=== PATIENT | male | born 1930 | race Caucasian/White ===

== ENCOUNTER 2020-06-02 17:06 | Inpatient (IN) | payer OTHER, MEDICARE ==
--- OUTSIDE RECORDS SUMMARY | 2020-06-02 17:10 | XMS REPORT | Continuity of Care Document ---
:1930 Author Organization [facility] t Address [address] [place] [address] Care Team Providers Name Role Phone Iban RUCKER Attending Clinician Renu RUCKER Attending Clinician 1, Lab Attending Clinician Unavailable Doctor Unassigned, Name Attending Clinician Unavailable Renu RUCKER Admitting Clinician Payers Payer Name Policy Type Policy Number Effective Date Expiration Date S ource Problems This patient has no known problems. Allergies, Adverse Reactions, Alerts Allergy Allergy Status Severity Reaction(s) Onset Inactive Treating Comm ents Source Name Type Date Date Clinician [place] DA Active [place] [facility] ins 06-19 00:00: [address] Medications This patient has no known medications. Procedures This patient has no known procedures. Encounters Start End Encounter Admission Attending Care Care Encounter Source Date/Time Date/Time Type Type Clinicians Facility Department ID 2019-06-19 2019-06-20 Emergency Dami Ferrera [facility] [id number] 15:24:08 15:42:00 Chase Sears [id number] [place] [id number] [place] [id number] 2018-09-04 2018-09-04 Publications Production Supervisor 1, Adc Lab [facility] [id number] 08:53:48 09:08:48 Visit Vinicio [id number] [place] 4.2.7.2.686 [place] [id number] 2018-09-04 2018-09-04 Orders Doctor KORI [id number] 00:00:00 00:00:00 Only Unassigned, LENY 350.1.13.10 [facility] [id number] [id number] Results Test Description Test Time Test Comments Results Result Comments Source ACT-ISTAT 2019-06-24 10:27:00 Test Item Value Reference Range Interpretation Comme nts ACT-ISTAT (test code = ACTI) 197 SEC 74-137 H BASIC METABOLIC [id number] 06:24:00 Test Item Value Reference Range Interpretation Comments SODIUM (test code = 136 MMOL/L 137-145 L NA) POTASSIUM (test code = 4.3 MMOL/L 3.5-5.1 N K) CHLORIDE (test code = 107 MMOL/L 98-107 N CL) CARBON DIOXIDE (test 25 MMOL/L 22-30 N code = CO2) ANION GAP (test code = 8 MMOL/L 14-24 L GAP) GLUCOSE (test code = 102 MG/DL 74-106 N GLU) BLOOD UREA NITROGEN 26 MG/DL 9-20 H (test code = BUN) GLOMERULAR FILTRATION 41 Report ing units: RATE (test code = GFR) ml/mi n/1.73 m2 (Modified MDRD Formula)Referen ce Range: > or = 6 0 ml/min/1.73 m2 CREATININE (test code 1.60 MG/DL 0.66-1.25 H = CREAT) CALCIUM (test code = 8.5 MG/DL 8.4-10.2 N CA) BASIC METABOLIC [id number] 06:23:00 Test Item Value Reference Range Interpretation Comments SODIUM (test code = 136 MMOL/L 137-145 L NA) POTASSIUM (test code = 4.3 MMOL/L 3.5-5.1 N K) CHLORIDE (test code = 107 MMOL/L 98-107 N CL) CARBON DIOXIDE (test MMOL/L 22-30 code = CO2) GLUCOSE (test code = MG/DL 74-106 GLU) BLOOD UREA NITROGEN MG/DL 9-20 (test code = BUN) GLOMERULAR FILTRATION 41 Report ing units: RATE (test code = GFR) ml/mi n/1.73 m2 (Modified MDRD Formula)Referen ce Range: > or = 6 0 ml/min/1.73 m2 CREATININE (test code 1.60 MG/DL 0.66-1.25 H = CREAT) CALCIUM (test code = MG/DL 8.7-9.7 CA) BASIC METABOLIC [id number] 06:23:00 Test Item Value Reference Range Interpretation Comments SODIUM (test code = 136 MMOL/L 137-145 L NA) POTASSIUM (test code = 4.3 MMOL/L 3.5-5.1 N K) CHLORIDE (test code = 107 MMOL/L 98-107 N CL) CARBON DIOXIDE (test 25 MMOL/L 22-30 N code = CO2) ANION GAP (test code = 8 MMOL/L 14-24 L GAP) GLUCOSE (test code = MG/DL 74-106 GLU) BLOOD UREA NITROGEN 26 MG/DL 9-20 H (test code = BUN) GLOMERULAR FILTRATION 41 Report ing units: RATE (test code = GFR) ml/mi n/1.73 m2 (Modified MDRD Formula)Referen ce Range: > or = 6 0 ml/min/1.73 m2 CREATININE (test code 1.60 MG/DL 0.66-1.25 H = CREAT) CALCIUM (test code = MG/DL 8.7-9.7 CA) BASIC METABOLIC [id number] 06:21:00 Test Item Value Reference Range Interpretation Comments SODIUM (test code = NA) 136 MMOL/L 137-145 L POTASSIUM (test code = K) 4.3 MMOL/L 3.5-5.1 N CHLORIDE (test code = CL) 107 MMOL/L 98-107 N CARBON DIOXIDE (test code = CO2) MMOL/L 22-30 GLUCOSE (test code = GLU) MG/DL 74-106 BLOOD UREA NITROGEN (test code = MG/DL 9-20 BUN) GLOMERULAR FILTRATION RATE (test code = GFR) CREATININE (test code = CREAT) MG/DL 0.66-1.25 CALCIUM (test code = CA) MG/DL 8.7-9.7 BASIC METABOLIC [id number] 06:20:00 Test Item Value Reference Range Interpretation Comments SODIUM (test code = NA) MMOL/L 137-145 POTASSIUM (test code = K) MMOL/L 3.5-5.1 CHLORIDE (test code = CL) 107 MMOL/L 98-107 N CARBON DIOXIDE (test code = CO2) MMOL/L 22-30 GLUCOSE (test code = GLU) MG/DL 74-106 BLOOD UREA NITROGEN (test code = MG/DL 9-20 BUN) GLOMERULAR FILTRATION RATE (test code = GFR) CREATININE (test code = CREAT) MG/DL 0.66-1.25 CALCIUM (test code = CA) MG/DL 8.7-9.7 CBC W/AUTO [id number] 05:46:00 Test Item Value Reference Range Interpretation Comments WHITE BLOOD CELL (test code = 6.4 K/MM3 3.8-9.8 N WBC) RED BLOOD CELL (test code = 3.37 M/MM3 3.95-5.67 L RBC) HEMOGLOBIN (test code = HGB) 11.0 G/DL 12.4-16.7 L HEMATOCRIT (test code = HCT) 33.6 % 35.9-49.5 L MEAN CELL VOLUME (test code = 100 fL 81.7-96.1 H MCV) MEAN CELL HGB (test code = MCH) 32.6 pg 27.6-33.2 N MEAN CELL HGB CONCETRATION 32.7 % 32.9-35.5 L (test code = MCHC) RED CELL DISTRIBUTION WIDTH 13.3 % 12.1-15.2 N (test code = RDW) PLATELET COUNT (test code = 124 K/MM3 129-368 L PLT) MEAN PLATELET VOLUME (test code 10.0 fl 7.4-10.4 N = MPV) NEUTROPHIL % (test code = NT%) 65.6 % 43-75 N IMMATURE GRANULOCYTE % (test 0.3 % 0.0-2.0 N code = IG%) LYMPHOCYTE % (test code = LY%) 19.7 % 14-44 N MONOCYTE % (test code = MO%) 10.4 % 4-13 N EOSINOPHIL % (test code = EO%) 3.1 % 0-6 N BASOPHIL % (test code = BA%) 0.9 % 0-2 N NUCLEATED RBC % (test code = 0.0 % 0-1.0 N NRBC%) NEUTROPHIL # (test code = NT#) 4.22 K/mm3 2.0-7.6 N IMMATURE GRANULOCYTE # (test 0.02 x10 3/uL 0-0.03 N code = IG#) LYMPHOCYTE # (test code = LY#) 1.27 K/mm3 1.0-3.8 N MONOCYTE # (test code = MO#) 0.67 K/mm3 0.1-0.8 N EOSINOPHIL # (test code = EO#) 0.20 K/mm3 0.0-0.2 N BASOPHIL # (test code = BA#) 0.06 K/mm3 0.0-0.2 N NUCLEATED RBC # (test code = 0.00 K/mm3 0.0-0.1 N NRBC#) GLUCOSE BEDSIDE [id number] 08:22:00 Test Item Value Reference Range Interpretation Comments GLUCOSE BEDSIDE TESTING (test code = 88 MG/DL 60-99 N GLUBED) GLUCOSE BEDSIDE [id number] 19:50:00 Test Item Value Reference Range Interpretation Comments GLUCOSE BEDSIDE TESTING (test code 136 MG/DL 60-99 H = GLUBED) GLUCOSE BEDSIDE [id number] 16:50:00 Test Item Value Reference Range Interpretation Comments GLUCOSE BEDSIDE TESTING (test code 127 MG/DL 60-99 H = GLUBED) GLUCOSE BEDSIDE [id number] 12:13:00 Test Item Value Reference Range Interpretation Comments GLUCOSE BEDSIDE TESTING (test code 120 MG/DL 60-99 H = GLUBED) GLUCOSE BEDSIDE [id number] 11:34:00 Test Item Value Reference Range Interpretation Comments GLUCOSE BEDSIDE TESTING (test code 128 MG/DL 60-99 H = GLUBED) - XR CHEST [id number] 07:56:00 Patient Name: MABLE LUNDBERG Unit No: [id number] EXAMS: CPT CODE: [id number] XR CHEST 1V 16925 Clinical Information: N STEMI. Chest pain. Dictation Location:J9 COMPARISON: No prior. FINDINGS: Portable frontal view of the chest taken at 4 hours semierect shows monitoring electrodes overlying the chest wall. Mild cardiomegaly. Mild central vascular interstitial prominence versus suboptimal depth of inspiration. No consolidation or effusion. Mild degenerative change in the spine and shoulders. IMPRESSION: Changes in the chest could be from cardiac decompensation or fluid overload, emphasized by low lung volumes. at 0756 Reported and signed by: Omar Treviño M.D. CC: Technologist: Avery Izquierdo, RT(R) Transcrpt Date/Tm/Trnsp: 06/21/2019 (0756) [email or web address] Orig Print D/T: S: 06/21/2019 (0759) [facility] NAME: MABLE LUNDBERG [id number] [address] PHYS: Miah [place] [address] : 1930 AGE: 89 SEX: M LOC: Sudheer Ervin PHONE #: [phone] EXAM DATE: 06/21/2019 STATUS: ADM IN FAX #: [phone] RADIOLOGY NO: PAGE 1 Signed ReportGLUCOSE BEDSIDE [id number] 07:49:00 Test Item Value Reference Range Interpretation Comments GLUCOSE BEDSIDE TESTING (test code 103 MG/DL 60-99 H = GLUBED) COMPREHENSIVE METABOLIC [id number] 07:03:00 Test Item Value Reference Range Interpretation Comments SODIUM (test code = NA) 136 MMOL/L 137-145 L POTASSIUM (test code = 3.8 MMOL/L 3.5-5.1 N K) CHLORIDE (test code = 106 MMOL/L 98-107 N CL) CARBON DIOXIDE (test 24 MMOL/L 22-30 N code = CO2) ANION GAP (test code = 10 MMOL/L 14-24 L GAP) GLUCOSE (test code = 112 MG/DL 74-106 H GLU) BLOOD UREA NITROGEN 27 MG/DL 9-20 H (test code = BUN) GLOMERULAR FILTRATION 41 Report ing units: RATE (test code = GFR) ml/mi n/1.73 m2 (Modified MDRD Formula)Referen ce Range: > or = 6 0 ml/min/1.73 m2 CREATININE (test code = 1.60 MG/DL 0.66-1.25 H CREAT) TOTAL PROTEIN (test 5.8 G/DL 6.2-7.6 L code = PROT) ALBUMIN (test code = 3.1 G/DL 3.5-5.0 L ALB) CALCIUM (test code = 8.8 MG/DL 8.4-10.2 N CA) BILIRUBIN TOTAL (test 0.3 MG/DL 0.2-1.3 N code = BILT) SGOT/AST (test code = 20 UNITS/L 17-59 N AST) SGPT/ALT (test code = 13 UNITS/L <50 ALT) ALKALINE PHOSPHATASE 64 UNITS/L 38-126 N (test code = ALKP) LIPID PROFILE (CORONARY RISK)2019-06-21 07:03:00 Test Item Value Reference Range Interpretation Comments TRIGLYCERIDES (test 139 MG/DL TRIGLYCE RIDES code = TRIG) REFERENCE RANGE:Normal: < 150 mg/dLBorderline High: 150-199 mg/dLHi gh: 200-499 mg/dLVe ry High: >=500 mg/ dL CHOLESTEROL (test code 102 MG/DL <200 = CHOL) HDL CHOLESTEROL (test 27 MG/DL 40-59 L code = HDL) LIPOPROTEIN LDL (test 55 MG/DL 0-99 N code = LDL) OPTIMAL........ .<100 mg/dLNEAR OPTIMAL/ABOVE OPTIMAL........ .100-12 9 mg/dL BORDERLINE HIGH.........13 0-159 mg/dL HIGH.........16 0-189 mg/dL VERY HIGH...... ...>/= 190 mg/dL [id number] 07:03:00 Test Item Value Reference Range Interpretation Comments MAGNESIUM (test code = MAG) 1.5 MG/DL 1.6-2.3 L LIPOPROTEIN LDL [id number] 07:03:00 Test Item Value Reference Range Interpretation Comments LIPOPROTEIN LDL DIRECT 59 mg/dL 100-129 L ===== (test code = LDLDIR) ======= ==Refe rence Interval: mg/dL mmol/L--------- ------ ------ ------ --Optimal <100 <2.6Near/abov e optimal 100-129 2.6-3.3Borderli ne High 130-159 3.4-4.1High 16 0-189 4.1-4.9Ve ry High >=190 >=4.9========= This LDL result is a direct measurement.=== ====== [id number] 07:03:00 Test Item Value Reference Range Interpretation Comments TROPONIN-I (test 0.195 NG/ML 0.012-0.033 HH CALLED TO Rena RODRIGUEZ R& code = TROPI) READBACK ON AT 0539 BY Dyllan Cotter COMPREHENSIVE METABOLIC [id number] 05:52:00 Test Item Value Reference Range Interpretation Comments SODIUM (test code = NA) 136 MMOL/L 137-145 L POTASSIUM (test code = 3.8 MMOL/L 3.5-5.1 N K) CHLORIDE (test code = 106 MMOL/L 98-107 N CL) CARBON DIOXIDE (test 24 MMOL/L 22-30 N code = CO2) ANION GAP (test code = 10 MMOL/L 14-24 L GAP) GLUCOSE (test code = 112 MG/DL 74-106 H GLU) BLOOD UREA NITROGEN 27 MG/DL 9-20 H (test code = BUN) GLOMERULAR FILTRATION 41 Report ing units: RATE (test code = GFR) ml/mi n/1.73 m2 (Modified MDRD Formula)Referen ce Range: > or = 6 0 ml/min/1.73 m2 CREATININE (test code = 1.60 MG/DL 0.66-1.25 H CREAT) TOTAL PROTEIN (test 5.8 G/DL 6.2-7.6 L code = PROT) ALBUMIN (test code = 3.1 G/DL 3.5-5.0 L ALB) CALCIUM (test code = 8.8 MG/DL 8.4-10.2 N CA) BILIRUBIN TOTAL (test 0.3 MG/DL 0.2-1.3 N code = BILT) SGOT/AST (test code = 20 UNITS/L 17-59 N AST) SGPT/ALT (test code = 13 UNITS/L <50 ALT) ALKALINE PHOSPHATASE 64 UNITS/L 38-126 N (test code = ALKP) LIPID PROFILE (CORONARY RISK)2019-06-21 05:52:00 Test Item Value Reference Range Interpretation Comments TRIGLYCERIDES (test 139 MG/DL TRIGLYCE RIDES code = TRIG) REFERENCE RANGE:Normal: < 150 mg/dLBorderline High: 150-199 mg/dLHi gh: 200-499 mg/dLVe ry High: >=500 mg/ dL CHOLESTEROL (test code 102 MG/DL <200 = CHOL) HDL CHOLESTEROL (test 27 MG/DL 40-59 L code = HDL) LIPOPROTEIN LDL (test 55 MG/DL 0-99 N code = LDL) OPTIMAL........ .<100 mg/dLNEAR OPTIMAL/ABOVE OPTIMAL........ .100-12 9 mg/dL BORDERLINE HIGH.........13 0-159 mg/dL HIGH.........16 0-189 mg/dL VERY HIGH...... ...>/= 190 mg/dL [id number] 05:52:00 Test Item Value Reference Range Interpretation Comments MAGNESIUM (test code = MAG) 1.5 MG/DL 1.6-2.3 L LIPOPROTEIN LDL [id number] 05:52:00 Test Item Value Reference Range Interpretation Comments LIPOPROTEIN LDL DIRECT (test code = mg/dL 100-129 LDLDIR) [id number] 05:52:00 Test Item Value Reference Range Interpretation Comments TROPONIN-I (test 0.195 NG/ML 0.012-0.033 CALLED TO Rena RODRIGUEZ R& code = TROPI) READBACK ON AT 0539 BY Dyllan Cotter COMPREHENSIVE METABOLIC [id number] 05:39:00 Test Item Value Reference Range Interpretation Comments SODIUM (test code = NA) 136 MMOL/L 137-145 L POTASSIUM (test code = 3.8 MMOL/L 3.5-5.1 N K) CHLORIDE (test code = 106 MMOL/L 98-107 N CL) CARBON DIOXIDE (test 24 MMOL/L 22-30 N code = CO2) ANION GAP (test code = 10 MMOL/L 14-24 L GAP) GLUCOSE (test code = 112 MG/DL 74-106 H GLU) BLOOD UREA NITROGEN 27 MG/DL 9-20 H (test code = BUN) GLOMERULAR FILTRATION 41 Report ing units: RATE (test code = GFR) ml/mi n/1.73 m2 (Modified MDRD Formula)Referen ce Range: > or = 6 0 ml/min/1.73 m2 CREATININE (test code = 1.60 MG/DL 0.66-1.25 H CREAT) TOTAL PROTEIN (test 5.8 G/DL 6.2-7.6 L code = PROT) ALBUMIN (test code = 3.1 G/DL 3.5-5.0 L ALB) CALCIUM (test code = 8.8 MG/DL 8.4-10.2 N CA) BILIRUBIN TOTAL (test 0.3 MG/DL 0.2-1.3 N code = BILT) SGOT/AST (test code = 20 UNITS/L 17-59 N AST) SGPT/ALT (test code = 13 UNITS/L <50 ALT) ALKALINE PHOSPHATASE 64 UNITS/L 38-126 N (test code = ALKP) LIPID PROFILE (CORONARY RISK)2019-06-21 05:39:00 Test Item Value Reference Range Interpretation Comments TRIGLYCERIDES (test 139 MG/DL TRIGLYCE RIDES code = TRIG) REFERENCE RANGE:Normal: < 150 mg/dLBorderline High: 150-199 mg/dLHi gh: 200-499 mg/dLVe ry High: >=500 mg/ dL CHOLESTEROL (test code 102 MG/DL <200 = CHOL) HDL CHOLESTEROL (test MG/DL 40-59 code = HDL) LIPOPROTEIN LDL (test 55 MG/DL 0-99 N code = LDL) OPTIMAL........ .<100 mg/dLNEAR OPTIMAL/ABOVE OPTIMAL........ .100-12 9 mg/dL BORDERLINE HIGH.........13 0-159 mg/dL HIGH.........16 0-189 mg/dL VERY HIGH...... ...>/= 190 mg/dL [id number] 05:39:00 Test Item Value Reference Range Interpretation Comments MAGNESIUM (test code = MAG) 1.5 MG/DL 1.6-2.3 L LIPOPROTEIN LDL [id number] 05:39:00 Test Item Value Reference Range Interpretation Comments LIPOPROTEIN LDL DIRECT (test code = mg/dL 100-129 LDLDIR) [id number] 05:39:00 Test Item Value Reference Range Interpretation Comments TROPONIN-I (test 0.195 NG/ML 0.012-0.033 CALLED TO Rena RODRIGUEZ R& code = TROPI) READBACK ON AT 0539 BY Dyllan Cotter COMPREHENSIVE METABOLIC [id number] 05:24:00 Test Item Value Reference Range Interpretation Comments SODIUM (test code = NA) 136 MMOL/L 137-145 L POTASSIUM (test code = 3.8 MMOL/L 3.5-5.1 N K) CHLORIDE (test code = 106 MMOL/L 98-107 N CL) CARBON DIOXIDE (test 24 MMOL/L 22-30 N code = CO2) ANION GAP (test code = 10 MMOL/L 14-24 L GAP) GLUCOSE (test code = 112 MG/DL 74-106 H GLU) BLOOD UREA NITROGEN 27 MG/DL 9-20 H (test code = BUN) GLOMERULAR FILTRATION 41 Report ing units: RATE (test code = GFR) ml/mi n/1.73 m2 (Modified MDRD Formula)Referen ce Range: > or = 6 0 ml/min/1.73 m2 CREATININE (test code = 1.60 MG/DL 0.66-1.25 H CREAT) TOTAL PROTEIN (test 5.8 G/DL 6.2-7.6 L code = PROT) ALBUMIN (test code = 3.1 G/DL 3.5-5.0 L ALB) CALCIUM (test code = 8.8 MG/DL 8.4-10.2 N CA) BILIRUBIN TOTAL (test 0.3 MG/DL 0.2-1.3 N code = BILT) SGOT/AST (test code = 20 UNITS/L 17-59 N AST) SGPT/ALT (test code = 13 UNITS/L <50 ALT) ALKALINE PHOSPHATASE 64 UNITS/L 38-126 N (test code = ALKP) LIPID PROFILE (CORONARY RISK)2019-06-21 05:24:00 Test Item Value Reference Range Interpretation Comments TRIGLYCERIDES (test 139 MG/DL TRIGLYCE RIDES code = TRIG) REFERENCE RANGE:Normal: < 150 mg/dLBorderline High: 150-199 mg/dLHi gh: 200-499 mg/dLVe ry High: >=500 mg/ dL CHOLESTEROL (test code 102 MG/DL <200 = CHOL) HDL CHOLESTEROL (test MG/DL 40-59 code = HDL) LIPOPROTEIN LDL (test MG/DL 0-99 code = LDL) [id number] 05:24:00 Test Item Value Reference Range Interpretation Comments MAGNESIUM (test code = MAG) 1.5 MG/DL 1.6-2.3 L [id number] 05:24:00 Test Item Value Reference Range Interpretation Comments TROPONIN-I (test code = TROPI) NG/ML 0.0-0.045 PROTHROMBIN [id number] 05:17:00 Test Item Value Reference Range Interpretation Comments PROTHROMBIN TIME 12.3 SECONDS 9.4-12.5 N PATIENT (test code = PTP) INTERNATIONAL NORMAL 1.1 The INR is to be RATIO (test code = used only for INR) monitoring oral anticoagulantth erap y. INDICATION I NR VALUE ---- ---- ---- -------1. Prophylaxis, de ep venous thrombos is, including hig h risk surgery. 2.0 - 3.0 2. Prophylaxis, de ep venous thrombos is, hip surgery, treatment for d eep venous thrombosis or pulmonary prevention of systemic emboli sm in patients wit h valvular heart disease, atrial fibrillation, tissue heart va lve, or acute myocar dial infarction. 2.0 - 3 .0 3. Mechanical prosthesis hear t valves, recurrent syste georges embolism. 3.0 - 4.5 PATIENT REFUSE THE BLOOD DRAW. NOTIFIED PATIENT CARE STAFF:CUATE ON 06/20/19 AT 1948 BY KARYNSSUNABLE TO DRAW BLOOD, REASON: PT IS NOT HERE NOTIFIED PATIENT CARE STAFF: CECIL QUINTERO WILL CALL MELLISSA 06/20/19AT 1630 BY Geovanna Feng W/AUTO [id number] 05:03:00 Test Item Value Reference Range Interpretation Comments WHITE BLOOD CELL (test code = 4.6 K/MM3 3.8-9.8 N WBC) RED BLOOD CELL (test code = 3.18 M/MM3 3.95-5.67 L RBC) HEMOGLOBIN (test code = HGB) 10.7 G/DL 12.4-16.7 L HEMATOCRIT (test code = HCT) 31.3 % 35.9-49.5 L MEAN CELL VOLUME (test code = 98 fL 81.7-96.1 H MCV) MEAN CELL HGB (test code = MCH) 33.6 pg 27.6-33.2 H MEAN CELL HGB CONCETRATION 34.2 % 32.9-35.5 N (test code = MCHC) RED CELL DISTRIBUTION WIDTH 13.2 % 12.1-15.2 N (test code = RDW) PLATELET COUNT (test code = 140 K/MM3 129-368 N PLT) MEAN PLATELET VOLUME (test code 10.5 fl 7.4-10.4 H = MPV) NEUTROPHIL % (test code = NT%) 58.4 % 43-75 N IMMATURE GRANULOCYTE % (test 0.2 % 0.0-2.0 N code = IG%) LYMPHOCYTE % (test code = LY%) 26.0 % 14-44 N MONOCYTE % (test code = MO%) 10.6 % 4-13 N EOSINOPHIL % (test code = EO%) 3.7 % 0-6 N BASOPHIL % (test code = BA%) 1.1 % 0-2 N NUCLEATED RBC % (test code = 0.0 % 0-1.0 N NRBC%) NEUTROPHIL # (test code = NT#) 2.70 K/mm3 2.0-7.6 N IMMATURE GRANULOCYTE # (test 0.01 x10 3/uL 0-0.03 N code = IG#) LYMPHOCYTE # (test code = LY#) 1.20 K/mm3 1.0-3.8 N MONOCYTE # (test code = MO#) 0.49 K/mm3 0.1-0.8 N EOSINOPHIL # (test code = EO#) 0.17 K/mm3 0.0-0.2 N BASOPHIL # (test code = BA#) 0.05 K/mm3 0.0-0.2 N NUCLEATED RBC # (test code = 0.00 K/mm3 0.0-0.1 N NRBC#) PATIENT REFUSE THE BLOOD DRAW. NOTIFIED PATIENT CARE STAFF:CUATE ON 06/20/19 AT 1948 BY Z.LAB.SSUNABLE TO DRAW BLOOD, REASON: PT IS NOT HERENOTIFIED PATIENT CARE STAFF: CECIL QUINTERO WILL CALL LABON 06/20/19 AT 1631 BY Donavan Feng
--- NOTE | 2020-06-02 17:42 | RAD REPORT ---
EXAM DESCRIPTION: CT - Ct Stroke Brain Wo Cont - 06/02/2020 5:30 pm CLINICAL HISTORY: Dizziness COMPARISON: none TECHNIQUE: Computed axial tomography of the head was obtained. All CT scans are performed using dose optimization technique as appropriate and may include automated exposure control or mA/KV adjustment according to patient size. FINDINGS: An intracranial bleed is not seen . The ventricles are normal in caliber. No extra-axial fluid collection is noted. Mild low-density within periventricular, deep and subcortical white matter likely ischemic changes se condary to small vessel disease Fluid within the sinuses/ mastoids is not seen. IMPRESSION: No acute intracranial abnormality is seen. If patient's symptoms persist MRI of the bra in would be recommended. Zach of the emergency room was notified at 5:37 p.m. June 02, 2020
--- NOTE | 2020-06-02 17:47 | RAD REPORT ---
EXAM DESCRIPTION: CT - C Spine Wo Con - 06/02/2020 5:34 pm CLINICAL HISTORY: Neck injury status post fall. Neck pain COMPARISON: None. TECHNIQUE: Computed axial tomography of the cervical spine were obtained with sagittal and coronal r econstruction images generated and reviewed. All CT scans are performed using dose optimization technique as appropriate and may include automated exposure control or mA/KV adjustment according to patient size. FINDINGS: No acute cervical fracture seen. Bony/calcific density near the tip of the dens appears chronic. No dislocation. Spondylosis involves the cervical spine. IMPRESSION: No acute cervical fracture seen . If the patient continues have symptoms to suggest spinal cord/spinal canal pathology then MRI would b e recommended.
--- NOTE | 2020-06-02 17:57 | RAD REPORT ---
EXAM DESCRIPTION: CT - Chest Abd Pelvis Wo Con - 06/02/2020 5:34 pm CLINICAL HISTORY: Fall with chest and abdominal pain COMPARISON: none TECHNIQUE: Computed axial tomography of the chest, abdomen and pelvis was obtained. Oral contrast wa s not given. IV contrast was not requested. All CT scans are performed using dose optimization technique as appropriate and may include automated exposure control or mA/KV adjustment according to patient size. Computed axial tomography of the chest obtained. Oral contrast was not given. IV contrast was not req uested. FINDINGS: The evaluation of mediastinum, haley, vessels, bowel and solid organs is limited secondary to the lack of IV contrast administration A lung contusion is not present. A pleural effusion is not present. A pericardial effusion is not seen. Coronary arterial calcificatio ns. A moderate hiatal hernia A mediastinal hematoma is not seen. The liver, spleen, pancreas, adrenals, kidneys and bladder do not demonstrate a traumatic injury. Left lower quadrant colostomy. Peristomal hernia. Infrarenal abdominal aortic aneurysm with an AP dre meter of 3.9 centimeters IMPRESSION: No traumatic injury involving the chest, abdomen or pelvis is seen 3.9 centimeter abdominal aortic aneurysm
[2020-06-02 18:15] LABS: Absolute Lymphocytes (CBC) 1.3 K/uL (0.7-4.9); Hematocrit 38.6 % (39.6-49.0); MPV 8.6 fL (7.6-11.3); RBC Red Blood Cell Count 3.97 M/uL (4.33-5.43)
--- NOTE | 2020-06-02 18:24 | RAD REPORT ---
EXAM DESCRIPTION: Silvina Single View06/02/2020 5:59 pm CLINICAL HISTORY: Colon cancer COMPARISON: none FINDINGS: The lungs appear clear of acute infiltrate. The heart is mildly enlarged IMPRESSION: No acute abnormalities displayed
[2020-06-02 18:31] LABS: ALT/SGPT 20 U/L (12-78); AST/SGOT 23 U/L (15-37); Albumin 3.7 g/dL (3.4-5.0); Alkaline Phosphatase 96 U/L (45-117); BUN Blood Urea Nitrogen 26 mg/dL (7-18); Bicarbonate 23 mmol/L (21-32); Bilirubin Direct 0.2 mg/dL (0-0.2); Bilirubin Total 0.7 mg/dL (0.2-1.0); Glucose Level 123 mg/dL (74-106); Magnesium 1.8 mg/dL (1.8-2.4); Potassium 4.2 mmol/L (3.5-5.1); Protein, Total 7.3 g/dL (6.4-8.2); Sodium Level 142 mmol/L (136-145); Troponin (Emerg Dept Use Only) < 0.02 ng/mL (0.0-0.045)
[2020-06-02 18:37] LABS: Protime INR 1.03
--- NOTE | 2020-06-02 18:52 | ER ---
Nurse's Notes [facility] Name: Cooper Mitchell Age: 89 yrs Sex: Male : 1930 Arrival Date: 06/02/2020 Time: 17:09 Bed 5 Private MD: Diagnosis: Cerebral infarction Presentation: 06/02 17:17 Chief complaint: Patient states: slurred speech and left sided numbness that started em yesterday at 12-1 PM, pt fell and hit head, son reports speech is still slurred denies, denies any pain. Coronavirus screen: Client denies travel out of the [place] in the last 14 days. Ebola Screen: Patient negative for fever greater than or equal to 101.5 degrees Fahrenheit, and additional compatible Ebola Virus Disease symptoms Patient denies exposure to infectious person. Patient denies travel to an Ebola-affected area in the 21 days before illness onset. No symptoms or risks identified at this time. Initial Sepsis Screen: Does the patient meet any 2 criteria? No. Patient's initial sepsis screen is negative. Does the patient have a suspected source of infection? No. Patient's initial sepsis screen is negative. Risk Assessment: Do you want to hurt yourself or someone else? Patient reports no desire to harm self or others. Onset of symptoms was June 01, 2020. 17:17 Method Of Arrival: Wheelchair em 17:17 Acuity: LENNOX 2 em Historical: - Allergies: 17:22 No Known Allergies; em - PMHx: 17:22 CVA; Hypertension; prostate CA; bladder CA; colon CA; em - PSHx: 17:22 Heart stents; em - Immunization history:: Adult Immunizations up to date. - Social history:: Smoking status: Patient denies any tobacco usage or history of. Screenin:30 VAN Screening: Arm Drift: Patient shows no arm weakness. Patient is VAN negative. jd3 17:56 Abuse screen: Denies threats or abuse. Nutritional screening: No deficits noted. jd3 Tuberculosis screening: No symptoms or risk factors identified. Fall Risk Ambulatory Aid- None/Bed Rest/Nurse Assist (0 pts). Gait- Normal/Bed Rest/Wheelchair (0 pts) Mental Status- Oriented to own ability (0 pts). Total Xiao Fall Scale indicates No Risk (0-24 pts). 17:57 The patient has not been NPO before screening. The patient is currently on the jd3 following diet: regular The patient is alert, able to follow commands. The patient exhibits slurred or garbled speech. Provider notified of indication for Speech Therapy consult. The patient is not exhibiting difficulty speaking. The patient does not exhibit difficulty understanding words. The patient is able to swallow own secretions with no drooling or need for suction. Patient tolerated one teaspoon of water. No drooling, immediate coughing, gurgling, or clearing of the throat was noted. The patient tolerated 90mL of water. No drooling, immediate coughing, gurgling, or clearing of the throat was noted. The patient passed the bedside swallow screening. Oral medications may be given as ordered. Contact Physician for further diet orders. Provider notified of bedside swallow screening results: Levi TREJO. Assessment: 17:20 General: Appears in no apparent distress. uncomfortable, Behavior is calm, cooperative, jd3 appropriate for age. Pain: Complains of pain in mid back area Quality of pain is described as aching, tender. Neuro: Level of Consciousness is awake, alert, obeys commands, Oriented to person, place, time, situation, Neck Cutter are equal bilaterally Gait is unsteady, Speech is slurred, Facial droop on right, Intact. Cardiovascular: Denies chest pain, Capillary refill < 3 seconds Patient's skin is warm and dry. Rhythm is regular. Respiratory: Airway is patent Respiratory effort is even, unlabored, Respiratory pattern is regular, symmetrical, Denies cough, shortness of breath. GI: No signs and/or symptoms were reported involving the gastrointestinal system. Patient currently denies abdominal pain, diarrhea, nausea, vomiting. : No signs and/or symptoms were reported regarding the genitourinary system. EENT: No signs and/or symptoms were reported regarding the EENT system. Derm: Skin is intact, Skin is dry, Skin is normal, Skin temperature is warm. Musculoskeletal: Circulation, motion, and sensation intact. Range of motion: intact in all extremities. 18:20 Reassessment: No changes from previously documented assessment. Patient and/or family jd3 updated on plan of care and expected duration. Pain level reassessed. Patient is alert, oriented x 3, equal unlabored respirations, skin warm/dry/pink. 20:17 General: Appears in no apparent distress. Behavior is calm, cooperative, appropriate ea for age. Pain: Denies pain. Neuro: Level of Consciousness is awake, alert, obeys commands, Oriented to person, place, time, situation. Cardiovascular: Patient's skin is warm and dry. Respiratory: Airway is patent Respiratory effort is even, unlabored, Respiratory pattern is regular, symmetrical. Derm: Skin is pink, warm \T\ dry. Vital Signs: 17:17 BP 126 / 75; Pulse 74; Resp 18; Temp 97.8; Pulse Ox 99% on R/A; Weight 99.79 kg; Height em 6 ft. 3 in. (190.50 cm); Pain 0/10; 17:47 BP 171 / 82; Pulse 68; Resp 20; Pulse Ox 99% on R/A; mh5 18:49 BP 132 / 62; Pulse 63; Resp 19 S; Pulse Ox 100% on R/A; jd3 20:22 BP 143 / 72; Pulse 62; Resp 18; Pulse Ox 98% on R/A; ea 17:17 Body Mass Index 27.50 (99.79 kg, 190.50 cm) em NIH Stroke Scale Scores: 17:30 NIHSS Score: 4 jd3 18:39 NIHSS Score: 3 [facility] ED Course: 17:09 Patient arrived in ED. ds1 17:18 Candido Velasquez, RN is Primary Nurse. jd3 17:21 Triage completed. em 17:22 Levi Curtis PA is PHCP. jr8 17:22 Rob Sierra MD is Attending Physician. jr8 17:22 Arm band placed on. em 17:30 CT Stroke Brain w/o Contrast In Process Unspecified. EDMS 17:34 C Spine Wo Con In Process Unspecified. EDMS 17:34 Chest Abd Pelvis Wo Con In Process Unspecified. EDMS 17:37 Patient has correct armband on for positive identification. Placed in gown. Bed in low 5 position. Call light in reach. Side rails up X 1. Adult w/ patient. Warm blanket given. compliance monitor on. Pulse ox on. NIBP on. 17:38 EKG done, by ED staff, reviewed by Levi TREJO. 5 17:47 Stroke CXR 1 View Sent. 5 17:54 Inserted saline lock: 20 gauge in right forearm, using aseptic technique. Blood jd3 collected. 17:59 Stroke CXR 1 View In Process Unspecified. EDMS 18:51 Homer Arvizu DO is Hospitalizing Provider. jr8 19:29 No provider procedures requiring assistance completed. Patient admitted, IV remains in ea place. Administered Medications: 18:59 Drug: Aspirin Chewable Tablet 162 mg Route: PO; jd3 20:21 Follow up: Response: No adverse reaction ea Outcome: 18:51 Decision to Hospitalize by Provider. jr8 19:29 Instructed on the need for admit, Demonstrated understanding of instructions. ea 21:19 Admitted to Tele accompanied by nurse, via stretcher, room 431, Other SBAR, EKG Report rv called to KEERTHI JACOB 21:19 Condition: good 21:19 Patient left the ED. rv NIH Stroke Scale - NIH Stroke Score Date: 06/02/2020 Time: 17:30 Total Score = 4 1a. Level of Consciousness (LOC) - 0(Alert) 1b. Level of Consciousness (LOC) (Year \T\ Age) - 0(Both) 1c. LOC Commands (Open \T\ Closes Eyes/[employer] Footballer) - 0(Both) 2. Best Gaze (Lateral Gaze Paresis) - 0(Normal) 3. Visual Field Loss - 0(No visual loss) 4. Facial Palsy - 1(Minor Paralysis) 5a. Left Arm: Motor (10-second hold) - 0(No drift) 5b. Right Arm: Motor (10-second hold) - 0(No drift) 6a. Left Leg: Motor (5-second hold - always test supine) - 0(No drift) 6b. Right Leg: Motor (5-second hold - always test supine) - 0(No drift) 7. Limb Ataxia (finger/nose \T\ heel/owens - test with eyes open) - 2(Present in two limbs) 8. Sensory Loss (pinprick arms/legs/face) - 0(Normal) 9. Best Language: Aphasia (description/naming/reading) - 0(No aphasia) 10. Dysarthria (speech clarity - read or repeat words) - 1(Mild to Moderate) 11. Extinction and Inattention (visual/tactile/auditory/spatial/personal) - 0(No abnormality) Initials: jd3 NIH Stroke Scale - NIH Stroke Score Date: 06/02/2020 Time: 18:39 Total Score = 3 1a. Level of Consciousness (LOC) - 0(Alert) 1b. Level of Consciousness (LOC) (Year \T\ Age) - 0(Both) 1c. LOC Commands (Open \T\ Closes Eyes/[employer] Footballer) - 0(Both) 2. Best Gaze (Lateral Gaze Paresis) - 0(Normal) 3. Visual Field Loss - 0(No visual loss) 4. Facial Palsy - 0(Normal) 5a. Left Arm: Motor (10-second hold) - 0(No drift) 5b. Right Arm: Motor (10-second hold) - 0(No drift) 6a. Left Leg: Motor (5-second hold - always test supine) - 0(No drift) 6b. Right Leg: Motor (5-second hold - always test supine) - 0(No drift) 7. Limb Ataxia (finger/nose \T\ heel/owens - test with eyes open) - 2(Present in two limbs) 8. Sensory Loss (pinprick arms/legs/face) - 0(Normal) 9. Best Language: Aphasia (description/naming/reading) - 0(No aphasia) 10. Dysarthria (speech clarity - read or repeat words) - 1(Mild to Moderate) 11. Extinction and Inattention (visual/tactile/auditory/spatial/personal) - 0(No abnormality) Initials: lyn Signatures: Dispatcher [employer] Compa Pfeiffer, RN RN Linda Yin ds1 Levi Curtis PA PA jr8 Jeimy Lazaro Susan Curran RN RN ea Davies, Jonathon, RN RN jd3 Vicente, Ronaldo, RN RN rv Corrections: (The following items were deleted from the chart) 18:44 17:56 VAN Screening: Arm Drift: Patient shows no arm weakness. Patient is VAN jd3 negative. mao
--- NOTE | 2020-06-02 18:52 | EDPHYS ---
Physician Documentation [facility] [place], [place] Name: Cooper Mitchell Age: 89 yrs Sex: Male : 1930 Arrival Date: 06/02/2020 Time: 17:09 Bed 5 Private MD: ED Physician Rob Sierra HPI: 06/02 18:28 This 89 yrs old Male presents to ER via Wheelchair with complaints of Falling.jr8 18:28 The patient's problem is reported as difficulty walking, falling to right. Onset: The jr8 symptoms/episode began/occurred acutely, yesterday. Duration: This was a single incident. Context: symptoms became apparent on June 01, 2020, occurred at home, occurred while the patient was at rest. The symptoms are alleviated by rest, The symptoms are aggravated by walking. Severity of symptoms: At their worst the symptoms were moderate in the emergency department the symptoms are unchanged. Patient's baseline: Neuro: alert and fully oriented, Motor: no deficits, Ambulation: walks without assistance, Speech: normal. The patient has not experienced similar symptoms in the past. The patient has not recently seen a physician. 18:39 Patient stated that he noticed himself feeling off balance yesterday. Falling to right jr8 side and actually fell and hit the ground 4 times yesterday. Called family this morning to help him after it did not go away. Historical: - Allergies: 17:22 No Known Allergies; em - PMHx: 17:22 CVA; Hypertension; prostate CA; bladder CA; colon CA; em - PSHx: 17:22 Heart stents; em - Immunization history:: Adult Immunizations up to date. - Social history:: Smoking status: Patient denies any tobacco usage or history of. ROS: 18:39 Eyes: Negative for injury, pain, redness, and discharge, ENT: Negative for injury, jr8 pain, and discharge, Neck: Negative for injury, pain, and swelling, Cardiovascular: Negative for chest pain, palpitations, and edema, Respiratory: Negative for shortness of breath, cough, wheezing, and pleuritic chest pain, Abdomen/GI: Negative for abdominal pain, nausea, vomiting, diarrhea, and constipation, Back: Negative for injury and pain, MS/Extremity: Negative for injury and deformity, Skin: Negative for injury, rash, and discoloration. 18:39 Neuro: Positive for gait disturbance, speech changes. Exam: 18:39 Radiologist reports: No acute findings jr8 18:39 Eyes: Pupils equal round and reactive to light, extra-ocular motions intact. Lids and lashes normal. Conjunctiva and sclera are non-icteric and not injected. Cornea within normal limits. Periorbital areas with no swelling, redness, or edema. ENT: Nares patent. No nasal discharge, no septal abnormalities noted. Tympanic membranes are normal and external auditory canals are clear. Oropharynx with no redness, swelling, or masses, exudates, or evidence of obstruction, uvula midline. Mucous membranes moist. Neck: Trachea midline, no thyromegaly or masses palpated, and no cervical lymphadenopathy. Supple, full range of motion without nuchal rigidity, or vertebral point tenderness. No Meningismus. Cardiovascular: Regular rate and rhythm with a normal S1 and S2. No gallops, murmurs, or rubs. Normal PMI, no JVD. No pulse deficits. Respiratory: Lungs have equal breath sounds bilaterally, clear to auscultation and percussion. No rales, rhonchi or wheezes noted. No increased work of breathing, no retractions or nasal flaring. Abdomen/GI: Soft, non-tender, with normal bowel sounds. No distension or tympany. No guarding or rebound. No evidence of tenderness throughout. Back: No spinal tenderness. No costovertebral tenderness. Full range of motion. Skin: Warm, dry with normal turgor. Normal color with no rashes, no lesions, and no evidence of cellulitis. MS/ Extremity: Pulses equal, no cyanosis. Neurovascular intact. Full, normal range of motion. 18:39 Neuro: Orientation: to person, place, time \\T\\ situation. Mentation: is normal, Memory: is normal, Cranial nerves: CN I not tested, CN II- XII are normal as tested, visual galicia are intact. extraocular movements are intact, Facial palsy and sensory deficits are absent. Speech is slurred, Tongue strength is normal, Cerebellar function: dysmetria is noted on the right, the patient is unable to track right heel to left owens, Motor: moves all fours, Sensation: no obvious gross deficits, Gait: not tested. seizure activity, is not displayed by the patient, Abnormal movements: there are no abnormal movements. Vital Signs: 17:17 BP 126 / 75; Pulse 74; Resp 18; Temp 97.8; Pulse Ox 99% on R/A; Weight 99.79 kg; Height em 6 ft. 3 in. (190.50 cm); Pain 0/10; 17:47 BP 171 / 82; Pulse 68; Resp 20; Pulse Ox 99% on R/A; mh5 18:49 BP 132 / 62; Pulse 63; Resp 19 S; Pulse Ox 100% on R/A; jd3 20:22 BP 143 / 72; Pulse 62; Resp 18; Pulse Ox 98% on R/A; ea 17:17 Body Mass Index 27.50 (99.79 kg, 190.50 cm) em NIH Stroke Scale Scores: 17:30 NIHSS Score: 4 jd3 18:39 NIHSS Score: 3 jr8 MDM: 17:22 Patient medically screened. [facility] 18:39 Data reviewed: vital signs, nurses notes, lab test result(s), EKG, radiologic studies, [facility] CT scan, plain films. Data interpreted: Pulse oximetry: on room air is 99 %. Interpretation: normal. Counseling: I had a detailed discussion with the patient and/or guardian regarding: the historical points, exam findings, and any diagnostic results supporting the discharge/admit diagnosis, lab results, radiology results, the need for further work-up and treatment in the hospital. 06/02 17:22 Order name: Hepatic Function [facility] 06/02 17:22 Order name: Troponin (emerg Dept Use Only) [facility] 06/02 17:22 Order name: Magnesium; Complete Time: 18:49 [facility] 06/02 17:22 Order name: Basic Metabolic Panel; Complete Time: 18:49 [facility] 06/02 17:22 Order name: CBC with Diff; Complete Time: 18:49 [facility] 06/02 17:22 Order name: Protime (+inr); Complete Time: 18:49 [facility] 06/02 17:22 Order name: Ptt, Activated; Complete Time: 18:49 [facility] 06/02 17:22 Order name: CT Stroke Brain w/o Contrast; Complete Time: 17:48 [facility] 06/02 17:22 Order name: Stroke CXR 1 View; Complete Time: 18:27 [facility] 06/02 17:23 Order name: Liver (Hepatic) Function; Complete Time: 18:49 EDMS 06/02 17:23 Order name: Troponin (Emerg Dept Use Only); Complete Time: 18:49 EDMS 06/02 19:29 Order name: COVID-19 : Document "Date of Symptom Onset" if Symptomatic. mw2 06/02 20:51 Order name: SARS-COV-2 RT PCR; Complete Time: 20:59 EDMS 06/02 17:22 Order name: EKG; Complete Time: 17:23 8 06/02 17:22 Order name: Accucheck; Complete Time: 17:53 8 06/02 17:22 Order name: Cardiac monitoring; Complete Time: 17:46 8 06/02 17:22 Order name: EKG - Nurse/Tech; Complete Time: 17:46 8 06/02 17:22 Order name: IV Saline Lock; Complete Time: 17:53 8 06/02 17:22 Order name: Labs collected and sent; Complete Time: 17:53 8 06/02 17:22 Order name: NPO; Complete Time: 17:46 8 06/02 17:22 Order name: O2 Per Protocol; Complete Time: 17:53 8 06/02 17:22 Order name: O2 Sat Monitoring; Complete Time: 17:53 8 06/02 17:22 Order name: Stroke Swallow Screen; Complete Time: 17:46 8 06/02 17:30 Order name: C Spine Wo Con; Complete Time: 17:48 EDMS 06/02 17:30 Order name: Chest Abd Pelvis Wo Con; Complete Time: 18:14 EDMS Administered Medications: 18:59 Drug: Aspirin Chewable Tablet 162 mg Route: PO; jd3 20:21 Follow up: Response: No adverse reaction ea Disposition: 06/02/20 18:51 Hospitalization ordered by Homer Arvizu for Inpatient Admission. Preliminary diagnosis is Cerebral infarction. - Bed requested for Telemetry/MedSurg (Inpatient). - Status is Inpatient Admission. rv - Condition is Stable. - Problem is new. - Symptoms are unchanged. NIH Stroke Scale - NIH Stroke Score Date: 06/02/2020 Time: 17:30 Total Score = 4 1a. Level of Consciousness (LOC) - 0(Alert) 1b. Level of Consciousness (LOC) (Year \\T\\ Age) - 0(Both) 1c. LOC Commands (Open \\T\\ Closes Eyes/[employer] Roaster) - 0(Both) 2. Best Gaze (Lateral Gaze Paresis) - 0(Normal) 3. Visual Field Loss - 0(No visual loss) 4. Facial Palsy - 1(Minor Paralysis) 5a. Left Arm: Motor (10-second hold) - 0(No drift) 5b. Right Arm: Motor (10-second hold) - 0(No drift) 6a. Left Leg: Motor (5-second hold - always test supine) - 0(No drift) 6b. Right Leg: Motor (5-second hold - always test supine) - 0(No drift) 7. Limb Ataxia (finger/nose \\T\\ heel/owens - test with eyes open) - 2(Present in two limbs) 8. Sensory Loss (pinprick arms/legs/face) - 0(Normal) 9. Best Language: Aphasia (description/naming/reading) - 0(No aphasia) 10. Dysarthria (speech clarity - read or repeat words) - 1(Mild to Moderate) 11. Extinction and Inattention (visual/tactile/auditory/spatial/personal) - 0(No abnormality) Initials: jd3 NIH Stroke Scale - NIH Stroke Score Date: 06/02/2020 Time: 18:39 Total Score = 3 1a. Level of Consciousness (LOC) - 0(Alert) 1b. Level of Consciousness (LOC) (Year \\T\\ Age) - 0(Both) 1c. LOC Commands (Open \\T\\ Closes Eyes/C[employer] Roaster) - 0(Both) 2. Best Gaze (Lateral Gaze Paresis) - 0(Normal) 3. Visual Field Loss - 0(No visual loss) 4. Facial Palsy - 0(Normal) 5a. Left Arm: Motor (10-second hold) - 0(No drift) 5b. Right Arm: Motor (10-second hold) - 0(No drift) 6a. Left Leg: Motor (5-second hold - always test supine) - 0(No drift) 6b. Right Leg: Motor (5-second hold - always test supine) - 0(No drift) 7. Limb Ataxia (finger/nose \\T\\ heel/owens - test with eyes open) - 2(Present in two limbs) 8. Sensory Loss (pinprick arms/legs/face) - 0(Normal) 9. Best Language: Aphasia (description/naming/reading) - 0(No aphasia) 10. Dysarthria (speech clarity - read or repeat words) - 1(Mild to Moderate) 11. Extinction and Inattention (visual/tactile/auditory/spatial/personal) - 0(No abnormality) Initials: jr8 Addendum: 06/04/2020 06:39 Co-signature as Attending Physician, Rob Sierra MD I agree with the 4 assessment and plan of care. Signatures: Dispatcher [employer] [facility] Tamara Mercer RN RN dw Munoz, Edgar, RN Levi Oquendo PA PA jr8 Narinder Jasso, EQUIPMENT MAINTENANCE ENGINEER-C EQUIPMENT MAINTENANCE ENGINEER-Cla1 Candido Velasquez RN CECIL jRob Coffman MD MD rust Jonn Angeles, RN Susan Santos RN, ea Corrections: (The following items were deleted from the chart) 06/02 20:08 19:29 CORONAVIRUS ordered. [facility] 20:55 18:51 Hospitalization Ordered by Homer Arvizu DO for Inpatient Admission. Preliminary diagnosis is Cerebral infarction. Bed requested for Telemetry/MedSurg (Inpatient). Status is Inpatient Admission. Condition is Stable. Problem is new. Symptoms are unchanged. 8 21:19 20:55 06/02/2020 18:51 Hospitalization Ordered by Homer Arvizu DO for Inpatient Admission. Preliminary diagnosis is Cerebral infarction. Bed requested for Telemetry/MedSurg (Inpatient). Status is Inpatient Admission. Condition is Stable. Problem is new. Symptoms are unchanged.
[2020-06-02] MEDS ORDERED: ASPIRIN 81 MG CHEWABLE TABLET ONE (19:13)
--- NOTE | 2020-06-02 19:46 | P.HP ---
Certification for Inpatient Patient admitted to: Inpatient With expected LOS: >2 Midnights Patient will require the following post-hospital care: None Practitioner: I am a practitioner with admitting privileges, knowledge of patient current condition, hospital course, and medical plan of care. Services: Services provided to patient in accordance with Admission requirements found in Title 42 Section 412.3 of the Code of Federal Regulations Patient History Date of Service: 06/02/20 History of Present Illness: 89-year-old male with history of hypertension, CAD, bladder, prostate, colon cancer presents emergency department for multiple falls, slurred speech. Patient reports that symptoms began on 06/01/2020 at approximately noon, patient reports a full resulting from the feeling of dizziness/instability, patient reports that he has had slurred speech since his fall, reports multiple falls throughout the course of the day yesterday primarily to the right side. Patient was brought in by his son to the emergency department for evaluation, during his stay in the emergency department patient noted to have right-sided facial droop, slurred speech and right-sided dysmetria on exam, CT head without contrast negative for any acute findings, CT chest abdomen pelvis without contrast demonstrates no acute traumatic findings but did note a 3.9 cm abdominal aortic aneurysm. No comparison is available. Lab significant for creatinine 1.65 GFR 40 BUN 26 patient GFR appears to be stable from labs dating back to 2014. ED provider wishes to admit patient for further evaluation of possible CVA. - Past Medical/Surgical History -: CAD -: Hypertension -: Bladder, prostate, colon cancer -: Colostomy -: Prostatectomy Psychosocial/ Personal History: Patient is retired, lives alone - Family History Father -: Cancer Mother -: Cancer Brother -: Heart disease Sister -: Heart disease - Social History Smoking Status: Former smoker Alcohol use: No CD- Drugs: No Caffeine use: Yes Place of Residence: Home Review of Systems 10-point ROS is otherwise unremarkable Neurological: Weakness, Incoordination, Change in Speech, As per HPI Physical Examination - Physical Exam General: Alert, In no apparent distress, Oriented x3 HEENT: Atraumatic, Normocephalic, PERRLA, Mucous membr. moist/pink Neck: Supple Respiratory: Clear to auscultation bilaterally, Normal air movement Cardiovascular: No edema, Normal S1 S2 Capillary refill: <2 Seconds Gastrointestinal: Normal bowel sounds, Soft and benign, No masses, No rebound, No guarding Musculoskeletal: No erythema, No tenderness, No warmth Integumentary: No tenderness/swelling, No erythema, No warmth Neurological: Sensation intact, Other (Patient noted to have some right-sided dysmetria FX in the right upper and lower extremity, noted to have right-sided facial droop.), Abnormal speech (Speech is slurred) - Studies Laboratory Data (last 24 hrs) 06/02/20 17:49: PT 11.9, INR 1.03, APTT 25.1 06/02/20 17:49: WBC 7.00, Hgb 12.8 L, Hct 38.6 L, Plt Count 193 06/02/20 17:49: Sodium 142, Potassium 4.2, BUN 26 H, Creatinine 1.65 H, Glucose 123 H, Magnesium 1.8, Total Bilirubin 0.7, AST 23, ALT 20, Alkaline Phosphatase 96 Assessment and Plan - Plan Assessment Slurred speech, dysmetria, dizziness, multiple falls suspect CVA CAD Suspected underlying CKD 3 Hypertension History of bladder, prostate, colon cancer status post colostomy placement Plan Slurred speech, dysmetria, dizziness, multiple falls suspect CVA: Continue patient's aspirin, Plavix, statin therapy. Have López acid daily, MRI stroke protocol, carotid ultrasound, echocardiogram ordered. Neurology consulted continue with q.4h neuro checks. DVT prophylaxis Lovenox 40 mg subcutaneous once daily. Physical and speech therapy consult in place, patient did pass bedside swallow screen. Appreciate further input from neurology. CAD: Continue home medications including Plavix, statin, aspirin, monitor on telemetry. Patient chest pain free. Suspected underlying CKD 3: GFR stable from baseline dating back to 2014, continue with gentle hydration overnight, recheck with morning labs. Hypertension: Continue home medications as appropriate History of bladder, prostate, colon cancer status post colostomy placement: Stable at this time. Discharge Plan: Home Plan to discharge in: 48 Hours - Advance Directives Does patient have a Living Will: No Does patient have a Durable POA for Healthcare: No - Code Status/Comfort Care Code Status Assessed: Yes (Full code) Critical Care: No Time Spent Managing Pts Care (In Minutes): 55
[2020-06-02] MEDS ORDERED: ONDANSETRON 4 MG/2 ML VIAL IV PRN (21:45)
[2020-06-02] MEDS ORDERED: ACETAMINOPHEN 500 MG TAB PO PRN (21:45)
[2020-06-02 21:48] VITALS: BMI 28.5
[2020-06-02] MEDS: ATORVASTATIN 40 MG TAB PO SCH (22:05)
[2020-06-02] MEDS: NA CHLORIDE 0.9% 1,000 ML IV SCH (22:05)
[2020-06-03 04:12] LABS: Basophils % 1.1 % (0-1.3); Hematocrit 32.7 % (39.6-49.0); MPV 8.6 fL (7.6-11.3); RBC Red Blood Cell Count 3.34 M/uL (4.33-5.43)
[2020-06-03 04:13] LABS: Urine Appearance CLEAR (Clear); Urine Bilirubin NEGATIVE (Negative); Urine Blood NEGATIVE (Negative); Urine Color YELLOW (Yellow); Urine Glucose NEGATIVE (Negative); Urine Protein NEGATIVE (Negative); Urine Specific Gravity 1.015 (1.005-1.030); Urine Urobilinogen 0.2 mg/dL (0.2-1.0); Urine pH 5.5 (5.0-7.0)
[2020-06-03 04:13] LABS: Absolute Lymphocytes (CBC) 1.2 K/uL (0.7-4.9)
[2020-06-03 04:16] LABS: Urine Microscopic Reflex NO UMIC
[2020-06-03 04:41] LABS: Albumin 3.1 g/dL (3.4-5.0); Bilirubin Total 0.9 mg/dL (0.2-1.0); Magnesium 1.8 mg/dL (1.8-2.4); Potassium 3.9 mmol/L (3.5-5.1); Protein, Total 5.9 g/dL (6.4-8.2)
[2020-06-03 04:49] LABS: Thyroid Stimulating Hormone 19.8 uIU/mL (0.360-3.740)
[2020-06-03] MEDS ORDERED: MORPHINE 2 MG/ML SYR IV ONE (07:10)
[2020-06-03] MEDS ORDERED: MORPHINE 2 MG/ML SYR ONE (07:30)
--- NOTE | 2020-06-03 07:36 | EKG ---
Test Date: 2020-06-02 Test Time: 17:42:29 Rfp Writer: DARREN MEASUREMENT RESULTS: Intervals: Rate: 69 MS: 166 QRSD: 152 QT: 458 QTc: 490 [place]: P: 68 MS: 166 QRS: -76 T: 52 INTERPRETIVE STATEMENTS: Sinus rhythm with occasional premature ventricular complexes Right bundle branch block Left anterior fascicular block Bifascicular block Anterior infarct, age undetermined Abnormal ECG Compared to ECG 10/14/2002 08:41:00 Ventricular premature complex(es) now present Right bundle-branch block now present Left anterior fascicular block now present Bifascicular block now present Myocardial infarct finding now present Sinus bradycardia no longer present T-wave abnormality no longer present Electronically Signed On 06-03-20 07:35:05 CDT by Italo Valladares
--- NOTE | 2020-06-03 08:17 | RAD REPORT ---
EXAM DESCRIPTION: MRI - Brain Wo Cont - 06/03/2020 8:04 am CLINICAL HISTORY: Slurred speech COMPARISON: June [address] TECHNIQUE: Axial, sagittal, and coronal magnetic images of the brain were obtained. Contrast was not requested FINDINGS: Mild signal within periventricular, deep subcortical white matter likely ischemic changes secondary to small vessel disease Diffusion-weighted/ADC mapping demonstrates abnormal signal within the christ slightly to the left of m idline anteriorly measuring 4 millimeters. An additional area of abnormal signal is present within th e left lateral christ measuring 6 millimeters. These are compatible with acute infarcts. . The ventricles are normal caliber. An extra-axial fluid collection is not present Fluid within the sinuses/mastoids is not noted IMPRESSION: Acute pontine infarct
--- NOTE | 2020-06-03 08:19 | RAD REPORT ---
EXAM DESCRIPTION: MRI - MRA Head Wo Cont - 06/03/2020 8:04 am CLINICAL HISTORY: CVA COMPARISON: None. TECHNIQUE: Magnetic resonance angiogram was performed. 3D MIPS reconstruction performed FINDINGS: The anterior cerebral, middle cerebral, distal internal carotid and basilar arteries do no t demonstrate a significant stenosis. The right posterior cerebral artery appears normal. There is little signal within the left posterior cerebral artery. An aneurysm is not displayed. IMPRESSION: Diminished signal within the left posterior cerebral artery may be acute
--- NOTE | 2020-06-03 08:35 | RAD REPORT ---
EXAM DESCRIPTION: USCarotid Artery Bilateral06/03/2020 8:24 am CLINICAL HISTORY: CVA COMPARISON: None FINDINGS: The velocity of the right internal carotid artery equals 77 cm/sec. The right ICA/CCA rati o 1.4 The velocity of the left internal carotid artery equals 74 cm/sec. The left ICA/CCA ratio 1.1 Mild plaque is present within the carotid arteries. The vertebral arteries demonstrate antegrade flow IMPRESSION: Mild plaque within the carotid arteries without evidence of a hemodynamically significan t stenosis NASCET criteria used. Mild 0-49% stenosis Moderate 50-69% stenosis Severe 70-99% stenosis
[2020-06-03] MEDS: ENOXAPARIN 40 MG/0.4 ML SQ SCH (09:00)
[2020-06-03] MEDS ORDERED: POTASSIUM 25 MEQ EFFERV TAB PO ONE (09:00)
[2020-06-03] MEDS: ASPIRIN EC 81 MG TAB PO SCH (09:58)
[2020-06-03] MEDS: FOLIC ACID 1 MG TABLET PO SCH (09:58)
[2020-06-03] MEDS: FERROUS SULFATE 325 MG TAB PO SCH (09:58)
[2020-06-03] MEDS ORDERED: MAGNESIUM SULFATE 1 gm IVPB 1 GM/100 ML BAG IV ONE (10:00)
[2020-06-03] MEDS: CLOPIDOGREL 75 MG TABLET PO SCH (10:00)
[2020-06-03] MEDS: NEBIVOLOL HCL 5 MG TAB PO SCH (10:01)
[2020-06-03] MEDS: NA CHLORIDE 0.9% 1,000 ML IV SCH ×2 (11:05→12:23)
--- NOTE | 2020-06-03 12:46 | P.PN ---
Subjective Date of Service: 06/03/20 Primary Care Provider: Dr. Tijerina Chief Complaint: Slurred speech , ataxia Subjective: Other (Patient doing better. Still with slurred speech but able to pronounce better) Physical Examination - Vital Signs Temperature: 97.3 F Blood Pressure: 169/94 Pulse: 66 Respirations: 18 Pulse Ox (%): 99 - Studies Laboratory Data (last 24 hrs) 06/02/20 17:49: PT 11.9, INR 1.03, APTT 25.1 06/02/20 17:49: WBC 7.00, Hgb 12.8 L, Hct 38.6 L, Plt Count 193 06/02/20 17:49: Sodium 142, Potassium 4.2, BUN 26 H, Creatinine 1.65 H, Glucose 123 H, Magnesium 1.8, Total Bilirubin 0.7, AST 23, ALT 20, Alkaline Phosphatase 96 Assessment & Plan Discharge Plan: Other (Inpatient rehab) Plan to discharge in: 24 Hours Physician Review Additional Text: Physical exam: Patient alert, cooperative. No significant distress. Still with slurred speech. Heart: Regular rate and rhythm Lungs: Clear to auscultation Abdomen: Soft nontender nondistended colostomy in placed Extremities: Good range of motion. 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 MRI reviewed. Continue aspirin, Plavix, Lipitor and DVT prophylaxis. Await further recommendations from neurology. Speech, occupational and physical therapy to evaluate and assess. Patient would benefit with inpatient rehab. We will put in consult. Spoke with patient and family at length. Apparently patient lives at home by himself. Inpatient rehab would help facilitate his rehab prior to going back home or to long-term care. We will allow for permissive hypertension. Medications adjusted. Continue to monitor closely. Await further recommendations from team. Anticipate possible discharge to inpatient rehab as early as tomorrow. Advance care [id number] minutes. CAD: Continue aspirin, Plavix and DVT prophylaxis. Hypertension: Continue home medication. Will allow for permissive hypertension at this time. Chronic kidney disease stage III: We will check renal ultrasound. Will consult nephrology for further recommendation. History of bladder, prostate, colon cancer status post colostomy placement: Continue colostomy care. Abnormal thyroid dysfunction: Recheck thyroid levels again tomorrow. Anemia of chronic disease: We will check iron and B12 studies. Hyperlipidemia: Continue medication Time Spent Managing Pts Care (In Minutes): 55
--- NOTE | 2020-06-03 13:28 | ECHO ---
HEIGHT: 6 ft 3 in WEIGHT: 228 lb 0 oz DATE OF STUDY: 06/03/[address]: Narinder Jasso NP 2-DIMENSIONAL: YES M.MODE: YES DOPPLER: YES COLOR FLOW: YES TDS: NO PORTABLE: NO DEFINITY: NO BUBBLE STUDY: NO DIAGNOSIS: CEREBRAL VASCULAR ACCIDENT CARDIAC HISTORY: CATHERIZATION: NO SURGERY: NO PROSTHETIC VALVE: NO PACEMAKER: NO MEASUREMENTS (cm) DIASTOLIC (NORMALS) SYSTOLIC (NORMALS) IVSd 1.0 (0.6-1.2) LA Diam 2.7 (1.9-4.0) LVEF 63% LVIDd 4.4 (3.5-5.7) LVIDs 2.9 (2.0-3.5) %FS 34% LVPWd 1.2 (0.6-1.2) Ao Diam 3.2 (2.0-3.7) 2 DIMENSIONAL ASSESSMENT: RIGHT ATRIUM: NORMAL LEFT ATRIUM: NORMAL RIGHT VENTRICLE: NORMAL LEFT VENTRICLE: NORMAL TRICUSPID VALVE: NORMAL MITRAL VALVE: NORMAL PULMONIC VALVE: NORMAL AORTIC VALVE: NORMAL PERICARDIAL EFFUSION: NONE AORTIC ROOT: NORMAL LEFT VENTRICULAR WALL MOTION: NORMAL DOPPLER/COLOR FLOW: NORMAL COMMENTS: NORMAL 2D ECHOCARDIOGRAM WITH DOPPLER. NO VEGETATION. NO THROMBUS. TECHNOLOGIST: Jericho LOMAX
[2020-06-03 16:51] VITALS: O2SAT 98
--- NOTE | 2020-06-03 17:26 | RAD REPORT ---
EXAM DESCRIPTION: US - Renal Ultrasound-Complete - 06/03/2020 5:08 pm CLINICAL HISTORY: Suspect Chronic renal disease Flank pain COMPARISON: No comparisons FINDINGS: Both kidneys are normal in size, shape and echotexture. The right kidney measures 8.5 x 4.4 x 3.1 cm. No hydronephrosis, focal mass or perinephric fluid. The left kidney measures 8.7 x 4.0 x 3.5 cm. No hydronephrosis, focal mass or perinephric fluid. The urinary bladder is incompletely distended without gross abnormality seen. IMPRESSION: Unremarkable renal sonogram.
[2020-06-03] MEDS: ATORVASTATIN 40 MG TAB PO SCH (20:36)
--- NOTE | 2020-06-03 21:37 | P.CNS ---
Date of Consult: 06/03/20 Reason for Consult: PANKAJ/ CKD Requesting Physician: Homer Arvizu Primary Care Provider: Dr. Tijerina Chief Complaint: Slurred speech , ataxia History of Present Illness: 89-year-old male with history of hypertension, CAD, bladder, prostate, colon cancer presents emergency department for multiple falls, slurred speech. Patient reports that symptoms began on 06/01/2020 at approximately noon, patient reports a full resulting from the feeling of dizziness/instability, patient reports that he has had slurred speech since his fall, reports multiple falls throughout the course of the day yesterday primarily to the right side. Patient was brought in by his son to the emergency department for evaluation, during his stay in the emergency department patient noted to have right-sided facial droop, slurred speech and right-sided dysmetria on exam, CT head without contrast negative for any acute findings, CT chest abdomen pelvis without contrast demonstrates no acute traumatic findings but did note a 3.9 cm abdominal aortic aneurysm. No comparison is available. Lab significant for creatinine 1.65 GFR 40 BUN 26 patient GFR appears to be stable from labs dating back to 2014. ED provider wishes to admit patient for further evaluation of possible CVA. Denies NSAIDs. Denies difficulty with urination. 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 Stent X5. 18:28 This 89 yrs old Male presents to ER via Wheelchair with complaints of [email or web address] 18:28 The patient's problem is reported as difficulty walking, falling to right. Onset: The jr8 symptoms/episode began/occurred acutely, yesterday. Duration: This was a single incident. Context: symptoms became apparent on June 01, 2020, occurred at home, occurred while the patient was at rest. The symptoms are alleviated by rest, The symptoms are aggravated by walking. Severity of symptoms: At their worst the symptoms were moderate in the emergency department the symptoms are unchanged. Patient's baseline: Neuro: alert and fully oriented, Motor: no deficits, Ambulation: walks without assistance, Speech: normal. The patient has not experienced similar symptoms in the past. The patient has not recently seen a physician. 18:39 Patient stated that he noticed himself feeling off balance yesterday. Falling to right jr8 side and actually fell and hit the ground 4 times yesterday. Called family this morning to help him after it did not go away. Allergies No Known Allergies Allergy (Unverified 06/02/20 21:43) Home medications list reviewed: Yes Home Medications: Aspirin 81 mg PO DAILY 06/02/20 Atorvastatin Calcium 10 mg PO DAILY 06/02/20 Clopidogrel Bisulfate [Plavix] 75 mg PO DAILY 06/02/20 Ferrous Sulfate [Iron] 325 mg PO DAILY 06/02/20 Losartan Potassium [Cozaar] 100 mg PO DAILY 06/02/20 Nebivolol HCl [Bystolic] 10 mg PO DAILY 06/02/20 - Past Medical/Surgical History Diabetic: Yes -: CAD -: Hypertension -: Bladder, prostate, colon cancer,colostomy ,hx of prostectomy -: Colostomy -: Prostatectomy Psychosocial/ Personal History: Patient is retired, lives alone - Family History Father Medical History: Cancer Mother Medical History: Cancer Brother Medical History: Heart disease Sister Medical History: Heart disease - Social History Alcohol use: No CD- Drugs: No Caffeine use: Yes Place of Residence: Home Review of Systems 10-point ROS is otherwise unremarkable Cardiovascular: Edema Neurological: Weakness, Change in Speech Physical Examination Temp Pulse Resp BP Pulse Ox 98.8 F 118 H 18 126/69 93 06/03/20 20:00 06/03/20 20:00 06/03/20 20:00 06/03/20 20:00 06/03/20 20:00 General: In no apparent distress, Oriented x3, Cooperative HEENT: Atraumatic Neck: Supple Respiratory: Clear to auscultation bilaterally Cardiovascular: Regular rate/rhythm, Edema Gastrointestinal: Soft and benign, Non-distended, No guarding, Other (Colostomy) Musculoskeletal: No clubbing, No contractures Integumentary: No rashes, No cyanosis Neurological: Abnormal speech Blood work reviewed in the chart. Imagings Data: EXAM DESCRIPTION: US - Renal Ultrasound-Complete - 06/03/2020 5:08 pm CLINICAL HISTORY: Suspect Chronic renal disease Flank pain COMPARISON: No comparisons FINDINGS: Both kidneys are normal in size, shape and echotexture. The right kidney measures 8.5 x 4.4 x 3.1 cm. No hydronephrosis, focal mass or perinephric fluid. The left kidney measures 8.7 x 4.0 x 3.5 cm. No hydronephrosis, focal mass or perinephric fluid. The urinary bladder is incompletely distended without gross abnormality seen. IMPRESSION: Unremarkable renal sonogram. EXAM DESCRIPTION: Davidt Single View06/02/2020 5:59 pm CLINICAL HISTORY: Colon cancer COMPARISON: none FINDINGS: The lungs appear clear of acute infiltrate. The heart is mildly enlarged IMPRESSION: No acute abnormalities displayed EXAM DESCRIPTION: CT - Chest Abd Pelvis Wo Con - 06/02/2020 5:34 pm CLINICAL HISTORY: Fall with chest and abdominal pain COMPARISON: none TECHNIQUE: Computed axial tomography of the chest, abdomen and pelvis was obtained. Oral contrast was not given. IV contrast was not requested. All CT scans are performed using dose optimization technique as appropriate and may include automated exposure control or mA/KV adjustment according to patient size. Computed axial tomography of the chest obtained. Oral contrast was not given. IV contrast was not requested. FINDINGS: The evaluation of mediastinum, haley, vessels, bowel and solid organs is limited secondary to the lack of IV contrast administration A lung contusion is not present. A pleural effusion is not present. A pericardial effusion is not seen. Coronary arterial calcifications. A moderate hiatal hernia A mediastinal hematoma is not seen. The liver, spleen, pancreas, adrenals, kidneys and bladder do not demonstrate a traumatic injury. Left lower quadrant colostomy. Peristomal hernia. Infrarenal abdominal aortic aneurysm with an AP diameter of 3.9 centimeters IMPRESSION: No traumatic injury involving the chest, abdomen or pelvis is seen 3.9 centimeter abdominal aortic aneurysm NORMAL 2D ECHOCARDIOGRAM WITH DOPPLER. NO VEGETATION. NO THROMBUS. Conclusions/Impression: A/P: Continue the current POC and Medications other than the changes listed. AM Labs PRN. Recommend daily weight. Please see the orders for complete details. PANKAJ likely due to hypovolemia CKD III -No NSAIDs -Encourage nutrition and hydration Hypokalemia -Replete potassium Hypocalcemia -Start Vitamin D HTN with CKD -Continue Losartan and Bystolic LE Edema -Low sodium diet DM II with CKD -Check A1C Anemia in chronic illness -Continue oral iron Thank you kindly for the consultation.
[2020-06-04 03:56] LABS: Basophils % 0.9 % (0-1.3); Hematocrit 35.1 % (39.6-49.0); Lymphocytes % 16.2 % (15.3-44.8); MPV 8.6 fL (7.6-11.3); RBC Red Blood Cell Count 3.61 M/uL (4.33-5.43)
[2020-06-04 05:06] LABS: Ferritin 416.2 ng/mL (26-388); Magnesium 1.9 mg/dL (1.8-2.4); Potassium 3.8 mmol/L (3.5-5.1); T3 Free 2.03 pg/mL (2.18-3.98); T4,Total 7.2 ug/dL (4.5-12.1); Uric Acid 8.4 mg/dL (3.5-7.2)
[2020-06-04 05:29] LABS: Thyroid Stimulating Hormone 18.1 uIU/mL (0.360-3.740)
[2020-06-04] MEDS ORDERED: POTASSIUM 25 MEQ EFFERV TAB PO ONE ×2 (08:00)
[2020-06-04] MEDS: FERROUS SULFATE 325 MG TAB PO SCH (08:26)
[2020-06-04] MEDS: CLOPIDOGREL 75 MG TABLET PO SCH (08:26)
[2020-06-04] MEDS: FOLIC ACID 1 MG TABLET PO SCH (08:26)
[2020-06-04] MEDS: ASPIRIN EC 81 MG TAB PO SCH (08:26)
[2020-06-04] MEDS: ENOXAPARIN 40 MG/0.4 ML SQ SCH (08:28)
[2020-06-04] MEDS: NEBIVOLOL HCL 5 MG TAB PO SCH (08:31)
[2020-06-04] MEDS ORDERED: THIAMINE HCL 100 MG TABLET PO SCH (09:00)
[2020-06-04] MEDS ORDERED: LOSARTAN POTASSIUM 50 MG TABLET PO SCH (09:00)
--- NOTE | 2020-06-04 09:40 | RAD REPORT ---
EXAM DESCRIPTION: CT - Head Brain Wo Cont - 06/04/2020 9:21 am CLINICAL HISTORY: Acute pontine CVA, Report more R side weakness COMPARISON: Ct Stroke Brain Wo Cont dated 06/02/2020; Brain Wo Cont dated 06/03/2020 TECHNIQUE: All CT scans are performed using dose optimization technique as appropriate and may inclu de automated exposure control or mA/KV adjustment according to patient size. FINDINGS: No intracranial hemorrhage, hydrocephalus or extra-axial fluid collection.Mild generalized brain atrophy is present with mild periventricular and deep white matter chronic microvascular ische georges changes.No areas of brain edema or evidence of midline shift. Vertebral arteries are calcified. The paranasal sinuses and mastoids are clear. The calvarium is intact. IMPRESSION: No acute intracranial abnormality.
--- NOTE | 2020-06-04 13:58 | P.DS ---
Admission Date: 06/02/20 Discharge Date: 06/04/20 Primary Care Provider: Dr. Tijerina Disposition: TRANSFER TO INPATIENT REHAB Discharge Condition: GOOD Reason for Admission: Slurred speech , ataxia Consultations: Neurology-Dr. Morgan Nephrology-Dr. Byrd Procedures: COVID: Negative CT scan: FINDINGS: An intracranial bleed is not seen . The ventricles are normal in caliber. No extra-axial fluid collection is noted. Mild low-density within periventricular, deep and subcortical white matter likely ischemic changes secondary to small vessel disease Fluid within the sinuses/ mastoids is not seen. IMPRESSION: No acute intracranial abnormality is seen CT C spine: FINDINGS: No acute cervical fracture seen. Bony/calcific density near the tip of the dens appears chronic. No dislocation. Spondylosis involves the cervical spine. IMPRESSION: No acute cervical fracture seen . CT chest/abdomen: FINDINGS: The evaluation of mediastinum, haley, vessels, bowel and solid organs is limited secondary to the lack of IV contrast administration A lung contusion is not present. A pleural effusion is not present. A pericardial effusion is not seen. Coronary arterial calcifications. A moderate hiatal hernia A mediastinal hematoma is not seen. The liver, spleen, pancreas, adrenals, kidneys and bladder do not demonstrate a traumatic injury. Left lower quadrant colostomy. Peristomal hernia. Infrarenal abdominal aortic aneurysm with an AP diameter of 3.9 centimeters IMPRESSION: No traumatic injury involving the chest, abdomen or pelvis is seen 3.9 centimeter abdominal aortic aneurysm MRI Brain: FINDINGS: Mild signal within periventricular, deep subcortical white matter likely ischemic changes secondary to small vessel disease Diffusion-weighted/ADC mapping demonstrates abnormal signal within the christ slightly to the left of midline anteriorly measuring 4 millimeters. An additional area of abnormal signal is present within the left lateral christ measuring 6 millimeters. These are compatible with acute infarcts. . The ventricles are normal caliber. An extra-axial fluid collection is not present Fluid within the sinuses/mastoids is not noted IMPRESSION: Acute pontine infarct MRA Brain: FINDINGS: The anterior cerebral, middle cerebral, distal internal carotid and basilar arteries do not demonstrate a significant stenosis. The right posterior cerebral artery appears normal. There is little signal within the left posterior cerebral artery. An aneurysm is not displayed. IMPRESSION: Diminished signal within the left posterior cerebral artery may be acute Carotid doppler: ECHO: MEASUREMENTS (cm) DIASTOLIC (NORMALS) SYSTOLIC (NORMALS) IVSd 1.0 (0.6-1.2) LA Diam 2.7 (1.9-4.0) LVEF 63% LVIDd 4.4 (3.5-5.7) LVIDs 2.9 (2.0-3.5) %FS 34% LVPWd 1.2 (0.6-1.2) Ao Diam 3.2 (2.0-3.7) 2 DIMENSIONAL ASSESSMENT: RIGHT ATRIUM: NORMAL LEFT ATRIUM: NORMAL RIGHT VENTRICLE: NORMAL LEFT VENTRICLE: NORMAL TRICUSPID VALVE: NORMAL MITRAL VALVE: NORMAL PULMONIC VALVE: NORMAL AORTIC VALVE: NORMAL PERICARDIAL EFFUSION: NONE AORTIC ROOT: NORMAL LEFT VENTRICULAR WALL MOTION: NORMAL DOPPLER/COLOR FLOW: NORMAL COMMENTS: NORMAL 2D ECHOCARDIOGRAM WITH DOPPLER. NO VEGETATION. NO THROMBUS. Renal US: FINDINGS: Both kidneys are normal in size, shape and echotexture. The right kidney measures 8.5 x 4.4 x 3.1 cm. No hydronephrosis, focal mass or perinephric fluid. The left kidney measures 8.7 x 4.0 x 3.5 cm. No hydronephrosis, focal mass or perinephric fluid. The urinary bladder is incompletely distended without gross abnormality seen. IMPRESSION: Unremarkable renal sonogram. Follow up CT scan: FINDINGS: No intracranial hemorrhage, hydrocephalus or extra-axial fluid collection.Mild generalized brain atrophy is present with mild periventricular and deep white matter chronic microvascular ischemic changes.No areas of brain edema or evidence of midline shift. Vertebral arteries are calcified. The paranasal sinuses and mastoids are clear. The calvarium is intact. IMPRESSION: No acute intracranial abnormality. 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 Patient reports that symptoms began on 06/01/2020 at approximately noon, patient reports a full resulting from the feeling of dizziness/instability, patient reports that he has had slurred speech since his fall, reports multiple falls throughout the course of the day yesterday primarily to the right side. Patient was brought in by his son to the emergency department for evaluation, during his stay in the emergency department patient noted to have right-sided facial droop, slurred speech and right-sided dysmetria on exam, CT head without contrast negative for any acute findings, CT chest abdomen pelvis without contrast demonstrates no acute traumatic findings but did note a 3.9 cm abdominal aortic aneurysm. No comparison is available. Lab significant for creatinine 1.65 GFR 40 BUN 26 patient GFR appears to be stable from labs dating back to 2014. Patient admitted for further evaluation and treatment. 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 Patient was seen and evaluated in the emergency room. Patient admitted for further evaluation and treatment. Patient was seen by neurology. Physical therapy, occupational therapy and speech therapy evaluated patient. All recommended that the patient would benefit with inpatient rehab. Patient agreed. Patient has been accepted to inpatient rehab. Patient will continue with therapy there. Prior to discharge repeat CT scan was performed due to increasing right-sided weakness. No evidence of hemorrhagic conversion. At discharge patient will continue with aspirin 81 mg daily, Plavix 25 mg daily, increase Lipitor to 40 mg daily, folic acid 1 mg daily, vitamin B12 1000 mg daily, and thiamine 100 mg daily. Patient with history of CAD and hypertension. Permissive hypertension was monitored. At discharge losartan was decreased to 50 mg daily. Patient will continue with losartan 50 mg daily along with Bystolic 10 mg daily. Recommend to maintain blood pressure less than 140/90. Permissive blood pressure over the next 3 days around 1 40-1 60 will be monitored. After 1 week blood pressure medication can be adjusted for better control. This can be done by inpatient rehab. Patient with suspected chronic renal disease stage III. She was seen and evaluated by nephrology. This improved with hydration. This can be monitored closely as an outpatient. Recommend follow-up with nephrology as directed. Patient with history of bladder, prostate and colon cancer. Patient with colostomy in place. Patient will continue with current colostomy care. Patient with hyperlipidemia as mentioned above Lipitor will be increased to 40 mg daily. Patient with anemia of chronic disease. Patient may continue with iron supplementation daily. B12 level was low indicating B12 deficiency. At discharge patient will continue with B12 supplementation daily. Recommend to recheck CBC and B12 in 1 month to monitor his progress. Patient was found to have 3.9 cm abdominal aortic aneurysm. This can be monitored closely as an outpatient. Recommend recheck ultrasound in 6 to 12 months to monitor this closely. Patient had abnormal TSH with normal free T4. Etiology unknown. Patient would benefit with endocrinology evaluation as an outpatient to further address. Recommend to recheck TSH and free T4 in 2 to 4 weeks to recheck. Vital Signs/Physical Exam: Temp Pulse Resp BP Pulse Ox 97.7 F 64 17 139/67 99 06/04/20 12:00 06/04/20 12:00 06/04/20 12:00 06/04/20 12:00 06/04/20 12:00 General: Alert, In no apparent distress, Oriented x3, Cooperative, Other (Slurred speech ) HEENT: Atraumatic, Other (Right facial droop) Neck: Supple Respiratory: Clear to auscultation bilaterally, Normal air movement Cardiovascular: Normal pulses, Regular rate/rhythm Gastrointestinal: Normal bowel sounds, Soft and benign, Non-distended Musculoskeletal: No warmth Neurological: Normal speech, Normal tone, Normal affect, Abnormal strength (Decreased strength to the right lower extremity especially to the lower) Laboratory Data at Discharge: WBC 6.00 K/uL (4.3-10.9) D 06/04/20 03:06 Hgb 11.9 g/dL (13.6-17.9) L 06/04/20 03:06 Hct 35.1 % (39.6-49.0) L 06/04/20 03:06 Plt Count 182 K/uL (152-406) 06/04/20 03:06 PT 11.9 SECONDS (9.5-12.5) 06/02/20 17:49 INR 1.03 06/02/20 17:49 APTT 25.1 SECONDS (24.3-36.9) 06/02/20 17:49 Sodium 141 mmol/L (136-145) 06/04/20 03:06 Potassium 3.8 mmol/L (3.5-5.1) 06/04/20 03:06 BUN 24 mg/dL (7-18) H 06/04/20 03:06 Creatinine 1.32 mg/dL (0.55-1.3) H 06/04/20 03:06 Glucose 129 mg/dL (74-106) H 06/04/20 03:06 Uric Acid 8.4 mg/dL (3.5-7.2) H 06/04/20 03:06 Phosphorus 2.0 mg/dL (2.5-4.9) L 06/04/20 03:06 Magnesium 1.9 mg/dL (1.8-2.4) 06/04/20 03:06 Total Bilirubin 0.9 mg/dL (0.2-1.0) 06/03/20 03:28 AST 20 U/L (15-37) 06/03/20 03:28 ALT 16 U/L (12-78) 06/03/20 03:28 Alkaline Phosphatase 81 U/L (45-117) 06/03/20 03:28 Triglycerides 118 mg/dL (<150) 06/03/20 03:28 Cholesterol 114 mg/dL (<200) 06/03/20 03:28 HDL Cholesterol 31 mg/dL (40-60) L 06/03/20 03:28 Cholesterol/HDL Ratio 3.68 06/03/20 03:28 Home Medications: Aspirin 81 mg PO DAILY 06/02/20 Clopidogrel Bisulfate [Plavix] 75 mg PO DAILY 06/02/20 Ferrous Sulfate [Iron] 325 mg PO DAILY 06/02/20 Nebivolol HCl [Bystolic] 10 mg PO DAILY 06/02/20 Atorvastatin Calcium [Lipitor] 40 mg PO DAILY #30 tablet 06/04/20 Cyanocobalamin (Vitamin B-12) [Vitamin B-12] 1,000 mcg PO DAILY #90 capsule 06/04/20 Losartan Potassium [Cozaar*] 50 mg PO DAILY #30 tablet 06/04/20 Thiamine HCl 100 mg PO DAILY #90 tablet 06/04/20 New Medications: Losartan Potassium [Cozaar*] 50 mg PO DAILY #30 tablet Atorvastatin Calcium [Lipitor] 40 mg PO DAILY #30 tablet Thiamine HCl 100 mg PO DAILY #90 tablet Cyanocobalamin (Vitamin B-12) [Vitamin B-12] 1,000 mcg PO DAILY #90 capsule Physician Discharge Instructions: Patient presented with slurred speech, right-sided dysmetria/weakness, ataxia, and multiple falls secondary to 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 Patient was seen and evaluated in the emergency room. Patient admitted for further evaluation and treatment. Patient was seen by neurology. Physical therapy, occupational therapy and speech therapy evaluated patient. All recommended that the patient would benefit with inpatient rehab. Patient agreed. Patient has been accepted to inpatient rehab. Patient will continue with therapy there. Prior to discharge repeat CT scan was performed due to increasing right-sided weakness. No e vidence of hemorrhagic conversion. At discharge patient will continue with aspirin 81 mg daily, Plavix 25 mg daily, increase Lipitor to 40 mg daily, folic acid 1 mg daily, vitamin B12 1000 mg daily, and thiamine 100 mg daily. Patient with history of CAD and hypertension. Permissive hypertension was monitored. At discharge losartan was decreased to 50 mg daily. Patient will continue with losartan 50 mg daily along with Bystolic 10 mg daily. Recommend to maintain blood pressure less than 140/90. Permissive blood pressure over the next 3 days around 1 40-1 60 will be monitored. After 1 week blood pressure medication can be adjusted for better control. This can be done by inpatient rehab. Patient with suspected chronic renal disease stage III. She was seen and evaluated by nephrology. This improved with hydration. This can be monitored closely as an outpatient. Recommend follow-up with nephrology as directed. Patient with history of bladder, prostate and colon cancer. Patient with colostomy in place. Patient will continue with current colostomy care. Patient with hyperlipidemia as mentioned above Lipitor will be increased to 40 mg daily. Patient with anemia of chronic disease. Patient may continue with iron supplementation daily. B12 level was low indicating B12 deficiency. At discharge patient will continue with B12 supplementation daily. Recommend to recheck CBC and B12 in 1 month to monitor his progress. Patient was found to have 3.9 cm abdominal aortic aneurysm. This can be monitored closely as an outpatient. Recommend recheck ultrasound in 6 to 12 months to monitor this closely. Patient had abnormal TSH with normal free T4. Etiology unknown. Patient would benefit with endocrinology evaluation as an outpatient to further address. Rec ommend to recheck TSH and free T4 in 2 to 4 weeks to recheck. Diet: AHA Activity: Ad elsi Followup: DAVID HERNANDEZ [Primary Care Provider] - Time spent managing pt's care (in minutes): 55
[2020-06-04] MEDS ORDERED: LIDOCAINE 4% PATCH TOP SCH (15:00)
--- NOTE | 2020-06-04 15:50 | RAD REPORT ---
EXAM DESCRIPTION: RAD - Lumbar Spine 3 Views - 06/04/2020 3:01 pm CLINICAL HISTORY: r/o fracture, fall, back pain COMPARISON: No comparisons FINDINGS: A three-view lumbar spine examination was performed. Lumbar bodies are normal in height. No subluxation abnormalities. There is accentuated lumbar lordosi s. No fracture or acute bony process seen. L5-S1 disc space narrowing is present. This can occur as a normal variant or indicate disc disease. Patient has mid and lower lumbar facet joint degenerative c hange. No pars defects identified. Dense aortoiliac calcifications are present. There does appear to be some aneurysmal dilatation of th e aorta. This does not appear to be severe. Measurement accuracy is limited on plain film. IMPRESSION: Lumbar spine degenerative changes are present primarily in the facet joints. No acute fi ndings noted. Aneurysmal dilatation of the aorta. This does not appear to be severe but can be correlated with dedi cated aorta ultrasound or CT imaging as warranted.
[2020-06-04 16:39] VITALS: BP 150/65; TEMP 97
--- NOTE | 2020-06-04 21:02 | P.PN ---
Date of Service: 06/04/20 Vital Signs Temp Pulse Resp BP Pulse Ox 97 F 66 20 150/65 H 98 06/04/20 16:00 06/04/20 16:00 06/04/20 16:00 06/04/20 16:00 06/04/20 16:00 Assessment/ Plan: Nephrology No acute cardiac or pulmonary complaints. No CP or SOB. Reports weakness of his RLE this morning. No acute events overnight. Vitals, medications, blood work and imaging reviewed in the chart. General: In no apparent distress, Oriented x3, Cooperative HEENT: Atraumatic Neck: Supple Respiratory: Clear to auscultation bilaterally Cardiovascular: Regular rate/rhythm, Edema Gastrointestinal: Soft and benign, Non-distended, No guarding, Other (Colostomy) Musculoskeletal: No clubbing, No contractures Integumentary: No rashes, No cyanosis Neurological: Abnormal speech Blood work reviewed in the chart. Imagings Data: EXAM DESCRIPTION: US - Renal Ultrasound-Complete - 06/03/2020 5:08 pm CLINICAL HISTORY: Suspect Chronic renal disease Flank pain COMPARISON: No comparisons FINDINGS: Both kidneys are normal in size, shape and echotexture. The right kidney measures 8.5 x 4.4 x 3.1 cm. No hydronephrosis, focal mass or perinephric fluid. The left kidney measures 8.7 x 4.0 x 3.5 cm. No hydronephrosis, focal mass or perinephric fluid. The urinary bladder is incompletely distended without gross abnormality seen. IMPRESSION: Unremarkable renal sonogram. EXAM DESCRIPTION: [facility] Single View06/02/2020 5:59 pm CLINICAL HISTORY: Colon cancer COMPARISON: none FINDINGS: The lungs appear clear of acute infiltrate. The heart is mildly enlarged IMPRESSION: No acute abnormalities displayed EXAM DESCRIPTION: CT - Chest Abd Pelvis Wo Con - 06/02/2020 5:34 pm CLINICAL HISTORY: Fall with chest and abdominal pain COMPARISON: none TECHNIQUE: Computed axial tomography of the chest, abdomen and pelvis was obtained. Oral contrast was not given. IV contrast was not requested. All CT scans are performed using dose optimization technique as appropriate and may include automated exposure control or mA/KV adjustment according to patient size. Computed axial tomography of the chest obtained. Oral contrast was not given. IV contrast was not requested. FINDINGS: The evaluation of mediastinum, haley, vessels, bowel and solid organs is limited secondary to the lack of IV contrast administration A lung contusion is not present. A pleural effusion is not present. A pericardial effusion is not seen. Coronary arterial calcifications. A moderate hiatal hernia A mediastinal hematoma is not seen. The liver, spleen, pancreas, adrenals, kidneys and bladder do not demonstrate a traumatic injury. Left lower quadrant colostomy. Peristomal hernia. Infrarenal abdominal aortic aneurysm with an AP diameter of 3.9 centimeters IMPRESSION: No traumatic injury involving the chest, abdomen or pelvis is seen 3.9 centimeter abdominal aortic aneurysm NORMAL 2D ECHOCARDIOGRAM WITH DOPPLER. NO VEGETATION. NO THROMBUS. Conclusions/Impression: A/P: Continue the current POC and Medications other than the changes listed. AM Labs PRN. Recommend daily weight. Please see the orders for complete details. PANKAJ likely due to hypovolemia CKD III -No NSAIDs -Encourage nutrition and hydration Hypokalemia -Replete potassium prn Hypocalcemia -Continue Vitamin D HTN with CKD -Continue Losartan and Bystolic LE Edema -Low sodium diet DM II with CKD -No sugar/ low carb diet Anemia in chronic illness -Continue oral iron Case discussed with Dr. Arvizu
--- NOTE | 2020-06-05 19:32 | CON ---
Reason For Consultation: Consultation called because of stroke. History Of Present Illness: Mr. Mitchell is an 89-year-old right-handed patient with hyperten orlin, coronary artery disease, prior stroke, prostate cancer, and colostomy with colectomy, who comes to [facility] by his son with symptoms of dizziness, debility, slurred speech, and right-si ded weakness. At [facility] after actually he had fallen, there was a head CT and cervical spine CT scan along with abdomen and pelvis CT scan showing no acute ischemic or hemorrhagic changes in the brain. There were no cervical fractures identified. His abdomen and pelvis CT scan showed no traumatic involvement in terms of the abdomen and pelvis. There was a 3.9 cm abdominal aortic aneur ysm. The following date, 03 of June, his brain MRI identified 2 acute strokes in the christ, 1 slig htly to the left of the midline measuring 4 mm and an additional stroke in the left lateral christ bradley uring 6 mm, and these were consistent with the patient's right-sided weakness. He has had a carotid artery ultrasound, which identified mild plaque in the carotid arteries without evidence of hemodynam ically significant stenosis. In addition, he had magnetic resonance angiogram of his neck, that stud y was remarkable for left posterior cerebral artery having diminished signal, which is compatible wit h possible acute stroke of that vessel. His symptoms fluctuated over the next couple of days and he had [address] scans, showed no hemorrhagic conversion of his pontine stroke. The additional s tudies included a renal ultrasound, which was unremarkable and his echocardiogram, which showed a nor mal study without vegetation or thrombus, ejection fraction 63%. [facility] and determined to be a good candidate for acute inpatient rehabilitation. He did require moderate assistance for his transfers to chair and to perform many with activities of hannah ly living. In addition, when walking, he had right-sided circumduction with unsteady gait and is the refore discharged from the main hospital to be admitted to the acute inpatient rehabilitation unit fo r physical and occupational therapy along with speech therapy. He was treated for his stroke with aspirin 81 mg daily, Plavix 75 mg daily, Lipitor 40 mg at bedtime, folic acid 1 mg daily, and his hypertensive medications were continued with some permissive hyperten orlin. Past Medical History: As indicated in addition to colostomy, prostatectomy for surgery. Family History: Father and mother with cancer. Brother with heart disease. Sister also with heart disease. Social History: No alcohol use, but smoked tobacco0 cigarettes in the past. Drinks caffeinated beve rages. Review of Systems: Other than mentioned, no recent fevers or chills, nausea or vomiting. No myalgias, arthralgias, rash , weight change, or other issues. Physical Examination: Vital Signs: Blood pressure 169/78, pulse 63, respiratory rate 18, temperature 98.5, oxygen saturati on 98%. General: Mr. Mitchell is sitting in a chair beside the bed. He is in no acute distress. HEENT: He is normocephalic, atraumatic. His sclerae are anicteric. Oropharynx is moist and pink. Neck: Supple. Chest: Clear. Heart: Regular. Extremities: No significant edema or cyanosis. Neurological: He is alert and oriented to situation, place, and person. He does have difficulty wit h labial, lingual, and guttural sounds with poor speech. Right nasolabial fold is decreased. His cr anial nerves otherwise show slight decreased sensation on the right compared to left. Motor examinat ion, he has 4/5 strength in right upper and lower extremity compared to the left side and sensation i s decreased on the right compared to left upper lower extremity. Coordination is slow, but intact in upper and lower extremities. Gait is right leg circumduction. Laboratory Studies: Complete blood count with differential shows slightly low hemoglobin of 11.9, wh ite blood cell count normal at 6.0. INR 1.03. Chemistries show elevated creatinine of 1.32. His ir on, total iron binding capacity, transferrin, and percent transferrin saturation are all low. Ferrit in is elevated to 116. His LDL cholesterol 59, HDL cholesterol 31. B12 level slightly therapeutical ly low at 385. Thyroid-stimulating hormone level is very elevated at 18 with free T3 low at 2.0, T4 is normal at 0.93. Urinalysis is negative. His COVID-19 screening is negative. Assessment: Mr. Mitchell is an 89-year-old patient with multiple left pontine strokes. He has renal in sufficiency, mildly elevated blood sugars, and chronic anemia. He has neurological deficits, increas ed risk for aspiration, and he has some right-sided weakness with incoordination, putting him at high risk of falling. Now, he is beginning to benefit as he is admitted to the inpatient rehabilitation for physical, occupational, and speech therapy along with aggressive management of his comorbid condi tions as outlined. Plan: Physical and occupational therapy in the inpatient rehabilitation unit. Also, continue aspiri n 81 mg daily, Plavix 75 mg daily. He will continue thiamine 100 mg daily, Cozaar 50 mg daily, Bysto lic 10 mg daily. We will give melatonin 3 mg at night for sleep and Lipitor 40 mg at bedtime along w ith vitamin B12 at 1000 mcg sublingual daily. He will have DVT prophylaxis with Lovenox 40 mg subcut aneously daily. BEN/JOHN Voice ID: [id number] Report ID: [id number]
== END 2020-06-04 17:00 | DRG 65 ==
LOC: ER 17:06 → 4TH 21:19
PROVIDERS: ADMIT Family Medicine; ATTEND Family Medicine
DX: I63.9 Cerebral infarction, unspecified (principal); G81.91 Hemiplegia, unspecified affecting right dominant side; R29.704 NIHSS score 4; R26.2 Difficulty in walking, not elsewhere classified; R29.810 Facial weakness; R47.81 Slurred speech; R27.8 Other lack of coordination; I25.10 Atherosclerotic heart disease of native coronary artery without angina pectoris; I12.9 Hypertensive chronic kidney disease with stage 1 through stage 4 chronic kidney disease, or unspecified chronic kidney disease; N18.30 Chronic kidney disease, stage 3 unspecified; E11.22 Type 2 diabetes mellitus with diabetic chronic kidney disease; D63.8 Anemia in other chronic diseases classified elsewhere; E87.6 Hypokalemia; E78.5 Hyperlipidemia, unspecified; E83.51 Hypocalcemia; E07.9 Disorder of thyroid, unspecified; I71.4 Abdominal aortic aneurysm, without rupture; W18.30XA Fall on same level, unspecified, initial encounter; R60.9 Edema, unspecified; Z60.2 Problems related to living alone; Z85.51 Personal history of malignant neoplasm of bladder; Z87.891 Personal history of nicotine dependence; Z79.82 Long term (current) use of aspirin; Z85.038 Personal history of other malignant neoplasm of large intestine; Z90.49 Acquired absence of other specified parts of digestive tract; Z79.899 Other long term (current) drug therapy; Z79.02 Long term (current) use of antithrombotics/antiplatelets; Z85.46 Personal history of malignant neoplasm of prostate; Z95.5 Presence of coronary angioplasty implant and graft; Z86.73 Personal history of transient ischemic attack (TIA), and cerebral infarction without residual deficits; Z20.822 Contact with and (suspected) exposure to COVID-19
CPT/HCPCS: 36415; 70450; 70544; 70551; 71045; 71250; 72100; 72125; 74176; 76770; 80048; 80053; 80061; 80076; 81003; 82607; 82728; 83036; 83540; 83735; 84100; 84436; 84439; 84443; 84466; 84480; 84481; 84484; 84550; 85025; 85610; 85730; 86038; 92610; 93005; 93306; 93880; 97112; 97116; 97161; 99285; J1650; J2270; J3475; J7030; U0003

== ENCOUNTER 2020-06-04 11:31 | Inpatient (IN) | payer OTHER, MEDICARE ==
--- NOTE | 2020-06-04 14:39 | R.PREADM ---
PRE-ADMISSION SCREENING FORM SCREENING DATE AND TIME 06/04/2020 12:00 (CDT) ANTICIPATED REHAB ADMISSION DATE 06/06/2020 REFERRING FACILITY [facility] REFERRAL DATE AND TIME 06/04/2020 12:01 (CDT) REFERRAL ROOM# 431 ACUTE ADMIT DATE 06/04/2020 Previous Rehabilitation(s): No. ACUTE MACHINE WEDGER/DC NEUROPSYCHOLOGIST Carina ATTENDING PHYSICIAN REFERRING PHYSICIAN Rigo Cotton REHAB FACILITY [facility] CLINICAL LIAISON Manjit Schulz PHYSICIAN REVIEWER Dr. Cristofer Morgan M.D. MR# [id number] NAME MABLE LUNDBERG ADDRESS [address] [place] [address] DR SHIRLEY PARRA PHONE [facility] [id number] DATE OF 1930 AGE 89 SSN# [id number] GENDER male MARITAL STATUS RACE unknown race ADMIT FROM 02 - [facility] PRE-HOSPITAL LIVING SETTING 01 - Home (private home/apt. board/care, assisted living, shelter, transitional living) HOME TYPE AND DETAILS Type of home: single family house # of levels in the residence: 1 # of steps to enter the residence: 0 # of steps within the residence: 0 PRE-HOSPITAL LIVING WITH Family/Relatives FAMILY SUPPORT Yes PRIMARY FAMILY CONTACT NAME TRACY LUNDBERG PRIMARY FAMILY CONTACT PHONE PRIMARY FAMILY CONTACT RELATIONSHIP Son PHONE PRIMARY FAMILY CONTACT ON ADM.? no IS PRIMARY FAMILY CONTACT AUTH. REP.? no 1ST EMERGENCY CONTACT TRACY LUNDBERG 1ST CONTACT PHONE 1ST CONTACT RELATIONSHIP Son PHONE 1ST CONTACT ON ADM. no IS 1ST CONTACT AUTH. REP.? no PHONE 2ND CONTACT ON ADM.? no PATIENT EMPLOYMENT STATUS Retired (for age) PATIENT EMPLOYER No Employer PAYOR INFORMATION: 1ST PAYOR NAME MEDICARE 1ST PAYOR PHONE 1ST PAYOR INJURY/ILLNESS DUE TO ACCIDENT? No ANOTHER REPUBLICAN RESPONSIBLE? No PRIMARY REHAB/ACUTE DIAGNOSIS: CVA ONSET DATE 06/02/2020 REHAB IMPAIRMENT CATEGORY ([place]): 01 Stroke (STR) MEETS 60% rule AFFECTED EXTREMITIES: LLE, and LUE PRIMARY DIAGNOSIS-RELATED SURGERIES: N/A SUMMARY OF ACUTE HOSPITALIZATION: Pt. is a 89 yo Right-handed male of unknown race. On 06/02/2020 Pt. presented to [facility] with sudden onset of left-side weakness. On 06/02/2020 he was admitted to [facility] with diagnosis CVA. His impairment category is Stroke 01 - Left Body (Right Brain) (01.1). Pre-morbidly, Pt. was independent/mod-I in Balance and Self-Care; and he had good Communication, Points motion, and Transfers Control. Currently, he has deficits of Locomotion, Balance, Safety Awareness, Transfers Control, Sphincter Con trol, Self-Care, and Endurance. Pt. is now referred to [facility] for acute in-patient rehabilitation in order to maximize patient's functional independence in activities of daily living, strength, ROM, and mobi lity. Patient has realistic goal of being discharged at assistance level 7-Ind to reside at Home with Fami ly/Relatives. PAST MEDICAL HISTORY CAD HYPERTENSION BLADDER,PROSTATE,COLON CANCER Colostomy PROSTATECTOMY MEDICATION ALLERGIES: No Known Drug Allergies (NKDA) ENVIRONMENTAL ALLERGIES: - Substance Allergies None Known - Other Allergies None Known CODE STATUS: Full code WEIGHT/HEIGHT/BMI: WEIGHT 228 lbs HEIGHT 6' 3" BMI 28.5 DIET: - Diet Type Regular - Diet - Solid Texture Regular - Diet - Liquid Texture Regular - Tube Feed N/A REVIEW OF SYSTEMS: - Gen Alert and awake Lying in bed No apparent distress Oriented to: person, time, and place - Vital Signs Temperature: 97.5 F SBP/DBP: 144/85 Pulse: 75 Resp: 18 Vital signs stable, afebrile - CVS RRR VITAL SIGNS Temperature: 97.5 F SBP/DBP: 144/85 Pulse: 75 Resp: 18 Vital signs stable, afebrile MEDICATIONS/TREATMENT: Other- See attached MAR (Medication Administration Record). CURRENT SPHINCTER CONTROL: Pre-hospital bladder status: unspecified # of bladder accidents in the last 7 days prior to screenin Pre-hospital bowel status: unspecified # of bowel accidents in the last 7 days prior to screenin Last Bowel Movement Date: 06/04/2020 CURRENT LOCOMOTION STATUS: distance walked 25 feet with rolling walker DETAILED CURRENT FUNCTIONAL STATUS: - Bladder accident frequency: 7-Ind - No accidents in the past 7 days - Bowel accident frequency: 7-Ind - No accidents in the past 7 days - Walking score based on distance walked: 0(N/A) score based on distance walked: 1(<=50ft) - Wheelchair score based on distance traveled: 0(N/A) QI SCORES: - Self-Care A. Eating 03-Partial/moderate assistance B. Oral hygiene 03-Partial/moderate assistance C. Toileting hygiene 02-Substantial/maximal assistance E. Shower/bathe self 02-Substantial/maximal assistance F. Upper body dressing 02-Substantial/maximal assistance G. Lower body dressing 02-Substantial/maximal assistance H. Putting on/taking off footwear 88-Not attempted due to medical condition or safety concerns - Mobility A. Roll left and right 03-Partial/moderate assistance B. Sit to lying 03-Partial/moderate assistance C. Lying to sitting on side of bed 03-Partial/moderate assistance D. Sit to stand 03-Partial/moderate assistance E. Chair/loj-dw-euort transfer 03-Partial/moderate assistance F. Toilet transfer 02-Substantial/maximal assistance G. Car transfer 88-Not attempted due to medical condition or safety concerns I. Walk 10 feet 03-Partial/moderate assistance J. Walk 50 feet with two turns 88-Not attempted due to medical condition or safety concerns K. Walk 150 feet 88-Not attempted due to medical condition or safety concerns L. Walking 10 feet on uneven surfaces 88-Not attempted due to medical condition or safety concerns M. 1 step (curb) 88-Not attempted due to medical condition or safety concerns N. 4 steps 88-Not attempted due to medical condition or safety concerns O. 12 steps 88-Not attempted due to medical condition or safety concerns P. Picking up object R. Wheel 50 feet with two turns 88-Not attempted due to medical condition or safety concerns S. Wheel 150 feet 88-Not attempted due to medical condition or safety concerns - Bladder and Bowel Bladder continence Bowel continence - Endurance Fair - Balance Fair - Safety Awareness Fair CURRENT FUNC. DEFICITS: Self-Care, Mobility, Endurance, Balance, and Safety Awareness CURRENT / PREVIOUS ASSISTIVE DEVICES: Rolling Walker HISTORY OF FALLS. HAS THE PATIENT HAD TWO OR MORE FALLS IN THE PAST YEAR OR ANY FALL WITH INJURY IN T HE PAST YEAR?: No PRIOR SURGERY. DID THE PATIENT HAVE MAJOR SURGERY DURING THE 100 DAYS PRIOR TO ADMISSION?: No THERAPY NOTES FROM ACUTE CARE: Attached. SPECIAL NEEDS: - Safety Concerns Skin breakdown precautions needed due to skin breakdown risk PRECAUTIONS: - Weight Bearing Precaution WBAT left LE PATIENT NEEDS ACTIVE AND ONGOING THERAPEUTIC INTERVENTION OF MULTIPLE THERAPY DISCIPLINES, INCLUDING: - Occupational Therapy Cognitive Retraining. Visual Perceptual Training. - Dietary and Nutrition Adequate Nutrition. Nutritional Education. Nutritional Supplements. - Speech Therapy Cognitive Training. Expressive Language Skills. Memory Strategies. Receptive Language Skills. Speech Intelligibility Training. PATIENT NEEDS CLOSE MEDICAL SUPERVISION BY A REHABILITATION PHYSICIAN FOR: Coordination of Treatment Team PATIENT REQUIRES 24X7 REHAB NURSING FOR MEDICAL AND FUNCTIONAL MGT. OF THE FOLLOWING DEFICITS: Disease Management Medication Management Patient/Family Education Providing Safe Environment PATIENT REQUIRES INTENSIVE, COORDINATED INTERDISCIPLINARY APPROACH TO REHAB: Arranging Home Equipment/Services Discharge Planning Family Intervention/Training Side Door Worker/Case Management PATIENT REHAB POTENTIAL: Alexa LUNDBERG is able and expected to receive 3 hours of individualized therapy daily on at least 5 of misbah ry 7 days Alexa LUNDBERG's prognosis for significant practical improvement within a reasonable period of time appears Good Expected level of measurable improvement will be of a practical value to Alexa LUNDBERG's functional capaci ty or adaptations to impairments Has a viable Discharge Plan Medically appropriate; condition is sufficiently stable to participate in intensive rehab program DISCHARGE PLAN: - Estimated Length of Stay (days) 17. - Consensus on plan Discharge plan has been discussed with primary caregiver. Patient/Family is in agreement with the venkatesh n. Primary caregiver is in agreement with the plan. - Patient/Family Goals Return home independently. - Planned Living Setting Upon Discharge Home, to live with Family/Relatives. Transitional Living. RECOMMENDED CARE LEVEL: IRF RECOMMENDATION DETAILS: Recommended Admission to Comprehensive Rehabilitation Program to Increase Functional [place] SCREENER'S COMPLETENESS CONFIRMATION: - Screening Confirmation The patient data collection on this preadmission screening form is finished PHYSICIANS REVIEW AND ADMISSION DETERMINATION Admit - Based on my review of the Pre-Admission Screening results, in my medical judgment and experie nce, I concur with the findings and recommend admission to [facility], as this patient requires an IRF level of care. SIGNATURE PANEL: Chief Analytics Officer - [electronically] signed by Manjit Schulz on 06/04/2020 at 13:06 (CDT) Chief Analytics Officer - [electronically] signed by Janusz Cody PT on 06/04/2020 at 13:09 (CDT) Physician Reviewer - [electronically] signed by Dr. Cristofer Morgan M.D. on 06/04/2020 at 14:39 (CDT )
--- OUTSIDE RECORDS SUMMARY | 2020-06-04 17:11 | XMS REPORT | Continuity of Care Document ---
:1930 Author Organization [facility] t Address [address] [place] [address] Care Team Providers Name Role Phone Iban [...] DA Active [place] [facility] ins 06-19 00:00: [address] Medications This patient has no known medications. Procedures This patient has no known procedures. Encounters Start End Encounter Admission Attending Care Care Encounter Source Date/Time Date/Time Type Type Clinicians Facility Department ID 2019-06-19 2019-06-20 Emergency Dami Ferrera [facility] [id number] 15:24:08 15:42:00 Chase Sears [id number] [place] [id number] [place] [phone] [id number] 2018-09-04 2018-09-04 [address] Operator 1, Adc Lab [facility] [id number] 08:53:48 09:08:48 Visit Vinicio [id number] [place] [id number] [place] [phone] [id number] 2018-09-04 2018-09-04 Orders Doctor KORI [id number] 00:00:00 00:00:00 Only Unassigned, LENY [id number] [facility] [id number] [id number] Results Test Description Test Time Test Comments Results Result Comments Source ACT-ISTAT 2019-06-24 10:27:00 Test Item Value Reference Range Interpretation Comme nts -ISTA (test code = ACTI) 197 SEC 74-137 H BASIC METABOLIC [id number] 06:24:00 Test Item Value Reference Range Interpretation [...] 8.5 MG/DL 8.4-10.2 N CA) BASIC METABOLIC [id number] 06:23:00 Test Item Value Reference Range Interpretation [...] code = MG/DL 8.7-9.7 CA) BASIC METABOLIC [id number] 06:23:00 Test Item Value Reference Range Interpretation [...] code = MG/DL 8.7-9.7 CA) BASIC METABOLIC [id number] 06:21:00 Test Item Value Reference Range Interpretation [...] code = CA) MG/DL 8.7-9.7 BASIC METABOLIC [id number] 06:20:00 Test Item Value Reference Range Interpretation [...] code = CA) MG/DL 8.7-9.7 CBC W/AUTO [id number] 05:46:00 Test Item Value Reference Range Interpretation [...] 0.00 K/mm3 0.0-0.1 N NRBC#) GLUCOSE BEDSIDE [id number] 08:22:00 Test Item Value Reference Range Interpretation Comments GLUCOSE BEDSIDE TESTING (test code = 88 MG/DL 60-99 N GLUBED) GLUCOSE BEDSIDE [id number] 19:50:00 Test Item Value Reference Range Interpretation Comments GLUCOSE BEDSIDE TESTING (test code 136 MG/DL 60-99 H = GLUBED) GLUCOSE BEDSIDE [id number] 16:50:00 Test Item Value Reference Range Interpretation Comments GLUCOSE BEDSIDE TESTING (test code 127 MG/DL 60-99 H = GLUBED) GLUCOSE BEDSIDE [id number] 12:13:00 Test Item Value Reference Range Interpretation Comments GLUCOSE BEDSIDE TESTING (test code 120 MG/DL 60-99 H = GLUBED) GLUCOSE BEDSIDE [id number] 11:34:00 Test Item Value Reference Range Interpretation Comments GLUCOSE BEDSIDE TESTING (test code 128 MG/DL 60-99 H = GLUBED) - XR CHEST [id number] 07:56:00 Patient Name: MABLE LUNDBERG Unit No: [id number] EXAMS: CPT CODE: [id number] XR CHEST 1V 18518 Clinical Information: N STEMI. Chest pain. Dictation [...] Avery Izquierdo, RT(R) Transcrpt Date/Tm/Trnsp: 06/21/2019 (0756) Robin Orig Print D/T: S: 06/21/2019 (0759) [facility] NAME: MABLE LUNDBERG [address] [place] [address] PHYS: [place] [address] : 1930 AGE: 89 SEX: M LOC: [id number] PHONE #: [phone] EXAM DATE: 06/21/2019 STATUS: ADM IN FAX #: [phone] RADIOLOGY NO: PAGE 1 Signed ReportGLUCOSE BEDSIDE [id number] 07:49:00 Test Item Value Reference Range Interpretation Comments GLUCOSE BEDSIDE TESTING (test code 103 MG/DL 60-99 H = GLUBED) COMPREHENSIVE METABOLIC [id number] 07:03:00 Test Item Value Reference Range Interpretation [...] 0-189 mg/dL VERY HIGH...... ...>/= 190 mg/dL [id number] 07:03:00 Test Item Value Reference Range Interpretation Comments MAGNESIUM (test code = MAG) 1.5 MG/DL 1.6-2.3 L LIPOPROTEIN LDL [id number] 07:03:00 Test Item Value Reference Range Interpretation Comments LIPOPROTEIN LDL DIRECT 59 mg/dL 100-129 L ===== (test code = LDLDIR) ======= ==Refe rence Interval: mg/dL mmol/L--------- ------ ------ ------ --Optimal <100 <2.6Near/abov e optimal 100-129 2.6-3.3Borderli ne High 130-159 3.4-4.1High 16 0-189 4.1-4.9Ve ry High >=190 >=4.9========= This LDL result is a direct measurement.=== ====== [id number] 07:03:00 Test Item Value Reference Range Interpretation Comments TROPONIN-I (test 0.195 NG/ML 0.012-0.033 CALLED TO Rena RODRIGUEZ R& code = TROPI) READBACK ON AT 0539 BY Dyllan Cotter COMPREHENSIVE METABOLIC [id number] 05:52:00 Test Item Value Reference Range Interpretation [...] 0-189 mg/dL VERY HIGH...... ...>/= 190 mg/dL [id number] 05:52:00 Test Item Value Reference Range Interpretation Comments MAGNESIUM (test code = MAG) 1.5 MG/DL 1.6-2.3 L LIPOPROTEIN LDL [id number] 05:52:00 Test Item Value Reference Range Interpretation Comments LIPOPROTEIN LDL DIRECT (test code = mg/dL 100-129 LDLDIR) [id number] 05:52:00 Test Item Value Reference Range Interpretation Comments TROPONIN-I (test 0.195 NG/ML 0.012-0.033 CALLED TO Rena RODRIGUEZ R& code = TROPI) READBACK ON AT 0539 BY Dyllan Cotter COMPREHENSIVE METABOLIC [id number] 05:39:00 Test Item Value Reference Range Interpretation [...] 0-189 mg/dL VERY HIGH...... ...>/= 190 mg/dL [id number] 05:39:00 Test Item Value Reference Range Interpretation Comments MAGNESIUM (test code = MAG) 1.5 MG/DL 1.6-2.3 L LIPOPROTEIN LDL [id number] 05:39:00 Test Item Value Reference Range Interpretation Comments LIPOPROTEIN LDL DIRECT (test code = mg/dL 100-129 LDLDIR) [id number] 05:39:00 Test Item Value Reference Range Interpretation Comments TROPONIN-I (test 0.195 NG/ML 0.012-0.033 CALLED TO Rena RODRIGUEZ R& code = TROPI) READBACK ON AT 0539 BY Dyllan Cotter COMPREHENSIVE METABOLIC [id number] 05:24:00 Test Item Value Reference Range Interpretation [...] LDL (test MG/DL 0-99 code = LDL) [id number] 05:24:00 Test Item Value Reference Range Interpretation Comments MAGNESIUM (test code = MAG) 1.5 MG/DL 1.6-2.3 L [id number] 05:24:00 Test Item Value Reference Range Interpretation Comments TROPONIN-I (test code = TROPI) NG/ML 0.0-0.045 PROTHROMBIN [id number] 05:17:00 Test Item Value Reference Range Interpretation [...] CARE STAFF:CUATE ON 06/20/19 AT 1948 BY DOUG TO DRAW BLOOD, REASON: PT IS NOT HERE NOTIFIED PATIENT CARE STAFF: CECIL QUINTERO WILL CALL [facility] 06/20/19AT 1630 BY Geovanna Feng W/AUTO [id number] 05:03:00 Test Item Value Reference Range Interpretation [...]
[2020-06-04 18:22] VITALS: BMI 27.7
[2020-06-04] MEDS: MELATONIN 3 MG TABLET PO PRN (21:23)
[2020-06-04] MEDS: ATORVASTATIN 40 MG TAB PO SCH (21:23)
[2020-06-04 21:46] LABS: Urine Appearance CLEAR (Clear); Urine Bilirubin NEGATIVE (Negative); Urine Blood NEGATIVE (Negative); Urine Color YELLOW (Yellow); Urine Glucose NEGATIVE (Negative); Urine Protein NEGATIVE (Negative); Urine Urobilinogen 0.2 mg/dL (0.2-1.0)
[2020-06-04 22:17] LABS: Urine Bacteria <20 /HPF (NONE SEEN); Urine RBC <5 /HPF (NONE SEEN)
[2020-06-05] MEDS ORDERED: ONDANSETRON 4 MG (ODT) TAB PO PRN (06:10)
[2020-06-05 06:55] LABS: Basophils % 0.8 % (0-1.3); Hematocrit 32.4 % (39.6-49.0); Lymphocytes % 19.1 % (15.3-44.8); MPV 8.5 fL (7.6-11.3); RBC Red Blood Cell Count 3.35 M/uL (4.33-5.43)
[2020-06-05 07:16] LABS: Magnesium 1.9 mg/dL (1.8-2.4); Potassium 4.1 mmol/L (3.5-5.1); Prealbumin 14.8 mg/dL (20-40)
[2020-06-05] MEDS: ENOXAPARIN 40 MG/0.4 ML SQ SCH (07:28)
[2020-06-05] MEDS: ACETAMINOPHEN 500 MG TAB PO PRN (07:55)
[2020-06-05] MEDS: THIAMINE HCL 100 MG TABLET PO SCH (07:56)
[2020-06-05] MEDS: NEBIVOLOL HCL 5 MG TAB PO SCH (07:56)
[2020-06-05] MEDS: FOLIC ACID 1 MG TABLET PO SCH (07:56)
[2020-06-05] MEDS: ASPIRIN EC 81 MG TAB PO SCH (07:56)
[2020-06-05] MEDS: FERROUS SULFATE 325 MG TAB PO SCH (07:57)
[2020-06-05] MEDS: CLOPIDOGREL 75 MG TABLET PO SCH (07:57)
[2020-06-05] MEDS: LOSARTAN POTASSIUM 50 MG TABLET PO SCH (07:57)
[2020-06-05] MEDS: CYANOCOBALAMIN 1,000 MCG TAB PO SCH (07:57)
--- NOTE | 2020-06-05 10:04 | P.RH.PN ---
Estimated Length of Stay: 14 Expected Discharge Date: 06/18/20 Discharge Disposition Plan: Home Family Support: Yes Senior Living Goal: Mobility, Transfers, Self Care Vital Signs: Last Vital Signs Temp 98.5 F 06/05/20 07:43 Pulse 63 06/05/20 07:56 Resp 18 06/05/20 07:43 BP 169/78 H 06/05/20 07:56 Pulse Ox 98 06/05/20 07:43 Laboratory: Laboratory Last Values WBC 5.50 K/uL (4.3-10.9) 06/05/20 06:21 RBC 3.35 M/uL (4.33-5.43) L 06/05/20 06:21 Hgb 10.9 g/dL (13.6-17.9) L 06/05/20 06:21 Hct 32.4 % (39.6-49.0) L 06/05/20 06:21 MCV 96.5 fL (80-100) 06/05/20 06:21 MCH 32.5 pg (27.0-35.0) 06/05/20 06:21 MCHC 33.7 g/dL (32.0-36.0) 06/05/20 06:21 RDW 13.6 % (12.1-15.2) 06/05/20 06:21 Plt Count 159 K/uL (152-406) 06/05/20 06:21 MPV 8.5 fL (7.6-11.3) 06/05/20 06:21 Neutrophils % 64.6 % (41.7-73.7) 06/05/20 06:21 Lymphocytes % 19.1 % (15.3-44.8) 06/05/20 06:21 Monocytes % 11.6 % (3.3-12.3) 06/05/20 06:21 Eosinophils % 3.9 % (0-4.4) 06/05/20 06:21 Basophils % 0.8 % (0-1.3) 06/05/20 06:21 Absolute Neutrophils 3.5 K/uL (1.8-8.0) 06/05/20 06:21 Absolute Lymphocytes 1.0 K/uL (0.7-4.9) 06/05/20 06:21 Absolute Monocytes 0.6 K/uL (0.1-1.3) 06/05/20 06:21 Absolute Eosinophils 0.2 K/uL (0-0.5) 06/05/20 06:21 Absolute Basophils 0.0 K/uL (0-0.5) 06/05/20 06:21 Sodium 144 mmol/L (136-145) 06/05/20 06:21 Potassium 4.1 mmol/L (3.5-5.1) 06/05/20 06:21 Chloride 113 mmol/L (98-107) H 06/05/20 06:21 Carbon Dioxide 27 mmol/L (21-32) 06/05/20 06:21 BUN 21 mg/dL (7-18) H 06/05/20 06:21 Creatinine 1.31 mg/dL (0.55-1.3) H 06/05/20 06:21 Estimated GFR 52 mL/min (=/>90) L 06/05/20 06:21 Glucose 116 mg/dL (74-106) H 06/05/20 06:21 Calcium 8.8 mg/dL (8.5-10.1) 06/05/20 06:21 Magnesium 1.9 mg/dL (1.8-2.4) 06/05/20 06:21 Albumin 3.0 g/dL (3.4-5.0) L 06/05/20 06:21 Prealbumin 14.8 mg/dL (20-40) L 06/05/20 06:21 Urine Color Yellow (Yellow) 06/04/20 21:15 Urine Appearance Clear (Clear) 06/04/20 21:15 Urine pH 6.0 (5.0-7.0) 06/04/20 21:15 Ur Specific [place] 1.010 (1.005-1.030) 06/04/20 21:15 Glucose (UA)(Auto) Negative (Negative) 06/04/20 21:15 Urine Ketones Negative (Negative) 06/04/20 21:15 Urine Blood Negative (Negative) 06/04/20 21:15 Urine Nitrite Negative (Negative) 06/04/20 21:15 Urine Bilirubin Negative (Negative) 06/04/20 21:15 Urine Urobilinogen 0.2 mg/dL (0.2-1.0) 06/04/20 21:15 Ur Leukocyte Esterase Negative (Negative) 06/04/20 21:15 Urine RBC <5 /HPF (NONE SEEN) 06/04/20 21:15 Urine WBC <5 /HPF (<5) 06/04/20 21:15 Ur Squamous Epith Cells <5 /HPF (NONE SEEN) 06/04/20 21:15 Urine Bacteria <20 /HPF (NONE SEEN) 06/04/20 21:15 Urine Culture Reflexed Not needed 06/04/20 21:15 Urine Total Protein Negative (Negative) 06/04/20 21:15 Weight: 222 lb Wound Present: No Closed Surgical Incision Present: No Negative Pressure Wound Therapy Present: No Physician Update: He is doing OK but has a lot to manage at home including colostomy. His right side weakness puts him at max assistance with ambulation and transfers. He fatigue quickly. He has difficulty processing information. His son may be of assistance at home. Summary: Patient's care plan and terminal computer operator goals have been reviewed and revised as necessary. Please see the Rehabilitation Signature page for all necessary signatures.
[2020-06-05] MEDS: TRAMADOL HCL 50 MG TAB PO PRN ×2 (12:02→17:15)
--- NOTE | 2020-06-05 12:25 | RAD REPORT ---
EXAM DESCRIPTION: CT - Head Brain Wo Cont - 06/05/2020 11:52 am CLINICAL HISTORY: Hemmorhagic conversion Headache, drowsiness COMPARISON: Head Brain Wo Cont dated 06/04/2020; Ct Stroke Brain Wo Cont dated 06/02/2020 TECHNIQUE: All CT scans are performed using dose optimization technique as appropriate and may inclu de automated exposure control or mA/KV adjustment according to patient size. FINDINGS: No intracranial hemorrhage, hydrocephalus or extra-axial fluid collection.Mild generalized brain atrophy is present with mild periventricular and deep white matter chronic microvascular ische georges changes.No areas of brain edema or evidence of midline shift. Mild vertebral atherosclerosis. The paranasal sinuses and mastoids are clear. The calvarium is intact. IMPRESSION: No acute intracranial abnormality.
[2020-06-05] MEDS: LIDOCAINE 4% PATCH TOP SCH (13:01)
--- NOTE | 2020-06-05 14:58 | R.HP ---
HISTORY AND PHYSICAL FACILITY: [facility] ENCOUNTER DATE AND TIME: 06/05/2020 14:50 (CDT) MR#: [id number] NAME MABLE LUNDBERG ADDRESS: [facility] [address] CITY: [place] [address] [address] PHONE: DATE OF : 1930 AGE: 89 SSN# [id number] GENDER: Male DEXTERITY Right-handed MARITAL STATUS RACE Unknown race PRE-HOSPITAL LIVING SETTING 01 - Home (private home/apt. board/care, assisted living, nursing home, transitional living) PRE-HOSPITAL LIVING WITH Family/Relatives ENCOUNTER PHYSICIAN: Dr. Cristofer Morgan M.D. REFERRING DOCTOR: jasmine Cotton DATE OF ADMISSION: 06/04/2020 17:08 (CDT) REFERRING FACILITY [facility] HOME TYPE AND DETAILS: Type of home: single family house # of levels in the residence: 1 # of steps to enter the residence: 0 # of steps within the residence: 0 ONSET DATE: 06/02/2020 PRIMARY DIAGNOSIS-RELATED SURGERIES: N/A HISTORY OF PRESENT ILLNESS (HPI): Pt. is a 89 yo Right-handed male of unknown race. On 06/02/2020 Pt. presented to [facility] with sudden onset of left-side weakness. On 06/02/2020 he was admitted to [facility] with diagnosis CVA. His impairment category is Stroke 01 - Left Body (Right Brain) (01.1). Pre-morbidly, Pt. was independent/mod-I in Balance and Self-Care; and he had good Communication, [place] motion, and Transfers Control. Currently, he has deficits of Locomotion, Balance, Safety Awareness, Transfers Control, Sphincter Con trol, Self-Care, and Endurance. Pt. is now referred to [facility] for acute in-patient rehabilitation in order to maximize patient's functional independence in activities of daily living, strength, ROM, and mobi lity. Patient has realistic goal of being discharged at assistance level 7-Ind to reside at Home with Fami ly/Relatives. MEDICATION ALLERGIES: No Known Drug Allergies (NKDA) ENVIRONMENTAL ALLERGIES: - Substance Allergies None Known - Other Allergies None Known PAST MEDICAL HISTORY: CAD HYPERTENSION BLADDER,PROSTATE,COLON CANCER Colostomy PROSTATECTOMY SOCIAL HISTORY: - Home Living Family/Relatives REVIEW OF SYSTEMS: - Gen No Chills Fatigue No Fever - Eyes No Double Vision No itchiness - ENMT Difficulty Swallowing - CVS No Chest Discomfort No Chest Pain No Fatigue No Weight Gain - Resp No Cough No Shortness of Breath - GI Continent No Abdominal Pain No Constipation No Diarrhea - Continent No Kidney Pain No Painful Urination No Urinary Urgency - MSK No Joint Pain Muscle Cramps Stiffness - Skin No Itching No Rash No Suspicious Lesions - Neuro Coordination Difficulty Difficulty with Concentration Memory Loss No Seizures Weakness - Psych No Anxiety No Depression No HIV Exposure No Persistent Infections No Seasonal Allergies - Endo No Cold/Heat Intolerance No Excessive Hunger No Excessive Thirst No Excessive Urination PHYSICAL EXAM - Gen Alert and awake Lying in bed No apparent distress Oriented to: person, time, and place - Skin No skin breakdown. Atraumatic - Eyes No abnormalities - ENMT No abnormalities - Neck No abnormalities - CVS RRR - Chest Clear - Abd + bowel sounds - GI Soft Deferred - No abnormalities - Ext No significant edema - MSK Right arm and leg weakness, dysarthria. - Neuro Right arm and leg weakness, dysarthria. - Psych No abnormalities VITAL SIGNS Temp: 98.5 SBP/DBP: 169/78 Pulse: 63 Resp: 16 NURSING: - Shower allowing shower - Bladder care per protocol - Skin care per protocol PRECAUTIONS: - Weight Bearing Precaution WBAT left LE ACTIVITIES OOB only with supervision QI SCORES: - Self-Care A. Eating 03-Partial/moderate assistance B. Oral hygiene 03-Partial/moderate assistance C. Toileting hygiene 02-Substantial/maximal assistance E. Shower/bathe self 02-Substantial/maximal assistance F. Upper body dressing 02-Substantial/maximal assistance G. Lower body dressing 02-Substantial/maximal assistance H. Putting on/taking off footwear 88-Not attempted due to medical condition or safety concerns - Mobility A. Roll left and right 03-Partial/moderate assistance B. Sit to lying 03-Partial/moderate assistance C. Lying to sitting on side of bed 03-Partial/moderate assistance D. Sit to stand 03-Partial/moderate assistance E. Chair/lwm-od-yvvoe transfer 03-Partial/moderate assistance F. Toilet transfer 02-Substantial/maximal assistance G. Car transfer 88-Not attempted due to medical condition or safety concerns I. Walk 10 feet 03-Partial/moderate assistance J. Walk 50 feet with two turns 88-Not attempted due to medical condition or safety concerns K. Walk 150 feet 88-Not attempted due to medical condition or safety concerns L. Walking 10 feet on uneven surfaces 88-Not attempted due to medical condition or safety concerns M. 1 step (curb) 88-Not attempted due to medical condition or safety concerns N. 4 steps 88-Not attempted due to medical condition or safety concerns O. 12 steps 88-Not attempted due to medical condition or safety concerns P. Picking up object R. Wheel 50 feet with two turns 88-Not attempted due to medical condition or safety concerns S. Wheel 150 feet 88-Not attempted due to medical condition or safety concerns - Bladder and Bowel Bladder continence Bowel continence - Endurance Fair - Balance Fair - Safety Awareness Fair CURRENT FUNC. DEFICITS: Self-Care, Mobility, Endurance, Balance, and Safety Awareness MEDICATIONS: - Other See attached MAR (Medication Administration Record) ASSESSMENT: Pt. is a 89 yo Right-handed male of unknown race.On 06/02/2020 Pt. presented to [facility] with sudden onset of left-side weakness.On 06/02/2020 he was admitted to [facility] w ith diagnosis CVA.His impairment category is Stroke 01 - Left Body (Right Brain) (01.1).Pre-morbidly , Pt. was independent/mod-I in Balance and Self-Care; and he had good Communication, Locomotion, and Transfers Control.Currently, he has deficits of Locomotion, Balance, Safety Awareness, Transfers Cont rol, Sphincter Control, Self-Care, and Endurance.Pt. is now referred to [facility] for acute in-patient rehabilitation in order to maximize patient's functional independence in ac tivities of daily living, strength, ROM, and mobility.- Rehab Goal Patient has realistic goal of being discharged at assistance level 7-Ind to reside at Home with Fami ly/Relatives. for Dementia, TBI, Stroke, or others - Physical Therapy Gait dysfunction - to improve, our physical therapists will perform initial evaluation of pt's status upon admission and devise an individualized program for Gait Training, and Wheel Chair mobility Inability to transfer - to improve, our physical therapists will perform initial evaluation of pt's s tatus upon admission and devise an individualized program for Bed mobility Need for home safety evaluation - to improve, our physical therapists will perform initial evaluation of pt's status upon admission and devise an individualized program for Home Evaluation Need in caregiver upon discharge - to improve, our physical therapists will perform initial evaluatio n of pt's status upon admission and devise an individualized program for Caregiver Training New precaution - to improve, our physical therapists will perform initial evaluation of pt's status u kiana admission and devise an individualized program for Patient precaution education Edema - to improve, our physical therapists will perform initial evaluation of pt's status upon admi ssion and devise an individualized program for Elevation Training, and Lymphedema Therapy Poor balance - to improve, our physical therapists will perform initial evaluation of pt's status upo n admission and devise an individualized program for Balance Training Poor endurance - to improve, our physical therapists will perform initial evaluation of pt's status u kiana admission and devise an individualized program for Endurance Training Weakness - to improve, our physical therapists will perform initial evaluation of pt's status upon ad mission and devise an individualized program for Aquatic Therapy, Neuromuscular Reeducation, and Stre ngthening Achieving independence - to improve, our physical therapists will perform initial evaluation of pt's status upon admission and devise an individualized program for Community Reintegration Activities - Occupational Therapy ADL deficits - to improve, our occupation therapists will perform initial evaluation of pt's status u kiana admission and devise an individualized program for Bathing, Bed mobility, Community Reintegration , Cooking, Dressing, Eating, Fine Motor Skills, Grooming, Homemaking, Kitchen Mobility, Laundry, Cathy ent Education, Safety Awareness, Splinting - Positioning, Transfers(Toilet, Tub, Shower), and Wheel C hair Management Need for dog daycare provider - to improve, our occupation therapists will perform initial evaluation of pt's s tatus upon admission and devise an individualized program for Caregiver Training Weakness - to improve, our occupation therapists will perform initial evaluation of pt's status upon admission and devise an individualized program for Aquatic Therapy, Balance, Endurance, UE ROM, and U E strengthening MEDICAL PLAN: - Diet Type Start Regular - Diet - Liquid Texture Start Regular - Tube Feed Start N/A - Bladder care per protocol - Weight Bearing Precaution WBAT left LE - Skin care per protocol - Other See attached MAR (Medication Administration Record) - Diet - Solid Texture Regular - Shower shower DISCHARGE PLAN: - Estimated Length of Stay (days) 17. - Consensus on plan Discharge plan has been discussed with primary caregiver. Patient/Family is in agreement with the venkatesh n. Primary caregiver is in agreement with the plan. - Patient/Family Goals Return home independently. - Planned Living Setting Upon Discharge Home, to live with Family/Relatives. Transitional Living. SIGNATURE PANEL: (CDT)
--- NOTE | 2020-06-05 14:59 | PAPE ---
POST ADMISSION PHYSICIAN EVALUATION PATIENT: [facility] MR# [id number] REFERRING DOCTOR jasmine Cotton EVALUATION DATE AND TIME 06/05/2020 14:58 (CDT) NAME MABLE LUNDBERG DATE OF 1930 AGE 89 PHONE SSN# [id number] GENDER male EVALUATING PHYSICIAN Dr. Cristofer Morgan M.D. ADMISSION DIAGNOSIS: CVA ONSET DATE 06/02/2020 POST-ADMISSION FUNCTIONAL/MEDICAL STATUS: - Bladder Same accident frequency: 7-Ind - No accidents in the past 7 days - Bowel Same accident frequency: 7-Ind - No accidents in the past 7 days - Walking Same score based on distance walked: 0(N/A) Same score based on distance walked: 1(<=50ft) - Wheelchair Same score based on distance traveled: 0(N/A) STATUS CHANGE EVALUATION: No change in Functional or Medical Status is identified compared with Pre-Admission screening. PATIENT NEEDS CLOSE MEDICAL SUPERVISION BY A REHABILITATION PHYSICIAN FOR: Coordination of Treatment Team PATIENT REQUIRES 24X7 REHAB NURSING FOR MEDICAL AND FUNCTIONAL MGT. OF THE FOLLOWING DEFICITS: Disease Management Medication Management Patient/Family Education Providing Safe Environment PATIENT REQUIRES INTENSIVE, COORDINATED INTERDISCIPLINARY APPROACH TO REHAB: Arranging Home Equipment/Services Discharge Planning Family Intervention/Training University Internship/Case Management LIST OF IDENTIFIED AND POTENTIAL PROBLEMS: Alteration in leisure activities Bladder, Incontinence Bowel, Incontinence Infection, Actual or Potential Mobility Impaired Pain, Alteration in Comfort Self Care Deficit Skin Integrity, Actual or Potential Urinary Tract Infection (UTI), Actual or Potential PATIENT COULD BE AT RISK FOR COMPLICATIONS FROM ADVERSE MEDICAL CONDITIONS DUE TO HIS/HER COMORBIDITI ES AND THE RIGORS OF THE INTENSIVE REHABILLITATION PROGRAM. METHODS OR INTERVENTIONS TO AVOID COMPLIC ATIONS INCLUDE: - Bleeding Stroke patients assessed for lethargy or change in status. - Infection Clinical staff to assess and manage the signs and symptoms of infection including fever, redness, war mth, etc. - Urinary Tract Infection - Aspiration Clinical staff will assess and manage coughing, drooling, congestion. - Falls Patient will be evaluated for Fall Precautions and will be placed on Fall Precautions as indicated pe r protocol. - Skin Breakdown Nursing will assess skin daily using assessment tool and will place on Skin Breakdown Precautions as indicated per protocol. - Pain Clinical staff may employ non-medication methods such as massage, distraction, decrease stimulus, etc . as needed. Clinical staff will assess patient's pain level every shift per protocol to assess and e nsure pain management effectiveness. Medications will be given and the pain level re-assessed. PRELIMINARY PLAN OF CARE: - Physical Therapy Patient needs Physical Therapy for a daily minimum of 1.5 hours at least 5 out of 7 days, to improve: Mobility, Strengthening, Transfers, Stretching, ROM, Endurance, Ability to manage stairs, Gait, and Balance. - Speech Therapy Patient needs Speech Therapy for a daily minimum of 0.5 hours at least 5 out of 7 days, to improve: S wallowing, Cognition, Language Skills, and Compensatory Strategies. - Rehabilitation Nursing Patient requires 24x7 Rehabilitation Nursing for: Pain Issues, Identifying and preventing risk factor s, Monitoring and reporting current medical conditions, Assisting with ambulation and transfer, David ting with all ADL-s, Teaching patients about disease process and medications, Family teaching, Provid ing safe environment, Bowel and Bladder Issues, Skin Integrity, and Medication Management. Patient needs University Internship and/or Case Management for: Discharge Planning, Arranging Home Equipmen t or Services, and Family Interventions. - Dietary and Nutrition Services Patient needs Dietary and Nutrition Services for: Adequate Nutrition, Nutritional Supplements, and Nu tritional Education. - Occupational Therapy Patient needs Occupational Therapy for a daily minimum of 1.5 hours at least 5 out of 7 days, to impr ove Activities of Daily Living, including: Eating, Grooming, Bathing, Dressing, Toileting, Toilet Tra nsfers, Community Reintegration, Higher functional activities, Adaptive Equipment, Splinting, Househo ld Tasks, and Other activities as determined. QI SCORES: - Self-Care A. Eating 03-Partial/moderate assistance B. Oral hygiene 03-Partial/moderate assistance C. Toileting hygiene 02-Substantial/maximal assistance E. Shower/bathe self 02-Substantial/maximal assistance F. Upper body dressing 02-Substantial/maximal assistance G. Lower body dressing 02-Substantial/maximal assistance H. Putting on/taking off footwear 88-Not attempted due to medical condition or safety concerns - Mobility A. Roll left and right 03-Partial/moderate assistance B. Sit to lying 03-Partial/moderate assistance C. Lying to sitting on side of bed 03-Partial/moderate assistance D. Sit to stand 03-Partial/moderate assistance E. Chair/iyv-tz-jhueq transfer 03-Partial/moderate assistance F. Toilet transfer 02-Substantial/maximal assistance G. Car transfer 88-Not attempted due to medical condition or safety concerns I. Walk 10 feet 03-Partial/moderate assistance J. Walk 50 feet with two turns 88-Not attempted due to medical condition or safety concerns K. Walk 150 feet 88-Not attempted due to medical condition or safety concerns L. Walking 10 feet on uneven surfaces 88-Not attempted due to medical condition or safety concerns M. 1 step (curb) 88-Not attempted due to medical condition or safety concerns N. 4 steps 88-Not attempted due to medical condition or safety concerns O. 12 steps 88-Not attempted due to medical condition or safety concerns P. Picking up object R. Wheel 50 feet with two turns 88-Not attempted due to medical condition or safety concerns S. Wheel 150 feet 88-Not attempted due to medical condition or safety concerns - Bladder and Bowel Bladder continence Bowel continence - Endurance Fair - Balance Fair - Safety Awareness Fair POTENTIAL FUNCTIONAL GOALS FOR PATIENT TO ACHIEVE BY DISCHARGE: - Safety Precaution Patient will remain free from falls or injury at time of discharge. - Bed Mobility Patient will perform bed mobility at 4-Vipul level of assistance. - Transfers Patient will complete transfers from bed to chair at 4-Vipul level of assistance. - Mobility Patient will ambulate 150 ft with 4-Vipul level of assistance with RW. PATIENT REHAB POTENTIAL Alexa LUNDBERG is able and expected to receive 3 hours of individualized therapy daily on at least 5 of misbah ry 7 days Alexa LUNDBERG's prognosis for significant practical improvement within a reasonable period of time appears Good Expected level of measurable improvement will be of a practical value to Alexa LUNDBERG's functional capaci ty or adaptations to impairments Has a viable Discharge Plan Medically appropriate; condition is sufficiently stable to participate in intensive rehab program DISCHARGE PLAN: - Estimated Length of Stay (days) 17. - Consensus on plan Discharge plan has been discussed with primary caregiver. Patient/Family is in agreement with the venkatesh n. Primary caregiver is in agreement with the plan. - Patient/Family Goals Return home independently. - Planned Living Setting Upon Discharge Home, to live with Family/Relatives. Transitional Living. CONCLUSION ON REHABILITATION NECESSITY: I have evaluated patient's pre-admission functional status and, comparing it to the patient's post-ad mission functional status now, I conclude that the pre-admission assessment was accurate. Patient's c ondition on admission supports the medical necessity of admission to IRF. It is safe to proceed with patient's therapy program. SIGNATURE PANEL: (CDT)
[2020-06-05] MEDS: NYSTATIN PWDR 100000 UNIT/GM TOP SCH (21:14)
[2020-06-05] MEDS: MELATONIN 3 MG TABLET PO PRN (21:15)
[2020-06-05] MEDS: DOCUSATE NA/SENNA CONC 1 TAB PO PRN (21:15)
[2020-06-05] MEDS: ATORVASTATIN 40 MG TAB PO SCH (21:15)
[2020-06-06] MEDS: TRAMADOL HCL 50 MG TAB PO PRN ×2 (02:34→20:24)
[2020-06-06] MEDS: NYSTATIN PWDR 100000 UNIT/GM TOP SCH ×2 (08:00→20:00)
[2020-06-06] MEDS: LOSARTAN POTASSIUM 50 MG TABLET PO SCH (08:00)
[2020-06-06] MEDS: ENOXAPARIN 40 MG/0.4 ML SQ SCH ×3 (08:00→16:06)
[2020-06-06] MEDS: NEBIVOLOL HCL 5 MG TAB PO SCH (10:23)
[2020-06-06] MEDS: ASPIRIN EC 81 MG TAB PO SCH (10:23)
[2020-06-06] MEDS: CLOPIDOGREL 75 MG TABLET PO SCH (10:23)
[2020-06-06] MEDS: THIAMINE HCL 100 MG TABLET PO SCH (10:24)
[2020-06-06] MEDS: LIDOCAINE 4% PATCH TOP SCH (10:24)
[2020-06-06] MEDS: CYANOCOBALAMIN 1,000 MCG TAB PO SCH (10:24)
[2020-06-06] MEDS: FOLIC ACID 1 MG TABLET PO SCH (10:24)
[2020-06-06] MEDS: FERROUS SULFATE 325 MG TAB PO SCH (10:24)
[2020-06-06] MEDS: ACETAMINOPHEN 500 MG TAB PO PRN (12:39)
[2020-06-06] MEDS: DOCUSATE NA/SENNA CONC 1 TAB PO PRN (20:24)
[2020-06-06] MEDS: ATORVASTATIN 40 MG TAB PO SCH (20:24)
[2020-06-06] MEDS: MELATONIN 3 MG TABLET PO PRN (20:24)
[2020-06-07] MEDS: NYSTATIN PWDR 100000 UNIT/GM TOP SCH ×2 (08:40→20:00)
[2020-06-07] MEDS: LIDOCAINE 4% PATCH TOP SCH (08:41)
[2020-06-07] MEDS: ACETAMINOPHEN 500 MG TAB PO PRN (08:42)
[2020-06-07] MEDS: FOLIC ACID 1 MG TABLET PO SCH (08:43)
[2020-06-07] MEDS: NEBIVOLOL HCL 5 MG TAB PO SCH (08:43)
[2020-06-07] MEDS: THIAMINE HCL 100 MG TABLET PO SCH (08:43)
[2020-06-07] MEDS: CLOPIDOGREL 75 MG TABLET PO SCH (08:43)
[2020-06-07] MEDS: FERROUS SULFATE 325 MG TAB PO SCH (08:44)
[2020-06-07] MEDS: CYANOCOBALAMIN 1,000 MCG TAB PO SCH (08:44)
[2020-06-07] MEDS: ASPIRIN EC 81 MG TAB PO SCH (08:44)
[2020-06-07] MEDS: LOSARTAN POTASSIUM 50 MG TABLET PO SCH (11:28)
[2020-06-07] MEDS: ENOXAPARIN 40 MG/0.4 ML SQ SCH (16:15)
[2020-06-07] MEDS: TRAMADOL HCL 50 MG TAB PO PRN (20:28)
[2020-06-07] MEDS: ATORVASTATIN 40 MG TAB PO SCH (20:29)
[2020-06-07] MEDS: MELATONIN 3 MG TABLET PO PRN (20:29)
[2020-06-08] MEDS: TRAMADOL HCL 50 MG TAB PO PRN (08:15)
[2020-06-08] MEDS: THIAMINE HCL 100 MG TABLET PO SCH (08:17)
[2020-06-08] MEDS: FOLIC ACID 1 MG TABLET PO SCH (08:17)
[2020-06-08] MEDS: FERROUS SULFATE 325 MG TAB PO SCH (08:17)
[2020-06-08] MEDS: ASPIRIN EC 81 MG TAB PO SCH (08:17)
[2020-06-08] MEDS: LOSARTAN POTASSIUM 50 MG TABLET PO SCH (08:17)
[2020-06-08] MEDS: CYANOCOBALAMIN 1,000 MCG TAB PO SCH (08:17)
[2020-06-08] MEDS: CLOPIDOGREL 75 MG TABLET PO SCH (08:17)
[2020-06-08] MEDS: NEBIVOLOL HCL 5 MG TAB PO SCH (08:17)
[2020-06-08] MEDS: LIDOCAINE 4% PATCH TOP SCH (10:02)
[2020-06-08] MEDS: NYSTATIN PWDR 100000 UNIT/GM TOP SCH ×2 (10:03→20:07)
[2020-06-08] MEDS: MAGNESIUM OXIDE 400 MG TAB PO SCH ×2 (14:33→20:07)
[2020-06-08] MEDS: ENOXAPARIN 40 MG/0.4 ML SQ SCH (17:28)
--- NOTE | 2020-06-08 17:55 | R.PN ---
PROGRESS NOTES ENCOUNTER DATE AND TIME: 06/08/2020 17:46 (CDT) NAME MABLE LUNDBERG DATE OF : 1930 DATE OF ADMISSION: 06/04/2020 17:08 (CDT) CVACHIEF COMPLAINT: Stroke with left sided weakness and dysarthria SUBJECTIVE: Pt denied any depression. Pt denied any Shortness of Breath. WBC is mildly low at 10.9, prealbumin 14.8, Pit Furnace Melter 1.31, glu 116. Wheelchair mobility done with moderate assistance, standing in parallel bars. VITAL SIGNS Temp: 98.5 SBP/DBP: 169/78 Pulse: 63 Resp: 16 MEDICATION ALLERGIES: No Known Drug Allergies (NKDA) ENVIRONMENTAL ALLERGIES: - Substance Allergies None Known - Other Allergies None Known NURSING: - Shower allowing shower - Bladder care per protocol - Skin care per protocol PRECAUTIONS: - Weight Bearing Precaution WBAT left LE ACTIVITIES OOB only with supervision THERAPIES: - Occupational Therapy Cognitive Retraining. Visual Perceptual Training. - Dietary and Nutrition Adequate Nutrition. Nutritional Education. Nutritional Supplements. - Speech Therapy Cognitive Training. Expressive Language Skills. Memory Strategies. Receptive Language Skills. Speech Intelligibility Training. PHYSICAL EXAM - Gen Alert and awake Lying in bed No apparent distress Oriented to: person, time, and place - Skin No skin breakdown. Atraumatic - Eyes No abnormalities - ENMT No abnormalities - Neck No abnormalities - CVS RRR - Chest Clear - Abd + bowel sounds - GI Soft Deferred - No abnormalities - Ext No significant edema - MSK Right arm and leg weakness, dysarthria. - Neuro Right arm and leg weakness, dysarthria. - Psych No abnormalities ASSESSMENT: Pt. is a 89 yo Right-handed male of unknown race.On 06/02/2020 Pt. presented to [facility] with sudden onset of left-side weakness.On 06/02/[address] [facility] w ith diagnosis CVA.His impairment category is Stroke 01 - Left Body (Right Brain) (01.1).Pre-morbidly , Pt. was independent/mod-I in Balance and Self-Care; and he had good Communication, Locomotion, and Transfers Control.Currently, he has deficits of Locomotion, Balance, Safety Awareness, Transfers Cont rol, Sphincter Control, Self-Care, and Endurance.Pt. is now referred to [facility] for acute in-patient rehabilitation in order to maximize patient's functional independence in ac tivities of daily living, strength, ROM, and mobility.- Rehab Goal Patient has realistic goal of being discharged at assistance level 7-Ind to reside at Home with Fami ly/Relatives. MDM/PLAN: - Physical Therapy Gait dysfunction - to improve, our physical therapists will perform initial evaluation of pt's statu s upon admission and devise an individualized program for Gait Training, and Wheel Chair mobility Inability to transfer - to improve, our physical therapists will perform initial evaluation of pt's status upon admission and devise an individualized program for Bed mobility Need for home safety evaluation - to improve, our physical therapists will perform initial evaluatio n of pt's status upon admission and devise an individualized program for Home Evaluation Need in caregiver upon discharge - to improve, our physical therapists will perform initial evaluati on of pt's status upon admission and devise an individualized program for Caregiver Training New precaution - to improve, our physical therapists will perform initial evaluation of pt's status upon admission and devise an individualized program for Patient precaution education Edema - to improve, our physical therapists will perform initial evaluation of pt's status upon admis orlin and devise an individualized program for Elevation Training, and Lymphedema Therapy Poor balance - to improve, our physical therapists will perform initial evaluation of pt's status up on admission and devise an individualized program for Balance Training Poor endurance - to improve, our physical therapists will perform initial evaluation of pt's status upon admission and devise an individualized program for Endurance Training Weakness - to improve, our physical therapists will perform initial evaluation of pt's status upon a dmission and devise an individualized program for Aquatic Therapy, Neuromuscular Reeducation, and Str engthening Achieving independence - to improve, our physical therapists will perform initial evaluation of pt's status upon admission and devise an individualized program for Community Reintegration Activities - Occupational Therapy ADL deficits - to improve, our occupation therapists will perform initial evaluation of pt's status upon admission and devise an individualized program for Bathing, Bed mobility, Community Reintegratio n, Cooking, Dressing, Eating, Fine Motor Skills, Grooming, Homemaking, Kitchen Mobility, Laundry, Pat ient Education, Safety Awareness, Splinting - Positioning, Transfers(Toilet, Tub, Shower), and Wheel Chair Management Need for home care rn - to improve, our occupation therapists will perform initial evaluation of pt's status upon admission and devise an individualized program for Caregiver Training Weakness - to improve, our occupation therapists will perform initial evaluation of pt's status upon admission and devise an individualized program for Aquatic Therapy, Balance, Endurance, UE ROM, and UE strengthening - Other See attached MAR (Medication Administration Record) - Diet Type Continue Regular - Diet - Liquid Texture Continue Regular - Tube Feed Continue N/A - Bladder care per protocol - Weight Bearing Precaution WBAT left LE - Skin care per protocol - Diet - Solid Texture Continue Regular - Shower allowing shower for Dementia, TBI, Stroke, or others FUNCTIONAL STATUS: UPDATED AT WEEKLY TEAM CONFERENCE - Bladder Same accident frequency: 7-Ind - No accidents in the past 7 days - Bowel Same accident frequency: 7-Ind - No accidents in the past 7 days - Walking Same score based on distance walked: 0(N/A) Same score based on distance walked: 1(<=50ft) - Wheelchair Same score based on distance traveled: 0(N/A) FUNCTIONAL STATUS: - Self-Care A. Eating Km B. Grooming sup C. Bathing modA D. Dressing - Upper Vipul E. Dressing - Lower modA F. Toileting Vipul - Sphincter Control G. Bladder control Vipul H. Bowel control Km - Transfers Control I. Bed/Chair/Wheelchair modA J. Toilet modA K. Tub/Shower modA - Locomotion L. Walk/Wheelchair (B) modA M. Stairs ADNO - Communication N. Comprehension (B) sup O. Expression (B) sup - Social Cognition P. Social Interaction Km Q. Problem Solving sup R. Memory sup - Endurance Fair - Balance Poor - Safety Awareness Fair QI SCORES: - Self-Care A. Eating 03-Partial/moderate assistance B. Oral hygiene 03-Partial/moderate assistance C. Toileting hygiene 02-Substantial/maximal assistance E. Shower/bathe self 02-Substantial/maximal assistance F. Upper body dressing 02-Substantial/maximal assistance G. Lower body dressing 02-Substantial/maximal assistance H. Putting on/taking off footwear 88-Not attempted due to medical condition or safety concerns - Mobility A. Roll left and right 03-Partial/moderate assistance B. Sit to lying 03-Partial/moderate assistance C. Lying to sitting on side of bed 03-Partial/moderate assistance D. Sit to stand 03-Partial/moderate assistance E. Chair/mjr-wl-cryrj transfer 03-Partial/moderate assistance F. Toilet transfer 02-Substantial/maximal assistance G. Car transfer 88-Not attempted due to medical condition or safety concerns I. Walk 10 feet 03-Partial/moderate assistance J. Walk 50 feet with two turns 88-Not attempted due to medical condition or safety concerns K. Walk 150 feet 88-Not attempted due to medical condition or safety concerns L. Walking 10 feet on uneven surfaces 88-Not attempted due to medical condition or safety concerns M. 1 step (curb) 88-Not attempted due to medical condition or safety concerns N. 4 steps 88-Not attempted due to medical condition or safety concerns O. 12 steps 88-Not attempted due to medical condition or safety concerns P. Picking up object R. Wheel 50 feet with two turns 88-Not attempted due to medical condition or safety concerns S. Wheel 150 feet 88-Not attempted due to medical condition or safety concerns - Bladder and Bowel Bladder continence Bowel continence - Endurance Fair - Balance Fair - Safety Awareness Fair [facility]RENT [facility]. DEFICITS: Self-Care, Mobility, Endurance, Balance, and Safety Awareness SIGNATURE PANEL: (CDT)
[2020-06-08] MEDS: ATORVASTATIN 40 MG TAB PO SCH (20:06)
[2020-06-09] MEDS: NYSTATIN PWDR 100000 UNIT/GM TOP SCH ×2 (07:56→20:00)
[2020-06-09] MEDS: LIDOCAINE 4% PATCH TOP SCH (07:56)
[2020-06-09] MEDS: TRAMADOL HCL 50 MG TAB PO PRN ×2 (08:31→13:10)
[2020-06-09] MEDS: LOSARTAN POTASSIUM 50 MG TABLET PO SCH (08:32)
[2020-06-09] MEDS: FOLIC ACID 1 MG TABLET PO SCH (08:32)
[2020-06-09] MEDS: ASPIRIN EC 81 MG TAB PO SCH (08:32)
[2020-06-09] MEDS: FERROUS SULFATE 325 MG TAB PO SCH (08:32)
[2020-06-09] MEDS: NEBIVOLOL HCL 5 MG TAB PO SCH (08:32)
[2020-06-09] MEDS: MAGNESIUM OXIDE 400 MG TAB PO SCH ×2 (08:32→21:11)
[2020-06-09] MEDS: CYANOCOBALAMIN 1,000 MCG TAB PO SCH (08:32)
[2020-06-09] MEDS: THIAMINE HCL 100 MG TABLET PO SCH (08:32)
[2020-06-09] MEDS: CLOPIDOGREL 75 MG TABLET PO SCH (08:34)
--- NOTE | 2020-06-09 13:11 | P.CNS ---
Date of Consult: 06/09/20 Reason for Consult: Elongated toenails Allergies No Known Allergies Allergy (Unverified 06/02/20 21:43) Home Medications: Aspirin 81 mg PO DAILY 06/02/20 Clopidogrel Bisulfate [Plavix] 75 mg PO DAILY 06/02/20 Ferrous Sulfate [Iron] 325 mg PO DAILY 06/02/20 Nebivolol HCl [Bystolic] 10 mg PO DAILY 06/02/20 Atorvastatin Calcium [Lipitor] 40 mg PO DAILY #30 tablet 06/04/20 Cyanocobalamin (Vitamin B-12) [Vitamin B-12] 1,000 mcg PO DAILY #90 capsule 0 06/04/20 Losartan Potassium [Cozaar*] 50 mg PO DAILY #30 tablet 06/04/20 Thiamine HCl 100 mg PO DAILY #90 tablet 06/04/20 - Past Medical/Surgical History Diabetic: No -: CAD -: Hypertension -: Bladder, prostate, colon cancer,colostomy ,hx of prostectomy -: Colostomy -: Prostatectomy Psychosocial/ Personal History: Patient is retired, lives alone - Family History Father Medical History: Cancer Mother Medical History: Cancer Brother Medical History: Heart disease Sister Medical History: Heart disease - Social History Alcohol use: No CD- Drugs: No Caffeine use: Yes Place of Residence: Home Review of Systems 10-point ROS is otherwise unremarkable Physical Examination Temp Pulse Resp BP Pulse Ox 98.0 F 73 18 165/82 H 96 06/09/20 07:23 06/09/20 08:32 06/09/20 09:31 06/09/20 08:32 06/09/20 09:31 General: Alert, In no apparent distress Cardiovascular: No edema, Abnormal pulses (0/4 dp and pt pulses bilateral, feet cool to the touch) Capillary refill: <2 Seconds Musculoskeletal: No clubbing, No swelling, No contractures, No erythema, No tenderness, No warmth Integumentary: Diabetic ulcer (thickened hypertrophic nails with subungual d ebris x 10) Neurological: Abnormal sensation - Problems (1) Tinea unguium Current Visit: Yes Status: Acute (2) Generalized atherosclerosis Current Visit: Yes Status: Acute Conclusions/Impression: debridement of toenails at bedside
[2020-06-09] MEDS: ENOXAPARIN 40 MG/0.4 ML SQ SCH (17:29)
--- NOTE | 2020-06-09 18:30 | R.PN ---
PROGRESS NOTES ENCOUNTER DATE AND TIME: 06/09/2020 18:27 (CDT) NAME MABLE LUNDBERG DATE OF : 1930 DATE OF ADMISSION: 06/04/2020 17:08 (CDT) CVACHIEF COMPLAINT: Stroke with left sided weakness and dysarthria SUBJECTIVE: Pt denied any depression. Pt denied any Shortness of Breath. WBC is mildly low at 10.9, prealbumin 14.8, Toll Collector 1.31, glu 116. Wheelchair mobility done with moderate assistance, standing in parallel bars. Ambulated 30' with moderate assistance using a rolling walker. VITAL SIGNS Temp: 98.0 SBP/DBP: 165/82 Pulse: 73 Resp: 16 MEDICATION ALLERGIES: No Known Drug Allergies (NKDA) ENVIRONMENTAL ALLERGIES: - Substance Allergies None Known - Other Allergies None Known NURSING: - Shower allowing shower - Bladder care per protocol - Skin care per protocol PRECAUTIONS: - Weight Bearing Precaution WBAT left LE ACTIVITIES OOB only with supervision THERAPIES: - Occupational Therapy Cognitive Retraining. Visual Perceptual Training. - Dietary and Nutrition Adequate Nutrition. Nutritional Education. Nutritional Supplements. - Speech Therapy Cognitive Training. Expressive Language Skills. Memory Strategies. Receptive Language Skills. Speech Intelligibility Training. PHYSICAL EXAM - Gen Alert and awake Lying in bed No apparent distress Oriented to: person, time, and place - Skin No skin breakdown. Atraumatic - Eyes No abnormalities - ENMT No abnormalities - Neck No abnormalities - CVS RRR - Chest Clear - Abd + bowel sounds - GI Soft Deferred - No abnormalities - Ext No significant edema - MSK Right arm and leg weakness, dysarthria. - Neuro Right arm and leg weakness, dysarthria. - Psych No abnormalities ASSESSMENT: Pt. is a 89 yo Right-handed male of unknown race.On 06/02/2020 Pt. presented to [facility] with sudden onset of left-side weakness.On 06/02/2020 he was admitted to [facility] w ith diagnosis CVA.His impairment category is Stroke 01 - Left Body (Right Brain) (01.1).Pre-morbidly , Pt. was independent/mod-I in Balance and Self-Care; and he had good Communication, Locomotion, and Transfers Control.Currently, he has deficits of Locomotion, Balance, Safety Awareness, Transfers Cont rol, Sphincter Control, Self-Care, and Endurance.Pt. is now referred to [facility] for acute in-patient rehabilitation in order to maximize patient's functional independence in ac tivities of daily living, strength, ROM, and mobility.- Rehab Goal Patient has realistic goal of being discharged at assistance level 7-Ind to reside at Home with Fami ly/Relatives. MDM/PLAN: - Physical Therapy Gait dysfunction - to improve, our physical therapists will perform initial evaluation of pt's statu s upon admission and devise an individualized program for Gait Training, and Wheel Chair mobility Inability to transfer - to improve, our physical therapists will perform initial evaluation of pt's status upon admission and devise an individualized program for Bed mobility Need for home safety evaluation - to improve, our physical therapists will perform initial evaluatio n of pt's status upon admission and devise an individualized program for Home Evaluation Need in caregiver upon discharge - to improve, our physical therapists will perform initial evaluati on of pt's status upon admission and devise an individualized program for Caregiver Training New precaution - to improve, our physical therapists will perform initial evaluation of pt's status upon admission and devise an individualized program for Patient precaution education Edema - to improve, our physical therapists will perform initial evaluation of pt's status upon admi ssion and devise an individualized program for Elevation Training, and Lymphedema Therapy Poor balance - to improve, our physical therapists will perform initial evaluation of pt's status up on admission and devise an individualized program for Balance Training Poor endurance - to improve, our physical therapists will perform initial evaluation of pt's status upon admission and devise an individualized program for Endurance Training Weakness - to improve, our physical therapists will perform initial evaluation of pt's status upon a dmission and devise an individualized program for Aquatic Therapy, Neuromuscular Reeducation, and Str engthening Achieving independence - to improve, our physical therapists will perform initial evaluation of pt's status upon admission and devise an individualized program for Community Reintegration Activities - Occupational Therapy ADL deficits - to improve, our occupation therapists will perform initial evaluation of pt's status upon admission and devise an individualized program for Bathing, Bed mobility, Community Reintegratio n, Cooking, Dressing, Eating, Fine Motor Skills, Grooming, Homemaking, Kitchen Mobility, Laundry, Pat ient Education, Safety Awareness, Splinting - Positioning, Transfers(Toilet, Tub, Shower), and Wheel Chair Management Need for animal caretaker - to improve, our occupation therapists will perform initial evaluation of pt's status upon admission and devise an individualized program for Caregiver Training Weakness - to improve, our occupation therapists will perform initial evaluation of pt's status upon admission and devise an individualized program for Aquatic Therapy, Balance, Endurance, UE ROM, and UE strengthening - Other See attached MAR (Medication Administration Record) - Diet Type Continue Regular - Diet - Liquid Texture Continue Regular - Tube Feed Continue N/A - Bladder care per protocol - Weight Bearing Precaution WBAT left LE - Skin care per protocol - Diet - Solid Texture Continue Regular - Shower allowing shower for Dementia, TBI, Stroke, or others FUNCTIONAL STATUS: UPDATED AT WEEKLY TEAM CONFERENCE - Bladder Same accident frequency: 7-Ind - No accidents in the past 7 days - Bowel Same accident frequency: 7-Ind - No accidents in the past 7 days - Walking Same score based on distance walked: 0(N/A) Same score based on distance walked: 1(<=50ft) - Wheelchair Same score based on distance traveled: 0(N/A) FUNCTIONAL STATUS: - Self-Care A. Eating Km B. Grooming sup C. Bathing modA D. Dressing - Upper Vipul E. Dressing - Lower modA F. Toileting Vipul - Sphincter Control G. Bladder control Vipul H. Bowel control Km - Transfers Control I. Bed/Chair/Wheelchair modA J. Toilet modA K. Tub/Shower modA - Locomotion L. Walk/Wheelchair (B) modA M. Stairs ADNO - Communication N. Comprehension (B) sup O. Expression (B) sup - Social Cognition P. Social Interaction Km Q. Problem Solving sup R. Memory sup - Endurance Fair - Balance Poor - Safety Awareness Fair QI SCORES: - Self-Care A. Eating 03-Partial/moderate assistance B. Oral hygiene 03-Partial/moderate assistance C. Toileting hygiene 02-Substantial/maximal assistance E. Shower/bathe self 02-Substantial/maximal assistance F. Upper body dressing 02-Substantial/maximal assistance G. Lower body dressing 02-Substantial/maximal assistance H. Putting on/taking off footwear 88-Not attempted due to medical condition or safety concerns - Mobility A. Roll left and right 03-Partial/moderate assistance B. Sit to lying 03-Partial/moderate assistance C. Lying to sitting on side of bed 03-Partial/moderate assistance D. Sit to stand 03-Partial/moderate assistance E. Chair/[id number]-[id number]-[id number] transfer 03-Partial/moderate assistance F. Toilet transfer 02-Substantial/maximal assistance G. Car transfer 88-Not attempted due to medical condition or safety concerns I. Walk 10 feet 03-Partial/moderate assistance J. Walk 50 feet with two turns 88-Not attempted due to medical condition or safety concerns K. Walk 150 feet 88-Not attempted due to medical condition or safety concerns L. Walking 10 feet on uneven surfaces 88-Not attempted due to medical condition or safety concerns M. 1 step (curb) 88-Not attempted due to medical condition or safety concerns N. 4 steps 88-Not attempted due to medical condition or safety concerns O. 12 steps 88-Not attempted due to medical condition or safety concerns P. Picking up object R. Wheel 50 feet with two turns 88-Not attempted due to medical condition or safety concerns S. Wheel 150 feet 88-Not attempted due to medical condition or safety concerns - Bladder and Bowel Bladder continence Bowel continence - Endurance Fair - Balance Fair - Safety Awareness Fair CURRENT [facility]. DEFICITS: Self-Care, Mobility, Endurance, Balance, and Safety Awareness SIGNATURE PANEL: (CDT)
[2020-06-09] MEDS: ATORVASTATIN 40 MG TAB PO SCH (21:11)
[2020-06-10] MEDS: LOSARTAN POTASSIUM 50 MG TABLET PO SCH (08:00)
[2020-06-10] MEDS: ASPIRIN EC 81 MG TAB PO SCH (09:03)
[2020-06-10] MEDS: FOLIC ACID 1 MG TABLET PO SCH (09:03)
[2020-06-10] MEDS: ACETAMINOPHEN 500 MG TAB PO PRN (09:04)
[2020-06-10] MEDS: NEBIVOLOL HCL 5 MG TAB PO SCH (09:04)
[2020-06-10] MEDS: CLOPIDOGREL 75 MG TABLET PO SCH (09:04)
[2020-06-10] MEDS: THIAMINE HCL 100 MG TABLET PO SCH (09:05)
[2020-06-10] MEDS: CYANOCOBALAMIN 1,000 MCG TAB PO SCH (09:12)
[2020-06-10] MEDS: FERROUS SULFATE 325 MG TAB PO SCH (09:18)
[2020-06-10] MEDS: LIDOCAINE 4% PATCH TOP SCH (09:19)
[2020-06-10] MEDS: MAGNESIUM OXIDE 400 MG TAB PO SCH ×2 (09:19→19:01)
[2020-06-10] MEDS: NYSTATIN PWDR 100000 UNIT/GM TOP SCH ×2 (12:18→19:00)
[2020-06-10] MEDS: ENOXAPARIN 40 MG/0.4 ML SQ SCH (17:30)
--- NOTE | 2020-06-10 18:29 | R.PN ---
PROGRESS NOTES ENCOUNTER DATE AND TIME: 06/10/2020 18:26 (CDT) NAME MABLE LUNDBERG DATE OF : 1930 DATE OF ADMISSION: 06/04/2020 17:08 (CDT) CVACHIEF COMPLAINT: Stroke with left sided weakness and dysarthria SUBJECTIVE: Pt denied any depression. Pt denied any Shortness of Breath. WBC is mildly low at 10.9, prealbumin 14.8, Junior Data Analyst 1.31, glu 116. Wheelchair mobility done with moderate assistance, standing in parallel bars. Ambulated 50' with moderate assistance using a rolling walker. VITAL SIGNS Temp: 97.1 F SBP/DBP: 96 to 166/68 to 95 Pulse: 90 Resp: 16 MEDICATION ALLERGIES: No Known Drug Allergies (NKDA) ENVIRONMENTAL ALLERGIES: - Substance Allergies None Known - Other Allergies None Known NURSING: - Shower allowing shower - Bladder care per protocol - Skin care per protocol PRECAUTIONS: - Weight Bearing Precaution WBAT left LE ACTIVITIES OOB only with supervision THERAPIES: - Occupational Therapy Cognitive Retraining. Visual Perceptual Training. - Dietary and Nutrition Adequate Nutrition. Nutritional Education. Nutritional Supplements. - Speech Therapy Cognitive Training. Expressive Language Skills. Memory Strategies. Receptive Language Skills. Speech Intelligibility Training. PHYSICAL EXAM - Gen Alert and awake Lying in bed No apparent distress Oriented to: person, time, and place - Skin No skin breakdown. Atraumatic - Eyes No abnormalities - ENMT No abnormalities - Neck No abnormalities - CVS RRR - Chest Clear - Abd + bowel sounds - GI Soft Deferred - No abnormalities - Ext No significant edema - MSK Right arm and leg weakness, dysarthria. - Neuro Right arm and leg weakness, dysarthria. - Psych No abnormalities ASSESSMENT: Pt. is a 89 yo Right-handed male of unknown race.On 06/02/2020 Pt. presented to [facility] with sudden onset of left-side weakness.On 06/02/2020 he was admitted to [facility] w ith diagnosis CVA.His impairment category is Stroke 01 - Left Body (Right Brain) (01.1).Pre-morbidly , Pt. was independent/mod-I in Balance and Self-Care; and he had good Communication, Locomotion, and Transfers Control.Currently, he has deficits of Locomotion, Balance, Safety Awareness, Transfers Cont rol, Sphincter Control, Self-Care, and Endurance.Pt. is now referred to [facility] for acute in-patient rehabilitation in order to maximize patient's functional independence in ac tivities of daily living, strength, ROM, and mobility.- Rehab Goal Patient has realistic goal of being discharged at assistance level 7-Ind to reside at Home with Fami ly/Relatives. MDM/PLAN: - Physical Therapy Gait dysfunction - to improve, our physical therapists will perform initial evaluation of pt's statu s upon admission and devise an individualized program for Gait Training, and Wheel Chair mobility Inability to transfer - to improve, our physical therapists will perform initial evaluation of pt's status upon admission and devise an individualized program for Bed mobility Need for home safety evaluation - to improve, our physical therapists will perform initial evaluatio n of pt's status upon admission and devise an individualized program for Home Evaluation Need in caregiver upon discharge - to improve, our physical therapists will perform initial evaluati on of pt's status upon admission and devise an individualized program for Caregiver Training New precaution - to improve, our physical therapists will perform initial evaluation of pt's status upon admission and devise an individualized program for Patient precaution education Edema - to improve, our physical therapists will perform initial evaluation of pt's status upon admi ssion and devise an individualized program for Elevation Training, and Lymphedema Therapy Poor balance - to improve, our physical therapists will perform initial evaluation of pt's status up on admission and devise an individualized program for Balance Training Poor endurance - to improve, our physical therapists will perform initial evaluation of pt's status upon admission and devise an individualized program for Endurance Training Weakness - to improve, our physical therapists will perform initial evaluation of pt's status upon a dmission and devise an individualized program for Aquatic Therapy, Neuromuscular Reeducation, and Str engthening Achieving independence - to improve, our physical therapists will perform initial evaluation of pt's status upon admission and devise an individualized program for Community Reintegration Activities - Occupational Therapy ADL deficits - to improve, our occupation therapists will perform initial evaluation of pt's status upon admission and devise an individualized program for Bathing, Bed mobility, Community Reintegratio n, Cooking, Dressing, Eating, Fine Motor Skills, Grooming, Homemaking, Kitchen Mobility, Laundry, Pat ient Education, Safety Awareness, Splinting - Positioning, Transfers(Toilet, Tub, Shower), and Wheel Chair Management Need for pharmacist critical care - to improve, our occupation therapists will perform initial evaluation of pt's status upon admission and devise an individualized program for Caregiver Training Weakness - to improve, our occupation therapists will perform initial evaluation of pt's status upon admission and devise an individualized program for Aquatic Therapy, Balance, Endurance, UE ROM, and UE strengthening - Other See attached MAR (Medication Administration Record) - Diet Type Continue Regular - Diet - Liquid Texture Continue Regular - Tube Feed Continue N/A - Bladder care per protocol - Weight Bearing Precaution WBAT left LE - Skin care per protocol - Diet - Solid Texture Continue Regular - Shower allowing shower for Dementia, TBI, Stroke, or others FUNCTIONAL STATUS: UPDATED AT WEEKLY TEAM CONFERENCE - Bladder Same accident frequency: 7-Ind - No accidents in the past 7 days - Bowel Same accident frequency: 7-Ind - No accidents in the past 7 days - Walking Same score based on distance walked: 0(N/A) Same score based on distance walked: 1(<=50ft) - Wheelchair Same score based on distance traveled: 0(N/A) FUNCTIONAL STATUS: - Self-Care A. Eating Km B. Grooming sup C. Bathing modA D. Dressing - Upper Vipul E. Dressing - Lower modA F. Toileting Vipul - Sphincter Control G. Bladder control Vipul H. Bowel control Km - Transfers Control I. Bed/Chair/Wheelchair modA J. Toilet modA K. Tub/Shower modA - Locomotion L. Walk/Wheelchair (B) modA M. Stairs ADNO - Communication N. Comprehension (B) sup O. Expression (B) sup - Social Cognition P. Social Interaction Km Q. Problem Solving sup R. Memory sup - Endurance Fair - Balance Poor - Safety Awareness Fair QI SCORES: - Self-Care A. Eating 03-Partial/moderate assistance B. Oral hygiene 03-Partial/moderate assistance C. Toileting hygiene 02-Substantial/maximal assistance E. Shower/bathe self 02-Substantial/maximal assistance F. Upper body dressing 02-Substantial/maximal assistance G. Lower body dressing 02-Substantial/maximal assistance H. Putting on/taking off footwear 88-Not attempted due to medical condition or safety concerns - Mobility A. Roll left and right 03-Partial/moderate assistance B. Sit to lying 03-Partial/moderate assistance C. Lying to sitting on side of bed 03-Partial/moderate assistance D. Sit to stand 03-Partial/moderate assistance E. Chair/[id number]-[id number] transfer 03-Partial/moderate assistance F. Toilet transfer 02-Substantial/maximal assistance G. Car transfer 88-Not attempted due to medical condition or safety concerns I. Walk 10 feet 03-Partial/moderate assistance J. Walk 50 feet with two turns 88-Not attempted due to medical condition or safety concerns K. Walk 150 feet 88-Not attempted due to medical condition or safety concerns L. Walking 10 feet on uneven surfaces 88-Not attempted due to medical condition or safety concerns M. 1 step (curb) 88-Not attempted due to medical condition or safety concerns N. 4 steps 88-Not attempted due to medical condition or safety concerns O. 12 steps 88-Not attempted due to medical condition or safety concerns P. Picking up object R. Wheel 50 feet with two turns 88-Not attempted due to medical condition or safety concerns S. Wheel 150 feet 88-Not attempted due to medical condition or safety concerns - Bladder and Bowel Bladder continence Bowel continence - Endurance Fair - Balance Fair - Safety Awareness Fair CURRENT [facility]. DEFICITS: Self-Care, Mobility, Endurance, Balance, and Safety Awareness SIGNATURE PANEL: (CDT)
[2020-06-10] MEDS: MELATONIN 3 MG TABLET PO PRN (19:01)
[2020-06-10] MEDS: TRAMADOL HCL 50 MG TAB PO PRN (19:01)
[2020-06-10] MEDS: ATORVASTATIN 40 MG TAB PO SCH (19:01)
[2020-06-11 06:45] LABS: Absolute Lymphocytes (CBC) 0.9 K/uL (0.7-4.9); Basophils % 0.9 % (0-1.3); Hematocrit 34.5 % (39.6-49.0); Lymphocytes % 15.9 % (15.3-44.8); MPV 8.7 fL (7.6-11.3); RBC Red Blood Cell Count 3.52 M/uL (4.33-5.43)
[2020-06-11 07:14] LABS: Albumin 2.9 g/dL (3.4-5.0); Magnesium 2.4 mg/dL (1.8-2.4); Potassium 4.2 mmol/L (3.5-5.1); Prealbumin 12.1 mg/dL (20-40)
[2020-06-11] MEDS: LOSARTAN POTASSIUM 50 MG TABLET PO SCH (08:00)
[2020-06-11] MEDS: NEBIVOLOL HCL 5 MG TAB PO SCH (08:00)
[2020-06-11] MEDS: LIDOCAINE 4% PATCH TOP SCH (08:36)
[2020-06-11] MEDS: ASPIRIN EC 81 MG TAB PO SCH (08:36)
[2020-06-11] MEDS: FOLIC ACID 1 MG TABLET PO SCH (08:36)
[2020-06-11] MEDS: CYANOCOBALAMIN 1,000 MCG TAB PO SCH (08:37)
[2020-06-11] MEDS: ACETAMINOPHEN 500 MG TAB PO PRN (08:37)
[2020-06-11] MEDS: MAGNESIUM OXIDE 400 MG TAB PO SCH ×2 (08:38→20:00)
[2020-06-11] MEDS: FERROUS SULFATE 325 MG TAB PO SCH (08:38)
[2020-06-11] MEDS: CLOPIDOGREL 75 MG TABLET PO SCH (08:38)
[2020-06-11] MEDS: THIAMINE HCL 100 MG TABLET PO SCH (08:38)
[2020-06-11] MEDS: NYSTATIN PWDR 100000 UNIT/GM TOP SCH ×2 (10:50→20:00)
[2020-06-11] MEDS ORDERED: METHYL SALICYLATE/MENTHOL 3 OZ TUBE TOP PRN (14:12)
[2020-06-11] MEDS: ENOXAPARIN 40 MG/0.4 ML SQ SCH (16:51)
--- NOTE | 2020-06-11 20:01 | R.PN ---
PROGRESS NOTES ENCOUNTER DATE AND TIME: 06/11/2020 19:59 (CDT) NAME MABLE LUNDBERG DATE OF : 1930 DATE OF ADMISSION: 06/04/2020 17:08 (CDT) CVACHIEF COMPLAINT: Stroke with left sided weakness and dysarthria SUBJECTIVE: Pt denied any depression. Pt denied any Shortness of Breath. 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 Wheelchair mobility done with moderate assistance, standing in parallel bars. Ambulated 55' with moderate assistance using a rolling walker. VITAL SIGNS Temp: 97.2 F SBP/DBP: 95/50 Pulse: 73 Resp: 15 MEDICATION ALLERGIES: No Known Drug Allergies (NKDA) ENVIRONMENTAL ALLERGIES: - Substance Allergies None Known - Other Allergies None Known NURSING: - Shower allowing shower - Bladder care per protocol - Skin care per protocol PRECAUTIONS: - Weight Bearing Precaution WBAT left LE ACTIVITIES OOB only with supervision THERAPIES: - Occupational Therapy Cognitive Retraining. Visual Perceptual Training. - Dietary and Nutrition Adequate Nutrition. Nutritional Education. Nutritional Supplements. - Speech Therapy Cognitive Training. Expressive Language Skills. Memory Strategies. Receptive Language Skills. Speech Intelligibility Training. PHYSICAL EXAM - Gen Alert and awake Lying in bed No apparent distress Oriented to: person, time, and place - Skin No skin breakdown. Atraumatic - Eyes No abnormalities - ENMT No abnormalities - Neck No abnormalities - CVS RRR - Chest Clear - Abd + bowel sounds - GI Soft Deferred - No abnormalities - Ext No significant edema - MSK Right arm and leg weakness, dysarthria. - Neuro Right arm and leg weakness, dysarthria. - Psych No abnormalities ASSESSMENT: Pt. is a 89 yo Right-handed male of unknown race.On 06/02/2020 Pt. presented to [facility] with sudden onset of left-side weakness.On 06/02/2020 he was admitted to [facility] w ith diagnosis CVA.His impairment category is Stroke 01 - Left Body (Right Brain) (01.1).Pre-morbidly , Pt. was independent/mod-I in Balance and Self-Care; and he had good Communication, Locomotion, and Transfers Control.Currently, he has deficits of Locomotion, Balance, Safety Awareness, Transfers Cont rol, Sphincter Control, Self-Care, and Endurance.Pt. is now referred to [facility] for acute in-patient rehabilitation in order to maximize patient's functional independence in ac tivities of daily living, strength, ROM, and mobility.- Rehab Goal Patient has realistic goal of being discharged at assistance level 7-Ind to reside at Home with Fami ly/Relatives. MDM/PLAN: - Physical Therapy Gait dysfunction - to improve, our physical therapists will perform initial evaluation of pt's statu s upon admission and devise an individualized program for Gait Training, and Wheel Chair mobility Inability to transfer - to improve, our physical therapists will perform initial evaluation of pt's status upon admission and devise an individualized program for Bed mobility Need for home safety evaluation - to improve, our physical therapists will perform initial evaluatio n of pt's status upon admission and devise an individualized program for Home Evaluation Need in caregiver upon discharge - to improve, our physical therapists will perform initial evaluati on of pt's status upon admission and devise an individualized program for Caregiver Training New precaution - to improve, our physical therapists will perform initial evaluation of pt's status upon admission and devise an individualized program for Patient precaution education Edema - to improve, our physical therapists will perform initial evaluation of pt's status upon admi ssion and devise an individualized program for Elevation Training, and Lymphedema Therapy Poor balance - to improve, our physical therapists will perform initial evaluation of pt's status up on admission and devise an individualized program for Balance Training Poor endurance - to improve, our physical therapists will perform initial evaluation of pt's status upon admission and devise an individualized program for Endurance Training Weakness - to improve, our physical therapists will perform initial evaluation of pt's status upon a dmission and devise an individualized program for Aquatic Therapy, Neuromuscular Reeducation, and Str engthening Achieving independence - to improve, our physical therapists will perform initial evaluation of pt's status upon admission and devise an individualized program for Community Reintegration Activities - Occupational Therapy ADL deficits - to improve, our occupation therapists will perform initial evaluation of pt's status upon admission and devise an individualized program for Bathing, Bed mobility, Community Reintegratio n, Cooking, Dressing, Eating, Fine Motor Skills, Grooming, Homemaking, Kitchen Mobility, Laundry, Pat ient Education, Safety Awareness, Splinting - Positioning, Transfers(Toilet, Tub, Shower), and Wheel Chair Management Need for care assistant - to improve, our occupation therapists will perform initial evaluation of pt's status upon admission and devise an individualized program for Caregiver Training Weakness - to improve, our occupation therapists will perform initial evaluation of pt's status upon admission and devise an individualized program for Aquatic Therapy, Balance, Endurance, UE ROM, and UE strengthening - Other See attached MAR (Medication Administration Record) - Diet Type Continue Regular - Diet - Liquid Texture Continue Regular - Tube Feed Continue N/A - Bladder care per protocol - Weight Bearing Precaution WBAT left LE - Skin care per protocol - Diet - Solid Texture Continue Regular - Shower allowing shower for Dementia, TBI, Stroke, or others FUNCTIONAL STATUS: UPDATED AT WEEKLY TEAM CONFERENCE - Bladder Same accident frequency: 7-Ind - No accidents in the past 7 days - Bowel Same accident frequency: 7-Ind - No accidents in the past 7 days - Walking Same score based on distance walked: 0(N/A) Same score based on distance walked: 1(<=50ft) - Wheelchair Same score based on distance traveled: 0(N/A) FUNCTIONAL STATUS: - Self-Care A. Eating Km B. Grooming sup C. Bathing modA D. Dressing - Upper Vipul E. Dressing - Lower modA F. Toileting Vipul - Sphincter Control G. Bladder control Vipul H. Bowel control Km - Transfers Control I. Bed/Chair/Wheelchair modA J. Toilet modA K. Tub/Shower modA - Locomotion L. Walk/Wheelchair (B) modA M. Stairs ADNO - Communication N. Comprehension (B) sup O. Expression (B) sup - Social Cognition P. Social Interaction Km Q. Problem Solving sup R. Memory sup - Endurance Fair - Balance Poor - Safety Awareness Fair QI SCORES: - Self-Care A. Eating 03-Partial/moderate assistance B. Oral hygiene 03-Partial/moderate assistance C. Toileting hygiene 02-Substantial/maximal assistance E. Shower/bathe self 02-Substantial/maximal assistance F. Upper body dressing 02-Substantial/maximal assistance G. Lower body dressing 02-Substantial/maximal assistance H. Putting on/taking off footwear 88-Not attempted due to medical condition or safety concerns - Mobility A. Roll left and right 03-Partial/moderate assistance B. Sit to lying 03-Partial/moderate assistance C. Lying to sitting on side of bed 03-Partial/moderate assistance D. Sit to stand 03-Partial/moderate assistance E. Chair/[id number] transfer 03-Partial/moderate assistance F. Toilet transfer 02-Substantial/maximal assistance G. Car transfer 88-Not attempted due to medical condition or safety concerns I. Walk 10 feet 03-Partial/moderate assistance J. Walk 50 feet with two turns 88-Not attempted due to medical condition or safety concerns K. Walk 150 feet 88-Not attempted due to medical condition or safety concerns L. Walking 10 feet on uneven surfaces 88-Not attempted due to medical condition or safety concerns M. 1 step (curb) 88-Not attempted due to medical condition or safety concerns N. 4 steps 88-Not attempted due to medical condition or safety concerns O. 12 steps 88-Not attempted due to medical condition or safety concerns P. Picking up object R. Wheel 50 feet with two turns 88-Not attempted due to medical condition or safety concerns S. Wheel 150 feet 88-Not attempted due to medical condition or safety concerns - Bladder and Bowel Bladder continence Bowel continence - Endurance Fair - Balance Fair - Safety Awareness Fair CURRENT [facility]. DEFICITS: Self-Care, Mobility, Endurance, Balance, and Safety Awareness SIGNATURE PANEL: (CDT)
[2020-06-11] MEDS: DULOXETINE 20 MG CAP PO SCH (20:20)
[2020-06-11] MEDS: DOCUSATE NA 100 MG CAP PO SCH (20:20)
[2020-06-11] MEDS: TRAMADOL HCL 50 MG TAB PO PRN (20:20)
[2020-06-11] MEDS: LIDOCAINE 5% OINT 30 GM TUBE TOP SCH (20:21)
[2020-06-11] MEDS: ATORVASTATIN 40 MG TAB PO SCH (20:21)
[2020-06-11] MEDS: MELATONIN 5 MG TABLET PO PRN (20:22)
[2020-06-12] MEDS: NEBIVOLOL HCL 5 MG TAB PO SCH (07:47)
[2020-06-12] MEDS: FOLIC ACID 1 MG TABLET PO SCH (07:47)
[2020-06-12] MEDS: FERROUS SULFATE 325 MG TAB PO SCH (07:48)
[2020-06-12] MEDS: MAGNESIUM OXIDE 400 MG TAB PO SCH ×2 (07:48→21:11)
[2020-06-12] MEDS: ASPIRIN EC 81 MG TAB PO SCH (07:48)
[2020-06-12] MEDS: CLOPIDOGREL 75 MG TABLET PO SCH (07:48)
[2020-06-12] MEDS: DOCUSATE NA 100 MG CAP PO SCH ×2 (07:48→21:11)
[2020-06-12] MEDS: THIAMINE HCL 100 MG TABLET PO SCH (07:49)
[2020-06-12] MEDS: CYANOCOBALAMIN 1,000 MCG TAB PO SCH (07:49)
[2020-06-12] MEDS: LOSARTAN POTASSIUM 50 MG TABLET PO SCH (09:27)
--- NOTE | 2020-06-12 09:54 | P.RH.PN ---
Estimated Length of Stay: 14 Expected Discharge Date: 06/21/20 Discharge Disposition Plan: Home Family Support: Yes Usp Goal: Mobility, Transfers, Self Care Vital Signs: Last Vital Signs Temp 97.2 F 06/12/20 09:09 Pulse 64 06/12/20 09:09 Resp 16 06/12/20 09:09 BP 165/72 H 06/12/20 09:09 Pulse Ox 97 06/12/20 09:09 Laboratory: Laboratory Last Values WBC 5.60 K/uL (4.3-10.9) 06/11/20 05:56 RBC 3.52 M/uL (4.33-5.43) L 06/11/20 05:56 Hgb 11.5 g/dL (13.6-17.9) L 06/11/20 05:56 Hct 34.5 % (39.6-49.0) L 06/11/20 05:56 MCV 97.9 fL (80-100) 06/11/20 05:56 MCH 32.6 pg (27.0-35.0) 06/11/20 05:56 MCHC 33.3 g/dL (32.0-36.0) 06/11/20 05:56 RDW 13.8 % (12.1-15.2) 06/11/20 05:56 Plt Count 196 K/uL (152-406) D 06/11/20 05:56 MPV 8.7 fL (7.6-11.3) 06/11/20 05:56 Neutrophils % 66.5 % (41.7-73.7) 06/11/20 05:56 Lymphocytes % 15.9 % (15.3-44.8) 06/11/20 05:56 Monocytes % 13.0 % (3.3-12.3) H 06/11/20 05:56 Eosinophils % 3.7 % (0-4.4) 06/11/20 05:56 Basophils % 0.9 % (0-1.3) 06/11/20 05:56 Absolute Neutrophils 3.7 K/uL (1.8-8.0) 06/11/20 05:56 Absolute Lymphocytes 0.9 K/uL (0.7-4.9) 06/11/20 05:56 Absolute Monocytes 0.7 K/uL (0.1-1.3) 06/11/20 05:56 Absolute Eosinophils 0.2 K/uL (0-0.5) 06/11/20 05:56 Absolute Basophils 0.0 K/uL (0-0.5) 06/11/20 05:56 Sodium Cancelled 06/11/20 Unknown Potassium Cancelled 06/11/20 Unknown Chloride Cancelled 06/11/20 Unknown Carbon Dioxide Cancelled 06/11/20 Unknown BUN Cancelled 06/11/20 Unknown Creatinine Cancelled 06/11/20 Unknown Estimated GFR Cancelled 06/11/20 Unknown Glucose Cancelled 06/11/20 Unknown Calcium Cancelled 06/11/20 Unknown Magnesium 2.4 mg/dL (1.8-2.4) D 06/11/20 05:56 Albumin 2.9 g/dL (3.4-5.0) L 06/11/20 05:56 Prealbumin 12.1 mg/dL (20-40) L 06/11/20 05:56 Urine Color Yellow (Yellow) 06/04/20 21:15 Urine Appearance Clear (Clear) 06/04/20 21:15 Urine pH 6.0 (5.0-7.0) 06/04/20 21:15 Ur Specific [place] 1.010 (1.005-1.030) 06/04/20 21:15 Glucose (UA)(Auto) Negative (Negative) 06/04/20 21:15 Urine Ketones Negative (Negative) 06/04/20 21:15 Urine Blood Negative (Negative) 06/04/20 21:15 Urine Nitrite Negative (Negative) 06/04/20 21:15 Urine Bilirubin Negative (Negative) 06/04/20 21:15 Urine Urobilinogen 0.2 mg/dL (0.2-1.0) 06/04/20 21:15 Ur Leukocyte Esterase Negative (Negative) 06/04/20 21:15 Urine RBC <5 /HPF (NONE SEEN) 06/04/20 21:15 Urine WBC <5 /HPF (<5) 06/04/20 21:15 Ur Squamous Epith Cells <5 /HPF (NONE SEEN) 06/04/20 21:15 Urine Bacteria <20 /HPF (NONE SEEN) 06/04/20 21:15 Urine Culture Reflexed Not needed 06/04/20 21:15 Urine Total Protein Negative (Negative) 06/04/20 21:15 Weight: 214 lb 9.6 oz Within Defined Parameters: No Right Abdomen Skin Alteration: Dermatitis due to Incontinence Skin Temperature: Cool Skin Color: Normal Skin Tone Skin Turgor: Normal Skin Tone: Elastic around the colostomy stoma Skin Alteration: redness Skin Temperature: Cool Skin Color: red Skin Turgor: Normal Skin Tone: Elastic right inner arm Skin Alteration: skin tear/ 2/2 guaze and tegaderm dressing applied. Skin Temperature: Warm Skin Color: Normal Skin Tone Skin Turgor: Poor Skin Tone: Loose Wound Present: No Closed Surgical Incision Present: No Negative Pressure Wound Therapy Present: No Physician Update: His labs were and are stable. He had mild swelling of the right dorsum of the hand. He walked 50' with moderate assistance. At max assistance with transfers to chairs and bed. His right leg fatigues easily. He is at max assistance with lower body ADLs. He is at moderate assistance with upper body dressing and showers. Summary: Patient's care plan and manager intermediate goals have been reviewed and revised as necessary. Please see the Rehabilitation Signature page for all necessary signatures.
[2020-06-12] MEDS: LIDOCAINE 5% OINT 30 GM TUBE TOP SCH ×2 (10:01→21:11)
[2020-06-12] MEDS: NYSTATIN PWDR 100000 UNIT/GM TOP SCH ×2 (10:01→21:11)
[2020-06-12] MEDS: LIDOCAINE 4% PATCH TOP SCH (10:01)
[2020-06-12] MEDS: TRAMADOL HCL 50 MG TAB PO PRN (12:17)
[2020-06-12] MEDS: ENOXAPARIN 40 MG/0.4 ML SQ SCH (16:50)
[2020-06-12] MEDS: TRAZODONE 50 MG TABLET PO SCH (21:11)
[2020-06-12] MEDS: DULOXETINE 20 MG CAP PO SCH (21:11)
[2020-06-12] MEDS: ATORVASTATIN 40 MG TAB PO SCH (21:12)
[2020-06-12] MEDS: MELATONIN 5 MG TABLET PO PRN (21:12)
[2020-06-13] MEDS: NYSTATIN PWDR 100000 UNIT/GM TOP SCH ×2 (08:00→20:00)
[2020-06-13] MEDS: CYANOCOBALAMIN 1,000 MCG TAB PO SCH (08:38)
[2020-06-13] MEDS: FERROUS SULFATE 325 MG TAB PO SCH (08:40)
[2020-06-13] MEDS: DOCUSATE NA 100 MG CAP PO SCH ×2 (08:41→20:32)
[2020-06-13] MEDS: ASPIRIN EC 81 MG TAB PO SCH (08:41)
[2020-06-13] MEDS: THIAMINE HCL 100 MG TABLET PO SCH (08:41)
[2020-06-13] MEDS: CLOPIDOGREL 75 MG TABLET PO SCH (08:41)
[2020-06-13] MEDS: NEBIVOLOL HCL 5 MG TAB PO SCH (08:41)
[2020-06-13] MEDS: ACETAMINOPHEN 500 MG TAB PO PRN (08:42)
[2020-06-13] MEDS: LIDOCAINE 4% PATCH TOP SCH (09:48)
[2020-06-13] MEDS: LIDOCAINE 5% OINT 30 GM TUBE TOP SCH ×2 (09:49→20:32)
[2020-06-13] MEDS: FOLIC ACID 1 MG TABLET PO SCH (09:49)
[2020-06-13] MEDS: MAGNESIUM OXIDE 400 MG TAB PO SCH ×2 (09:50→20:32)
[2020-06-13] MEDS: LOSARTAN POTASSIUM 50 MG TABLET PO SCH (12:00)
[2020-06-13] MEDS: ENOXAPARIN 40 MG/0.4 ML SQ SCH (16:18)
[2020-06-13] MEDS: TRAZODONE 50 MG TABLET PO SCH (20:32)
[2020-06-13] MEDS: DULOXETINE 20 MG CAP PO SCH (20:32)
[2020-06-13] MEDS: ATORVASTATIN 40 MG TAB PO SCH (20:32)
[2020-06-14] MEDS ORDERED: DOCUSATE NA 100 MG CAP PO PRN (06:50)
[2020-06-14] MEDS: THIAMINE HCL 100 MG TABLET PO SCH (09:24)
[2020-06-14] MEDS: LIDOCAINE 4% PATCH TOP SCH (09:24)
[2020-06-14] MEDS: MAGNESIUM OXIDE 400 MG TAB PO SCH ×2 (09:25→21:12)
[2020-06-14] MEDS: CLOPIDOGREL 75 MG TABLET PO SCH (09:25)
[2020-06-14] MEDS: ASPIRIN EC 81 MG TAB PO SCH (09:25)
[2020-06-14] MEDS: FOLIC ACID 1 MG TABLET PO SCH (09:25)
[2020-06-14] MEDS: LOSARTAN POTASSIUM 50 MG TABLET PO SCH (09:26)
[2020-06-14] MEDS: FERROUS SULFATE 325 MG TAB PO SCH (09:26)
[2020-06-14] MEDS: NEBIVOLOL HCL 5 MG TAB PO SCH (09:26)
[2020-06-14] MEDS: CYANOCOBALAMIN 1,000 MCG TAB PO SCH (09:27)
[2020-06-14] MEDS: NYSTATIN PWDR 100000 UNIT/GM TOP SCH ×2 (10:00→20:00)
[2020-06-14] MEDS: LIDOCAINE 5% OINT 30 GM TUBE TOP SCH ×2 (10:15→21:12)
--- NOTE | 2020-06-14 15:14 | FAST ---
[employer] FORM SHIFT START DATE/TIME: 06/14/2020 07:00 (CDT) SHIFT END DATE/TIME: 06/14/2020 19:00 (CDT) NAME MABLE LUNDBERG DATE OF : 1930 DATE OF ADMISSION: 06/04/2020 17:08 (CDT) PHONE: AGE: 89 N# [id number] GENDER: Male ENCOUNTER PHYSICIAN: Dr. Cristofer Morgan M.D. ADMISSION DIAGNOSIS: - Stroke 01 - Left Body (Right Brain) (01.1) CVA. EATING: EATING - STEP 1: Does the patient complete the activity by him/herself with no assistance (physical, verbal/nonverbal cueing, setup/clean-up)? No. EATING - STEP 2: Does the patient need only setup/clean-up assistance from one helper? Yes. 1. [id number] ADMISSION PERFORMANCE: Setup or clean-up assistance CODE: 05 ORAL HYGIENE: Patient refused CODE: 07 TOILETING HYGIENE: Not attempted due to medical condition or safety concerns CODE: 88 BATHING: Not assessed/no information CODE: - DRESSING - UPPER BODY: DRESSING - UPPER BODY - STEP 1: Does the patient complete the activity by him/herself with no assistance (physical, verbal/nonverbal cueing, setup/clean-up)? No. DRESSING - UPPER BODY - STEP 2: Does the patient need only setup/clean-up assistance from one helper? No. DRESSING - UPPER BODY - STEP 3: Does the patient need only verbal/nonverbal cueing or touching/steadying/contact guard assistance fro m one helper? No. DRESSING - UPPER BODY - STEP 4: Does the patient need physical assistance - for example lifting or trunk support from one helper - wi th the helper providing less than half of the effort? Yes. 1. [id number] ADMISSION PERFORMANCE: Partial/moderate assistance CODE: 03 DRESSING - LOWER BODY: DRESSING - LOWER BODY - STEP 1: Does the patient complete the activity by him/herself with no assistance (physical, verbal/nonverbal cueing, setup/clean-up)? No. DRESSING - LOWER BODY - STEP 2: Does the patient need only setup/clean-up assistance from one helper? No. DRESSING - LOWER BODY - STEP 3: Does the patient need only verbal/nonverbal cueing or touching/steadying/contact guard assistance fro m one helper? No. DRESSING - LOWER BODY - STEP 4: Does the patient need physical assistance - for example lifting or trunk support from one helper - wi th the helper providing less than half of the effort? No. DRESSING - LOWER BODY - STEP 5: Does the patient need physical assistance - for example lifting or trunk support from one helper - wi th the helper providing more than half of the effort? No. DRESSING - LOWER BODY - STEP 6: Does the helper provide all of the effort? OR Is the assistance of two or more helpers required to co mplete the activity? Yes. 1. [id number] ADMISSION PERFORMANCE: Dependent CODE: 01 PUTTING ON/TAKING OFF FOOTWEAR: FOOTWEAR - STEP 1: Does the patient complete the activity by him/herself with no assistance (physical, verbal/nonverbal cueing, setup/clean-up)? No. FOOTWEAR - STEP 2: Does the patient need only setup/clean-up assistance from one helper? No. FOOTWEAR - STEP 3: Does the patient need only verbal/nonverbal cueing or touching/steadying/contact guard assistance fro m one helper? No. FOOTWEAR - STEP 4: Does the patient need physical assistance - for example lifting or trunk support from one helper - wi th the helper providing less than half of the effort? No. FOOTWEAR - STEP 5: Does the patient need physical assistance - for example lifting or trunk support from one helper - wi th the helper providing more than half of the effort? No. FOOTWEAR - STEP 6: Does the helper provide all of the effort? OR Is the assistance of two or more helpers required to co mplete the activity? Yes. 1. [id number] ADMISSION PERFORMANCE: Dependent CODE: 01 ROLL LEFT AND RIGHT: ROLL LEFT AND RIGHT - STEP 1: Does the patient complete the activity by him/herself with no assistance (physical, verbal/nonverbal cueing, setup/clean-up)? No. ROLL LEFT AND RIGHT - STEP 2: Does the patient need only setup/clean-up assistance from one helper? No. ROLL LEFT AND RIGHT - STEP 3: Does the patient need only verbal/nonverbal cueing or touching/steadying/contact guard assistance fro m one helper? Yes. 1. [id number] ADMISSION PERFORMANCE: Supervision or touching assistance CODE: 04 SIT TO LYING: SIT TO LYING - STEP 1: Does the patient complete the activity by him/herself with no assistance (physical, verbal/nonverbal cueing, setup/clean-up)? No. SIT TO LYING - STEP 2: Does the patient need only setup/clean-up assistance from one helper? No. SIT TO LYING - STEP 3: Does the patient need only verbal/nonverbal cueing or touching/steadying/contact guard assistance fro m one helper? No. SIT TO LYING - STEP 4: Does the patient need physical assistance - for example lifting or trunk support from one helper - wi th the helper providing less than half of the effort? No. SIT TO LYING - STEP 5: Does the patient need physical assistance - for example lifting or trunk support from one helper - wi th the helper providing more than half of the effort? No. SIT TO LYING - STEP 6: Does the helper provide all of the effort? OR Is the assistance of two or more helpers required to co mplete the activity? Yes. 1. [id number] ADMISSION PERFORMANCE: Dependent CODE: 01 LYING TO SITTING: LYING TO SITTING ON SIDE OF BED - STEP 1: Does the patient complete the activity by him/herself with no assistance (physical, verbal/nonverbal cueing, setup/clean-up)? No. LYING TO SITTING ON SIDE OF BED - STEP 2: Does the patient need only setup/clean-up assistance from one helper? No. LYING TO SITTING ON SIDE OF BED - STEP 3: Does the patient need only verbal/nonverbal cueing or touching/steadying/contact guard assistance fro m one helper? No. LYING TO SITTING ON SIDE OF BED - STEP 4: Does the patient need physical assistance - for example lifting or trunk support from one helper - wi th the helper providing less than half of the effort? No. LYING TO SITTING ON SIDE OF BED - STEP 5: Does the patient need physical assistance - for example lifting or trunk support from one helper - wi th the helper providing more than half of the effort? No. LYING TO SITTING ON SIDE OF BED - STEP 6: Does the helper provide all of the effort? OR Is the assistance of two or more helpers required to co mplete the activity? Yes. 1. [id number] ADMISSION PERFORMANCE: Dependent CODE: 01 SIT TO STAND: SIT TO STAND - STEP 1: Does the patient complete the activity by him/herself with no assistance (physical, verbal/nonverbal cueing, setup/clean-up)? No. SIT TO STAND - STEP 2: Does the patient need only setup/clean-up assistance from one helper? No. SIT TO STAND - STEP 3: Does the patient need only verbal/nonverbal cueing or touching/steadying/contact guard assistance fro m one helper? No. SIT TO STAND - STEP 4: Does the patient need physical assistance - for example lifting or trunk support from one helper - wi th the helper providing less than half of the effort? No. SIT TO STAND - STEP 5: Does the patient need physical assistance - for example lifting or trunk support from one helper - wi th the helper providing more than half of the effort? No. SIT TO STAND - STEP 6: Does the helper provide all of the effort? OR Is the assistance of two or more helpers required to co mplete the activity? Yes. 1. [id number] ADMISSION PERFORMANCE: Dependent CODE: 01 TRANSFERS: BED, CHAIR: CHAIR/[id number] TRANSFER - STEP 1: Does the patient complete the activity by him/herself with no assistance (physical, verbal/nonverbal cueing, setup/clean-up)? No. CHAIR/[id number] TRANSFER - STEP 2: Does the patient need only setup/clean-up assistance from one helper? No. CHAIR/[id number] TRANSFER - STEP 3: Does the patient need only verbal/nonverbal cueing or touching/steadying/contact guard assistance fro m one helper? No. CHAIR/[id number] TRANSFER - STEP 4: Does the patient need physical assistance - for example lifting or trunk support from one helper - wi th the helper providing less than half of the effort? No. CHAIR/[id number] TRANSFER - STEP 5: Does the patient need physical assistance - for example lifting or trunk support from one helper - wi th the helper providing more than half of the effort? No. CHAIR/[id number] TRANSFER - STEP 6: Does the helper provide all of the effort? OR Is the assistance of two or more helpers required to co mplete the activity? Yes. 1. [id number] ADMISSION PERFORMANCE: Dependent CODE: TRANSFER TOILET: Not attempted due to medical condition or safety concerns CODE: 88 TRANSFERS: CAR: Not assessed/no information CODE: - WALK 10 FEET: Not assessed/no information CODE: - 1 STEP (CURB): Not assessed/no information CODE: - PICKING UP OBJECT: Not assessed/no information CODE: - DOES THE PATIENT USE A WHEELCHAIR/SCOOTER? Q1. DOES THE PATIENT USE A WHEELCHAIR/SCOOTER?: Yes CODE: 1 WHEEL 50 FEET WITH TWO TURNS: Not attempted due to medical condition or safety concerns CODE: 88 INDICATE THE TYPE OF WHEELCHAIR/SCOOTER USED: RR1. INDICATE THE TYPE OF WHEELCHAIR/SCOOTER USED.: Manual CODE: 1 WHEEL 150 FEET: Not attempted due to medical condition or safety concerns CODE: 88 INDICATE THE TYPE OF WHEELCHAIR/SCOOTER USED: SS1. INDICATE THE TYPE OF WHEELCHAIR/SCOOTER USED.: Manual CODE: 1 BLADDER AND BOWEL: H350. BLADDER CONTINENCE (3-DAY ASSESSMENT PERIOD): Incontinent daily (at least once a day) CODE: 3 H400. BOWEL CONTINENCE (3-DAY ASSESSMENT PERIOD): Not rated, patient had an ostomy or did not have a bowel movement for the entire 3 days CODE: 9 SIGNATURE PANEL: The following modified sections: 1. [id number] Admission Performance, 1. [id number] Admission Performance, 1. [id number] Admission Performance, 1. FK2050a Admission Performance, 1. [id number] Admission Performance, 1. [id number] Admission Performance, 1. [id number] Admission Performance, 1. [id number] Admission Performance , 1. [id number] Admission Performance, 1. [id number] Admission Performance, 1. [id number] Admission Performanc e, 1. [id number] Admission Performance, Q1. Does the patient use a wheelchair/scooter?, RR1. Indicate th e type of wheelchair/scooter used., Code, SS1. Indicate the type of wheelchair/scooter used., H350. B ladder Continence (3-day assessment period), H400. Bowel Continence (3-day assessment period) were [e lectronically] signed by Paradise Rodarte C.N.A. on MonJun 14 2020 15:13:22 T-0500 (Central Daylight Time)
[2020-06-14] MEDS: ENOXAPARIN 40 MG/0.4 ML SQ SCH (16:28)
[2020-06-14] MEDS: DULOXETINE 20 MG CAP PO SCH (21:12)
[2020-06-14] MEDS: ATORVASTATIN 40 MG TAB PO SCH (21:12)
[2020-06-14] MEDS: TRAZODONE 50 MG TABLET PO SCH (21:12)
[2020-06-15 06:46] LABS: Potassium 4.5 mmol/L (3.5-5.1)
[2020-06-15] MEDS: TRAMADOL HCL 50 MG TAB PO PRN ×2 (08:20→19:40)
[2020-06-15] MEDS: CYANOCOBALAMIN 1,000 MCG TAB PO SCH (08:21)
[2020-06-15] MEDS: FOLIC ACID 1 MG TABLET PO SCH (08:21)
[2020-06-15] MEDS: LOSARTAN POTASSIUM 50 MG TABLET PO SCH (08:21)
[2020-06-15] MEDS: THIAMINE HCL 100 MG TABLET PO SCH (08:21)
[2020-06-15] MEDS: MAGNESIUM OXIDE 400 MG TAB PO SCH ×3 (08:21→20:00)
[2020-06-15] MEDS: NEBIVOLOL HCL 5 MG TAB PO SCH (08:21)
[2020-06-15] MEDS: FERROUS SULFATE 325 MG TAB PO SCH (08:22)
[2020-06-15] MEDS: CLOPIDOGREL 75 MG TABLET PO SCH (08:22)
[2020-06-15] MEDS: ASPIRIN EC 81 MG TAB PO SCH (08:22)
[2020-06-15] MEDS: LIDOCAINE 4% PATCH TOP SCH (09:44)
[2020-06-15] MEDS: LIDOCAINE 5% OINT 30 GM TUBE TOP SCH ×2 (09:44→19:39)
[2020-06-15] MEDS: NYSTATIN PWDR 100000 UNIT/GM TOP SCH ×2 (09:45→19:39)
[2020-06-15 12:10] LABS: Basophils % 1.2 % (0-1.3); Hematocrit 37.7 % (39.6-49.0); Lymphocytes % 12.3 % (15.3-44.8); MPV 8.3 fL (7.6-11.3); RBC Red Blood Cell Count 3.92 M/uL (4.33-5.43)
[2020-06-15 12:24] LABS: Potassium 4.9 mmol/L (3.5-5.1)
--- NOTE | 2020-06-15 13:01 | RAD REPORT ---
EXAM DESCRIPTION: CT - Head Brain Wo Cont - 06/15/2020 11:30 am CLINICAL HISTORY: altered mental status, right-sided weakness COMPARISON: Head Brain Wo Cont dated 06/05/2020; Chest Single View dated 06/15/2020 TECHNIQUE: Axial 5 mm thick images of the head were obtained without IV contrast. All CT scans are performed using dose optimization technique as appropriate and may include automated exposure control or mA/KV adjustment according to patient size. FINDINGS: No intracranial hemorrhage, mass, edema or shift of mid-line structures. No acute cortical based infarction. No cortical edema or sulcal effacement. Atrophy pattern matches the June 05 study . Ventricles are in proportion to volume loss. Chronic ischemic changes are scattered in the cerebral white matter and to a lesser degree the basal ganglia and thalamus tissues. Chronic ischemic changes are evident in the left side of the christ and midbrain. These findings are similar to the June 05 st udy. No clearly new intracranial process identifiable. Mastoid air cells and visualized portions of the paranasal sinuses are clear. No acute bony findings. Findings telephoned to Dr. Morgan 11:39 a.m. IMPRESSION: No intracranial hemorrhage present. Patient's atrophy and chronic ischemic pattern is no t clearly different from June 05 imaging.
--- NOTE | 2020-06-15 13:17 | RAD REPORT ---
EXAM DESCRIPTION: RAD - Chest Single View - 06/15/2020 11:43 am CLINICAL HISTORY: altered mental status, code stroke chest film COMPARISON: June 02 TECHNIQUE: AP portable chest image was obtained 06/15/2020 11:43 am . FINDINGS: Lung volumes are low. No acute lung parenchymal process. No failure or volume overload. He art and vasculature are normal. No measurable pleural effusion and no pneumothorax. No acute bony abn ormality seen. No acute aortic findings suspected. IMPRESSION: No acute cardiopulmonary process. No significant change from comparison study.
--- NOTE | 2020-06-15 15:28 | RAD REPORT ---
EXAM DESCRIPTION: RAD - Barium Swallow Modified - 06/15/2020 3:14 pm CLINICAL HISTORY: R/O aspiration Dysphagia, history of CVA COMPARISON: Renal Ultrasound-Complete dated 06/03/2020 TECHNIQUE: The patient was given liquid, semi-solid and solid forms of barium. Lateral view fluorosc opic imaging was performed in conjunction with speech pathology service. FINDINGS: Laryngeal penetration: not cleared with all consistencies Aspiration: NO cough with thin, nectar, honey, puree. Severe pharyngeal residue in the vallecular, pyriform and posterior wall with all consistencies. Nasal regurgitation with pharyngeal residues. Delayed swallow (4-5 seconds) Total fluoroscopy time: 5 minutes and 19 seconds
--- NOTE | 2020-06-15 16:26 | RAD REPORT ---
EXAM DESCRIPTION: MRI - Brain Wo Cont - 06/15/2020 4:11 pm CLINICAL HISTORY: R/O STROKE Headache, drowsiness COMPARISON: Head Brain Wo Cont dated 06/15/2020; Brain Wo Cont dated 06/03/2020; MRA Head Wo Cont date d 06/03/2020 TECHNIQUE: Multi-sequence, multiplanar MR imaging of the brain was performed without contrast. FINDINGS: No intracranial hemorrhage, hydrocephalus or extra-axial fluid collections. 11-12 mm area of T2 and FLAIR hyperintensity in the left aspect of the christ is compatible with the patient's known pontine infarct. This area within the christ is demonstrates 19 x 10 mm size on diffusion-weighted imag ing without significant diminished ADC signal, suggesting subacute time frame. The size of this infar ct is significantly larger than on the 06/03/2020 examination. There is no acute CVA seen. Midline structures are normally formed. Mastoid air cells and paranasal sinuses are clear. 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 Timeframe of the infarct remains likely subacute. There is no acute CVA seen.
[2020-06-15] MEDS: ENOXAPARIN 40 MG/0.4 ML SQ SCH (17:00)
--- NOTE | 2020-06-15 19:32 | R.PN ---
PROGRESS NOTES ENCOUNTER DATE AND TIME: 06/15/2020 19:23 (CDT) NAME MABLE LUNDBERG DATE OF : 1930 DATE OF ADMISSION: 06/04/2020 17:08 (CDT) CVACHIEF COMPLAINT: Stroke with left sided weakness and dysarthria SUBJECTIVE: Pt denied any depression. Pt denied any Shortness of Breath. WBC is mildly low at 10.9, prealbumin 14.8, Wood Finisher Apprentice 1.31, glu 116. Wheelchair mobility done with moderate assistance, standing in parallel bars. He has worsening slurred speech with dysarthria for all sounds. He failed a repeat barium swallow michael dy. 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 The stroke remains likely late subacute. The patient is now NPO and has a Dobbhoff tube placed. PEG tube will be placed if OK with the patient and his son. VITAL SIGNS Temp: 97.7 F SBP/DBP: 128/64 Pulse: 61 Resp: 16 MEDICATION ALLERGIES: No Known Drug Allergies (NKDA) ENVIRONMENTAL ALLERGIES: - Substance Allergies None Known - Other Allergies None Known NURSING: - Shower allowing shower - Bladder care per protocol - Skin care per protocol PRECAUTIONS: - Weight Bearing Precaution WBAT left LE ACTIVITIES OOB only with supervision THERAPIES: - Occupational Therapy Cognitive Retraining. Visual Perceptual Training. - Dietary and Nutrition Adequate Nutrition. Nutritional Education. Nutritional Supplements. - Speech Therapy Cognitive Training. Expressive Language Skills. Memory Strategies. Receptive Language Skills. Speech Intelligibility Training. PHYSICAL EXAM - Gen Alert and awake Lying in bed No apparent distress Oriented to: person, time, and place - Skin No skin breakdown. Atraumatic - Eyes No abnormalities - ENMT No abnormalities - Neck No abnormalities - CVS RRR - Chest Clear - Abd + bowel sounds - GI Soft Deferred - No abnormalities - Ext No significant edema - MSK Right arm and leg weakness, dysarthria. - Neuro Right arm and leg weakness, dysarthria. - Psych No abnormalities ASSESSMENT: Pt. is a 89 yo Right-handed male of unknown race.On 06/02/2020 Pt. presented to [facility] with sudden onset of left-side weakness.On 06/02/2020 he was admitted to [facility] w ith diagnosis CVA.His impairment category is Stroke 01 - Left Body (Right Brain) (01.1).Pre-morbidly , Pt. was independent/mod-I in Balance and Self-Care; and he had good Communication, Locomotion, and Transfers Control.Currently, he has deficits of Locomotion, Balance, Safety Awareness, Transfers Cont rol, Sphincter Control, Self-Care, and Endurance.Pt. is now referred to [facility] for acute in-patient rehabilitation in order to maximize patient's functional independence in ac tivities of daily living, strength, ROM, and mobility.- Rehab Goal Patient has realistic goal of being discharged at assistance level 7-Ind to reside at Home with Fami ly/Relatives. MDM/PLAN: - Physical Therapy Gait dysfunction - to improve, our physical therapists will perform initial evaluation of pt's statu s upon admission and devise an individualized program for Gait Training, and Wheel Chair mobility Inability to transfer - to improve, our physical therapists will perform initial evaluation of pt's status upon admission and devise an individualized program for Bed mobility Need for home safety evaluation - to improve, our physical therapists will perform initial evaluatio n of pt's status upon admission and devise an individualized program for Home Evaluation Need in caregiver upon discharge - to improve, our physical therapists will perform initial evaluati on of pt's status upon admission and devise an individualized program for Caregiver Training New precaution - to improve, our physical therapists will perform initial evaluation of pt's status upon admission and devise an individualized program for Patient precaution education Edema - to improve, our physical therapists will perform initial evaluation of pt's status upon admi ssion and devise an individualized program for Elevation Training, and Lymphedema Therapy Poor balance - to improve, our physical therapists will perform initial evaluation of pt's status up on admission and devise an individualized program for Balance Training Poor endurance - to improve, our physical therapists will perform initial evaluation of pt's status upon admission and devise an individualized program for Endurance Training Weakness - to improve, our physical therapists will perform initial evaluation of pt's status upon a dmission and devise an individualized program for Aquatic Therapy, Neuromuscular Reeducation, and Str engthening Achieving independence - to improve, our physical therapists will perform initial evaluation of pt's status upon admission and devise an individualized program for Community Reintegration Activities - Occupational Therapy ADL deficits - to improve, our occupation therapists will perform initial evaluation of pt's status upon admission and devise an individualized program for Bathing, Bed mobility, Community Reintegratio n, Cooking, Dressing, Eating, Fine Motor Skills, Grooming, Homemaking, Kitchen Mobility, Laundry, Pat ient Education, Safety Awareness, Splinting - Positioning, Transfers(Toilet, Tub, Shower), and Wheel Chair Management Need for professional healthcare representative - to improve, our occupation therapists will perform initial evaluation of pt's status upon admission and devise an individualized program for Caregiver Training Weakness - to improve, our occupation therapists will perform initial evaluation of pt's status upon admission and devise an individualized program for Aquatic Therapy, Balance, Endurance, UE ROM, and UE strengthening - Other See attached MAR (Medication Administration Record) - Diet Type Continue Regular - Diet - Liquid Texture Continue Regular - Tube Feed Continue N/A - Bladder care per protocol - Weight Bearing Precaution WBAT left LE - Skin care per protocol - Diet - Solid Texture Continue Regular - Shower allowing shower for Dementia, TBI, Stroke, or others FUNCTIONAL STATUS: UPDATED AT WEEKLY TEAM CONFERENCE - Bladder Same accident frequency: 7-Ind - No accidents in the past 7 days - Bowel Same accident frequency: 7-Ind - No accidents in the past 7 days - Walking Same score based on distance walked: 0(N/A) Same score based on distance walked: 1(<=50ft) - Wheelchair Same score based on distance traveled: 0(N/A) FUNCTIONAL STATUS: - Self-Care A. Eating Km B. Grooming sup C. Bathing modA D. Dressing - Upper Vipul E. Dressing - Lower modA F. Toileting Vipul - Sphincter Control G. Bladder control Vipul H. Bowel control Km - Transfers Control I. Bed/Chair/Wheelchair modA J. Toilet modA K. Tub/Shower modA - Locomotion L. Walk/Wheelchair (B) modA M. Stairs ADNO - Communication N. Comprehension (B) sup O. Expression (B) sup - Social Cognition P. Social Interaction Km Q. Problem Solving sup R. Memory sup - Endurance Fair - Balance Poor - Safety Awareness Fair QI SCORES: - Self-Care A. Eating 03-Partial/moderate assistance B. Oral hygiene 03-Partial/moderate assistance C. Toileting hygiene 02-Substantial/maximal assistance E. Shower/bathe self 02-Substantial/maximal assistance F. Upper body dressing 02-Substantial/maximal assistance G. Lower body dressing 02-Substantial/maximal assistance H. Putting on/taking off footwear 88-Not attempted due to medical condition or safety concerns - Mobility A. Roll left and right 03-Partial/moderate assistance B. Sit to lying 03-Partial/moderate assistance C. Lying to sitting on side of bed 03-Partial/moderate assistance D. Sit to stand 03-Partial/moderate assistance E. Chair/dvg-sz-sdhig transfer 03-Partial/moderate assistance F. Toilet transfer 02-Substantial/maximal assistance G. Car transfer 88-Not attempted due to medical condition or safety concerns I. Walk 10 feet 03-Partial/moderate assistance J. Walk 50 feet with two turns 88-Not attempted due to medical condition or safety concerns K. Walk 150 feet 88-Not attempted due to medical condition or safety concerns L. Walking 10 feet on uneven surfaces 88-Not attempted due to medical condition or safety concerns M. 1 step (curb) 88-Not attempted due to medical condition or safety concerns N. 4 steps 88-Not attempted due to medical condition or safety concerns O. 12 steps 88-Not attempted due to medical condition or safety concerns P. Picking up object R. Wheel 50 feet with two turns 88-Not attempted due to medical condition or safety concerns S. Wheel 150 feet 88-Not attempted due to medical condition or safety concerns - Bladder and Bowel Bladder continence Bowel continence - Endurance Fair - Balance Fair - Safety Awareness Fair CURRENT [facility]. DEFICITS: Self-Care, Mobility, Endurance, Balance, and Safety Awareness SIGNATURE PANEL: (CDT)
--- NOTE | 2020-06-15 19:35 | RAD REPORT ---
EXAM DESCRIPTION: RAD - Abdomen 1 View (KUB) - 06/15/2020 7:26 pm CLINICAL HISTORY: dubhoff placement Pain COMPARISON: Barium Swallow Modified dated 06/15/2020; Lumbar Spine 3 Views dated 06/04/2020; C Spine W o Con dated 06/02/2020 FINDINGS: The enteric tube tip projects along the medial right inferior chest. While this could pote ntially be within the esophagus or a hiatal hernia, could also potentially be within the medial right -sided tracheobronchial tree. Advise removal and re-attempting placement
[2020-06-15] MEDS: DULOXETINE 20 MG CAP PO SCH ×2 (19:39→21:00)
[2020-06-15] MEDS: TRAZODONE 50 MG TABLET PO SCH ×2 (19:39→21:00)
[2020-06-15] MEDS: ATORVASTATIN 40 MG TAB PO SCH ×2 (19:39→21:00)
[2020-06-16] MEDS: D5 0.45 NS 1,000 ML IV SCH ×2 (06:31→20:20)
[2020-06-16] MEDS ORDERED: D5 0.45 NS 1,000 ML IV ONE (06:45)
[2020-06-16] MEDS: CLOPIDOGREL 75 MG TABLET PO SCH (08:00)
[2020-06-16] MEDS: ASPIRIN EC 81 MG TAB PO SCH (08:00)
[2020-06-16] MEDS: THIAMINE HCL 100 MG TABLET PO SCH (08:00)
[2020-06-16] MEDS: LOSARTAN POTASSIUM 50 MG TABLET PO SCH (08:00)
[2020-06-16] MEDS: CYANOCOBALAMIN 1,000 MCG TAB PO SCH (08:00)
[2020-06-16] MEDS: FOLIC ACID 1 MG TABLET PO SCH (08:00)
[2020-06-16] MEDS: MAGNESIUM OXIDE 400 MG TAB PO SCH ×2 (08:00→20:00)
[2020-06-16] MEDS: NEBIVOLOL HCL 5 MG TAB PO SCH (08:00)
[2020-06-16] MEDS: FERROUS SULFATE 325 MG TAB PO SCH (08:00)
[2020-06-16] MEDS: LIDOCAINE 4% PATCH TOP SCH (09:06)
[2020-06-16] MEDS: LIDOCAINE 5% OINT 30 GM TUBE TOP SCH ×2 (09:06→20:00)
[2020-06-16] MEDS: NYSTATIN PWDR 100000 UNIT/GM TOP SCH ×2 (09:07→20:00)
[2020-06-16] MEDS: ENOXAPARIN 40 MG/0.4 ML SQ SCH (16:15)
[2020-06-16] MEDS ORDERED: HYDRALAZINE HCL 20 MG/ML VIAL IV PRN (17:00)
--- NOTE | 2020-06-16 17:58 | R.PN ---
PROGRESS NOTES ENCOUNTER DATE AND TIME: 06/16/2020 17:50 (CDT) NAME MABLE LUNDBERG DATE OF : 1930 DATE OF ADMISSION: 06/04/2020 17:08 (CDT) CVACHIEF COMPLAINT: Stroke with left sided weakness and dysarthria SUBJECTIVE: Pt denied any depression. Pt denied any Shortness of Breath. WBC is normal at 7.9. Lead Security Officer 1.78, glu 127. Wheelchair mobility done with moderate assistance, standing in parallel bars. He has worsening slurred speech with dysarthria for all sounds. He failed a repeat barium swallow michael dy. 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 The stroke remains likely late subacute. The patient is now NPO. A Dobbhoff tube could not be placed. PEG tube will be placed tomorrow by the surgery service after discussion with the patient and his son. He has D5,1/2NS at 75 cc per hour. VITAL SIGNS Temp: 97.8 F SBP/DBP: 157/74 Pulse: 62 Resp: 16 MEDICATION ALLERGIES: No Known Drug Allergies (NKDA) ENVIRONMENTAL ALLERGIES: - Substance Allergies None Known - Other Allergies None Known NURSING: - Shower allowing shower - Bladder care per protocol - Skin care per protocol PRECAUTIONS: - Weight Bearing Precaution WBAT left LE ACTIVITIES OOB only with supervision THERAPIES: - Occupational Therapy Cognitive Retraining. Visual Perceptual Training. - Dietary and Nutrition Adequate Nutrition. Nutritional Education. Nutritional Supplements. - Speech Therapy Cognitive Training. Expressive Language Skills. Memory Strategies. Receptive Language Skills. Speech Intelligibility Training. PHYSICAL EXAM - Gen Alert and awake Lying in bed No apparent distress Oriented to: person, time, and place - Skin No skin breakdown. Atraumatic - Eyes No abnormalities - ENMT No abnormalities - Neck No abnormalities - CVS RRR - Chest Clear - Abd + bowel sounds - GI Soft Deferred - No abnormalities - Ext No significant edema - MSK Right arm and leg weakness, dysarthria. - Neuro Right arm and leg weakness, dysarthria. - Psych No abnormalities ASSESSMENT: Pt. is a 89 yo Right-handed male of unknown race.On 06/02/[address] [facility] with sudden onset of left-side weakness.On 06/02/2020 he was admitted to [facility] w ith diagnosis CVA.His impairment category is Stroke 01 - Left Body (Right Brain) (01.1).Pre-morbidly , Pt. was independent/mod-I in Balance and Self-Care; and he had good Communication, Locomotion, and Transfers Control.Currently, he has deficits of Locomotion, Balance, Safety Awareness, Transfers Cont rol, Sphincter Control, Self-Care, and Endurance.Pt. is now referred to [facility] for acute in-patient rehabilitation in order to maximize patient's functional independence in ac tivities of daily living, strength, ROM, and mobility.- Rehab Goal Patient has realistic goal of being discharged at assistance level 7-Ind to reside at Home with Fami ly/Relatives. MDM/PLAN: - Physical Therapy Gait dysfunction - to improve, our physical therapists will perform initial evaluation of pt's statu s upon admission and devise an individualized program for Gait Training, and Wheel Chair mobility Inability to transfer - to improve, our physical therapists will perform initial evaluation of pt's status upon admission and devise an individualized program for Bed mobility Need for home safety evaluation - to improve, our physical therapists will perform initial evaluatio n of pt's status upon admission and devise an individualized program for Home Evaluation Need in caregiver upon discharge - to improve, our physical therapists will perform initial evaluati on of pt's status upon admission and devise an individualized program for Caregiver Training New precaution - to improve, our physical therapists will perform initial evaluation of pt's status upon admission and devise an individualized program for Patient precaution education Edema - to improve, our physical therapists will perform initial evaluation of pt's status upon admi ssion and devise an individualized program for Elevation Training, and Lymphedema Therapy Poor balance - to improve, our physical therapists will perform initial evaluation of pt's status up on admission and devise an individualized program for Balance Training Poor endurance - to improve, our physical therapists will perform initial evaluation of pt's status upon admission and devise an individualized program for Endurance Training Weakness - to improve, our physical therapists will perform initial evaluation of pt's status upon a dmission and devise an individualized program for Aquatic Therapy, Neuromuscular Reeducation, and Str engthening Achieving independence - to improve, our physical therapists will perform initial evaluation of pt's status upon admission and devise an individualized program for Community Reintegration Activities - Occupational Therapy ADL deficits - to improve, our occupation therapists will perform initial evaluation of pt's status upon admission and devise an individualized program for Bathing, Bed mobility, Community Reintegratio n, Cooking, Dressing, Eating, Fine Motor Skills, Grooming, Homemaking, Kitchen Mobility, Laundry, Pat ient Education, Safety Awareness, Splinting - Positioning, Transfers(Toilet, Tub, Shower), and Wheel Chair Management Need for critical care unit nurse - to improve, our occupation therapists will perform initial evaluation of pt's status upon admission and devise an individualized program for Caregiver Training Weakness - to improve, our occupation therapists will perform initial evaluation of pt's status upon admission and devise an individualized program for Aquatic Therapy, Balance, Endurance, UE ROM, and UE strengthening - Other See attached MAR (Medication Administration Record) - Diet Type Continue Regular - Diet - Liquid Texture Continue Regular - Tube Feed Continue N/A - Bladder care per protocol - Weight Bearing Precaution WBAT left LE - Skin care per protocol - Diet - Solid Texture Continue Regular - Shower allowing shower for Dementia, TBI, Stroke, or others FUNCTIONAL STATUS: UPDATED AT WEEKLY TEAM CONFERENCE - Bladder Same accident frequency: 7-Ind - No accidents in the past 7 days - Bowel Same accident frequency: 7-Ind - No accidents in the past 7 days - Walking Same score based on distance walked: 0(N/A) Same score based on distance walked: 1(<=50ft) - Wheelchair Same score based on distance traveled: 0(N/A) FUNCTIONAL STATUS: - Self-Care A. Eating Km B. Grooming sup C. Bathing modA D. Dressing - Upper Vipul E. Dressing - Lower modA F. Toileting Vipul - Sphincter Control G. Bladder control Vipul H. Bowel control Km - Transfers Control I. Bed/Chair/Wheelchair modA J. Toilet modA K. Tub/Shower modA - Locomotion L. Walk/Wheelchair (B) modA M. Stairs ADNO - Communication N. Comprehension (B) sup O. Expression (B) sup - Social Cognition P. Social Interaction Km Q. Problem Solving sup R. Memory sup - Endurance Fair - Balance Poor - Safety Awareness Fair QI SCORES: - Self-Care A. Eating 03-Partial/moderate assistance B. Oral hygiene 03-Partial/moderate assistance C. Toileting hygiene 02-Substantial/maximal assistance E. Shower/bathe self 02-Substantial/maximal assistance F. Upper body dressing 02-Substantial/maximal assistance G. Lower body dressing 02-Substantial/maximal assistance H. Putting on/taking off footwear 88-Not attempted due to medical condition or safety concerns - Mobility A. Roll left and right 03-Partial/moderate assistance B. Sit to lying 03-Partial/moderate assistance C. Lying to sitting on side of bed 03-Partial/moderate assistance D. Sit to stand 03-Partial/moderate assistance E. Chair/jpo-bb-[id number] transfer 03-Partial/moderate assistance F. Toilet transfer 02-Substantial/maximal assistance G. Car transfer 88-Not attempted due to medical condition or safety concerns I. Walk 10 feet 03-Partial/moderate assistance J. Walk 50 feet with two turns 88-Not attempted due to medical condition or safety concerns K. Walk 150 feet 88-Not attempted due to medical condition or safety concerns L. Walking 10 feet on uneven surfaces 88-Not attempted due to medical condition or safety concerns M. 1 step (curb) 88-Not attempted due to medical condition or safety concerns N. 4 steps 88-Not attempted due to medical condition or safety concerns O. 12 steps 88-Not attempted due to medical condition or safety concerns P. Picking up object R. Wheel 50 feet with two turns 88-Not attempted due to medical condition or safety concerns S. Wheel 150 feet 88-Not attempted due to medical condition or safety concerns - Bladder and Bowel Bladder continence Bowel continence - Endurance Fair - Balance Fair - Safety Awareness Fair [facility] DEFICITS: Self-Care, Mobility, Endurance, Balance, and Safety Awareness SIGNATURE PANEL: (CDT)
--- NOTE | 2020-06-16 19:09 | CON ---
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 I am consulted for concern of the patient having inability to tolerate p.o . based on a recent swallowing study. He has very poor swallowing ability and as such, he is concern ed about possible aspiration. Therefore, I am consulted for PEG tube placement. Past Medical History: Significant for coronary artery disease, hypertension, bladder cancer, prostat e cancer, colon cancer, status post colostomy creation, prostatectomy. Review of Systems: Unable to obtain. The patient is nonverbal. The patient is accompanied by his son who is present th roughout the examination. Physical Examination: Vital Signs: At the time of my examination; his BMI is 26.7, his heart rate was 62, respiratory rate 20, blood pressure , temperature 96.8, SpO2 100% on room air. General: He is awake and alert, but nonverbal. Psychiatric: The patient gestures with yeses and nos, but is nonverbal. HEENT: Otherwise normocephalic. Sclerae anicteric. Mucous membranes moist. Oropharynx clear. Neck: Supple without JVD. Chest: Normal expansion and excursion. Cardiovascular: Regular rate and rhythm. Pulmonary: Clear to auscultation bilaterally. Abdomen: Soft. He has a left-sided colostomy in place and well-healed midline surgical scar. No re bound. No guarding. No focal peritonitis. Laboratory Data: His white blood cell count is 7.9, hemoglobin is , hematocrit 37.7, plate let count is 259, neutrophils 74%. Sodium 140, potassium 4.9, chloride 109, carbon dioxide 27, BUN 4 9, creatinine 1.7, glucose is 158. He had imaging performed on 06/05/2020, which was officially read as no acute intracranial abnormality. Mild generalized brain atrophy is present with mild periventr icular and deep white matter chronic microvascular changes. No areas of edema or evidence of midline shift. Mild vertebral atherosclerosis. Head CT on 06/15 was officially read as no intracranial hem orrhage present. The patient's atrophy and chronic ischemic pattern are not clearly defined from May imaging. He had a brain MRI on 06/15 also, which was officially read as the patient's left p ontine infarct is again noted, appearing larger in size, compared to 06/03/2020. Time frame of the i nfarct remains likely subacute. There is no acute CVA seen. His modified barium swallow performed o n 06/15, which officially read as laryngeal penetration-not cleared with all consistencies, aspiratio n equals no cough with thin, nectar, honey, puree. Severe laryngeal residue in the vallecular pirifo rm and posterior wall with all consistencies, nasal regurgitation with pharyngeal residues delayed sw allow 4 to 5 seconds. Assessment And Plan: This is an 89-year-old male, who comes in after a recent cerebrovascular accide nt with inability to tolerate p.o. due to aspiration risk. As such, I have explained the risks, bene fits, and alternatives of placement of a percutaneous endoscopic gastrostomy, PEG feeding tube, inclu ding but not limited to bleeding, infection, damage to intestines, damage to colon, damage to the arnaldo er, bleeding, infection, need for further operation and procedures. The patient and the son agreed t o proceed as indicated. Thank you for this interesting consult. ASHER/JOHN Voice ID: [id number] Report ID: [id number]
[2020-06-16 20:41] LABS: Absolute Lymphocytes (CBC) 0.9 K/uL (0.7-4.9); Hematocrit 33.6 % (39.6-49.0); Lymphocytes % 15.2 % (15.3-44.8); MPV 8.6 fL (7.6-11.3); RBC Red Blood Cell Count 3.46 M/uL (4.33-5.43)
[2020-06-16] MEDS: TRAZODONE 50 MG TABLET PO SCH (20:55)
[2020-06-16] MEDS: ATORVASTATIN 40 MG TAB PO SCH (20:55)
[2020-06-16] MEDS: DULOXETINE 20 MG CAP PO SCH (20:55)
[2020-06-16 21:07] LABS: Albumin 2.9 g/dL (3.4-5.0); Magnesium 2.2 mg/dL (1.8-2.4); Potassium 4.3 mmol/L (3.5-5.1); Prealbumin 16.3 mg/dL (20-40)
[2020-06-17] MEDS: NYSTATIN PWDR 100000 UNIT/GM TOP SCH ×2 (08:00→19:53)
[2020-06-17] MEDS: CLOPIDOGREL 75 MG TABLET PO SCH (08:00)
[2020-06-17] MEDS: MAGNESIUM OXIDE 400 MG TAB PO SCH ×2 (08:00→19:53)
[2020-06-17] MEDS: LOSARTAN POTASSIUM 50 MG TABLET PO SCH (08:00)
[2020-06-17] MEDS: ASPIRIN EC 81 MG TAB PO SCH (08:00)
[2020-06-17] MEDS: LIDOCAINE 5% OINT 30 GM TUBE TOP SCH ×2 (08:00→09:52)
[2020-06-17] MEDS: FOLIC ACID 1 MG TABLET PO SCH (08:00)
[2020-06-17] MEDS: CYANOCOBALAMIN 1,000 MCG TAB PO SCH (08:00)
[2020-06-17] MEDS: NEBIVOLOL HCL 5 MG TAB PO SCH (08:00)
[2020-06-17] MEDS: THIAMINE HCL 100 MG TABLET PO SCH (08:00)
[2020-06-17] MEDS: FERROUS SULFATE 325 MG TAB PO SCH (08:00)
[2020-06-17] MEDS: D5 0.45 NS 1,000 ML IV SCH ×2 (09:05→23:47)
[2020-06-17] MEDS: LIDOCAINE 4% PATCH TOP SCH (09:50)
--- NOTE | 2020-06-17 09:58 | P.RH.PN ---
Estimated Length of Stay: 20 Expected Discharge Date: 06/24/20 Discharge Disposition Plan: Home Family Support: Yes Fpc Goal: Mobility, Transfers, Self Care Vital Signs: Last Vital Signs Temp 97.6 F 06/17/20 07:16 Pulse 65 06/17/20 07:16 Resp 18 06/17/20 07:16 BP 154/68 H 06/17/20 09:07 Pulse Ox 94 06/17/20 07:16 Laboratory: Laboratory Last Values WBC 6.10 K/uL (4.3-10.9) D 06/16/20 19:44 RBC 3.46 M/uL (4.33-5.43) L 06/16/20 19:44 Hgb 11.5 g/dL (13.6-17.9) L 06/16/20 19:44 Hct 33.6 % (39.6-49.0) L 06/16/20 19:44 MCV 97.2 fL (80-100) 06/16/20 19:44 MCH 33.2 pg (27.0-35.0) 06/16/20 19:44 MCHC 34.2 g/dL (32.0-36.0) 06/16/20 19:44 RDW 13.3 % (12.1-15.2) 06/16/20 19:44 Plt Count 180 K/uL (152-406) D 06/16/20 19:44 MPV 8.6 fL (7.6-11.3) 06/16/20 19:44 Neutrophils % 71.6 % (41.7-73.7) 06/16/20 19:44 Lymphocytes % 15.2 % (15.3-44.8) L 06/16/20 19:44 Monocytes % 10.2 % (3.3-12.3) 06/16/20 19:44 Eosinophils % 2.0 % (0-4.4) 06/16/20 19:44 Basophils % 1.0 % (0-1.3) 06/16/20 19:44 Absolute Neutrophils 4.4 K/uL (1.8-8.0) 06/16/20 19:44 Absolute Lymphocytes 0.9 K/uL (0.7-4.9) 06/16/20 19:44 Absolute Monocytes 0.6 K/uL (0.1-1.3) 06/16/20 19:44 Absolute Eosinophils 0.1 K/uL (0-0.5) 06/16/20 19:44 Absolute Basophils 0.1 K/uL (0-0.5) 06/16/20 19:44 Sodium 141 mmol/L (136-145) 06/16/20 19:44 Potassium 4.3 mmol/L (3.5-5.1) 06/16/20 19:44 Chloride 110 mmol/L (98-107) H 06/16/20 19:44 Carbon Dioxide 26 mmol/L (21-32) 06/16/20 19:44 BUN 35 mg/dL (7-18) H 06/16/20 19:44 Creatinine 1.41 mg/dL (0.55-1.3) H 06/16/20 19:44 Estimated GFR 47 mL/min (=/>90) L 06/16/20 19:44 Glucose 140 mg/dL (74-106) H 06/16/20 19:44 POC Glucose 127 mg/dL (65-120) H 06/16/20 06:07 Calcium 8.9 mg/dL (8.5-10.1) 06/16/20 19:44 Magnesium 2.2 mg/dL (1.8-2.4) 06/16/20 19:44 Albumin 2.9 g/dL (3.4-5.0) L 06/16/20 19:44 Prealbumin 16.3 mg/dL (20-40) L 06/16/20 19:44 Urine Color Yellow (Yellow) 06/04/20 21:15 Urine Appearance Clear (Clear) 06/04/20 21:15 Urine pH 6.0 (5.0-7.0) 06/04/20 21:15 Ur Specific [place] 1.010 (1.005-1.030) 06/04/20 21:15 Glucose (UA)(Auto) Negative (Negative) 06/04/20 21:15 Urine Ketones Negative (Negative) 06/04/20 21:15 Urine Blood Negative (Negative) 06/04/20 21:15 Urine Nitrite Negative (Negative) 06/04/20 21:15 Urine Bilirubin Negative (Negative) 06/04/20 21:15 Urine Urobilinogen 0.2 mg/dL (0.2-1.0) 06/04/20 21:15 Ur Leukocyte Esterase Negative (Negative) 06/04/20 21:15 Urine RBC <5 /HPF (NONE SEEN) 06/04/20 21:15 Urine WBC <5 /HPF (<5) 06/04/20 21:15 Ur Squamous Epith Cells <5 /HPF (NONE SEEN) 06/04/20 21:15 Urine Bacteria <20 /HPF (NONE SEEN) 06/04/20 21:15 Urine Culture Reflexed Not needed 06/04/20 21:15 Urine Total Protein Negative (Negative) 06/04/20 21:15 SARS-CoV-2 RNA (RT-PCR) Negative (NEGATIVE) 06/16/20 10:45 Weight: 213 lb 8 oz Within Defined Parameters: No Right Abdomen Skin Alteration: Dermatitis due to Incontinence Skin Temperature: Cool Skin Color: Normal Skin Tone Skin Turgor: Normal Skin Tone: Elastic around the colostomy stoma Skin Alteration: redness Skin Temperature: Cool Skin Color: red Skin Turgor: Normal Skin Tone: Elastic right inner arm Skin Alteration: skin tear/ 2/2 guaze and tegaderm dressing applied. Skin Temperature: Warm Skin Color: Normal Skin Tone Skin Turgor: Poor Skin Tone: Loose Wound Present: No Closed Surgical Incision Present: No Negative Pressure Wound Therapy Present: No Physician Update: His labs are stable. He has worsening right arm and leg weakness and severe dysarthria after the extension of his original brainstem stroke to include more of the christ. He is maximum assistance for ADL, transfers and mobilization. He will likely be sent to alf for several weeks. Summary: Patient's care plan and correction goals have been reviewed and revised as necessary. Please see the Rehabilitation Signature page for all necessary signatures.
[2020-06-17] MEDS ORDERED: Ringers Lactate 1,000 ML IV ONE (14:23)
[2020-06-17] MEDS ORDERED: CEFAZOLIN/SWI 1gm 1 GM/10 ML SYR ONE (14:31)
[2020-06-17] MEDS ORDERED: LIDOCAINE 1% MPF 5 ML VIAL ONE (15:16)
[2020-06-17] MEDS ORDERED: propofoL 200 MG/20 ML VIAL IV ONE (15:16)
--- NOTE | 2020-06-17 15:33 | ENDO RPT ---
[address], [address] EGD WITH PEG PROCEDURE REPORT EXAM DATE: 06/17/2020 PATIENT NAME: Cooper Mitchell MR #: [id number] BIRTHDATE: 1930 ATTENDING: Adin Hernandez DR STATUS: inpatient - [facility] [employer] TRADER: Iram Enriquez RN, Miley Holliday RN, and Heather Crump INDICATIONS: The patient is a 89 yr old Male here for an EGD with PEG due to Dysphagia, aspiration s/p CVA PROCEDURE PERFORMED: EGD with biopsy for H. pylori EGD with PEG placement MEDICATIONS: Per Anesthesia. TOPICAL ANESTHETIC: none CONSENT: The patient understands the risks and benefits of the procedure and understands that these risks include, but are not limited to: sedation, allergic reaction, infection, perforation and/or bleeding. Alternative means of evaluation and treatment include, among others: physical exam, x-rays, and/or surgical intervention. The patient elects to proceed with this endoscopic procedure. DESCRIPTION OF PROCEDURE: During intra-op preparation period all mechanical medical equipment was checked for proper function. Hand hygiene and appropriate measures for infection prevention was taken. After the risks, benefits and alternatives of the procedure were thoroughly explained, Informed consent was verified, confirmed and timeout was successfully executed by the treatment team. The patient was anesthetized with topical anesthesia and the EG-[id number] ([id number]) endoscope was introduced through the mouth and advanced to the bulb of duodenum. The instrument was slowly withdrawn as the mucosa was fully examined. Mild gastritis was found in the total stomach. Duodenitis was found in the bulb of the duodenum. An ulcer was found in the bulb of the duodenum. With standard forceps, a biopsy was obtained and sent to pathology. The stomach was then inflated with air, and by a combination of transillumination and manual palpation, the site for the gastrostomy tube placement was selected and marked on the anterior abdominal wall. The skin of the anterior abdomen was surgically prepped and draped with sterile towels. Utilizing strict sterile technique, the selected site was then anesthetized with 1% xylocaine by injection into the skin and subcutaneous tissue. A 1 cm incision was made through the skin and subcutaneous tissue, and the needle/cannula assembly was then passed through the abdominal wall and through the anterior wall of the stomach, maintaining visualization with the endoscope. A snare device previously placed through the instrument channel was then opened and placed around the cannula, the needle was removed, and the insertion wire was passed through the cannula and into the stomach lumen. The snare was then loosened from the cannula, and repositioned to snare the insertion wire. The snare was then pulled up to the endoscope distal tip, and the scope was then withdrawn bringing with it the snare and insertion wire. The insertion wire was then released from the snare, and then loop-attached to the PEG PULL gastrostomy tube. Using the pull technique, the G-tube was then pulled into place by traction on the insertion wire at the abdominal wall end. The G-tube insertion site was then cleansed once again, and the external bolster was placed over the tube to secure it to the abdominal wall. A sterile dressing was then applied, and the procedure terminated. Retroflexed views revealed a small hiatal hernia. The gastroscope was then slowly withdrawn and removed. ADVERSE EVENT: There were no complications. IMPRESSIONS: 1. Mild gastritis was found in the total stomach 2. Duodenitis was found in the bulb of the duodenum 3. An ulcer was found in the bulb of the duodenum RECOMMENDATIONS: 1. acid suppression therapy 2. anti-reflux regimen 3. await biopsy results 4. avoid NSAIDS 5. follow-up of helicobacter pylori status, treat if indicated REPEAT EXAM: Adin Hernandez DR eSigned: Adin Hernandez DR 06/17/2020 3:33 PM cc: CPT CODES: ICD9 CODES: PATIENT NAME: Cooper Mitchell MR#: [id number]
[2020-06-17] MEDS ORDERED: HYDROCOD 2.5mg-ACETAMIN 108mg/5mL Soln PO PRN (15:54)
[2020-06-17 16:01] VITALS: O2SAT 99
[2020-06-17] MEDS ORDERED: HYDROCODONE/APAP 7.5/325 MG TAB PO PRN (16:12)
[2020-06-17] MEDS: DULOXETINE 20 MG CAP PO SCH (19:54)
[2020-06-17] MEDS: PANTOPRAZOLE 40 MG INJ IVP SCH (19:54)
[2020-06-17] MEDS: TRAZODONE 50 MG TABLET PO SCH (19:54)
[2020-06-17] MEDS: ATORVASTATIN 40 MG TAB PO SCH (19:54)
[2020-06-17] MEDS: ENOXAPARIN 40 MG/0.4 ML SQ SCH (19:55)
[2020-06-18] MEDS: NYSTATIN PWDR 100000 UNIT/GM TOP SCH ×3 (08:00→20:00)
[2020-06-18] MEDS: LOSARTAN POTASSIUM 50 MG TABLET PO SCH (08:00)
[2020-06-18] MEDS: CLOPIDOGREL 75 MG TABLET PO SCH (08:00)
[2020-06-18] MEDS: CYANOCOBALAMIN 1,000 MCG TAB PO SCH (08:00)
[2020-06-18] MEDS: NEBIVOLOL HCL 5 MG TAB PO SCH (08:00)
[2020-06-18] MEDS: ASPIRIN EC 81 MG TAB PO SCH (08:00)
[2020-06-18] MEDS: THIAMINE HCL 100 MG TABLET PO SCH (08:00)
[2020-06-18] MEDS: FOLIC ACID 1 MG TABLET PO SCH (08:00)
[2020-06-18] MEDS: MAGNESIUM OXIDE 400 MG TAB PO SCH ×2 (08:00→20:57)
[2020-06-18] MEDS: FERROUS SULFATE 325 MG TAB PO SCH (08:00)
[2020-06-18] MEDS: PANTOPRAZOLE 40 MG INJ IVP SCH ×2 (08:41→20:58)
[2020-06-18] MEDS: LIDOCAINE 5% OINT 30 GM TUBE TOP SCH ×2 (08:43→21:02)
[2020-06-18] MEDS: SODIUM CHLORIDE 0.9% 10ML INJ IV PRN ×2 (08:43→21:02)
[2020-06-18] MEDS: LIDOCAINE 4% PATCH TOP SCH (08:44)
--- NOTE | 2020-06-18 09:35 | RAD REPORT ---
EXAM DESCRIPTION: RAD - Chest Single View - 06/18/2020 9:11 am CLINICAL HISTORY: increase moist cough COMPARISON: June 15 TECHNIQUE: AP portable chest image was obtained 06/18/2020 9:11 am . FINDINGS: No peripheral mass or consolidation in the right lung field. Increased lung markings media l left base noted. Cardiac silhouette is prominent, in part due to portable technique and low lung vo lumes. No vascular engorgement or other findings of acute failure or volume overload. No measurable p leural effusion and no pneumothorax. No acute bony abnormality seen. No acute aortic findings suspect ed. IMPRESSION: Limited shallow inspiration exam shows increased lung markings medial left base. The portable technique and shallow inspiration affects limit optimal assessment of the lung base. A m ild or early left lung base pneumonia is possible. Follow-up two-view examination would be helpful if tolerable by the patient.
[2020-06-18] MEDS ORDERED: JEVITY 1.5 CAL LIQUID 1,000 ML BOT FT SCH (10:00)
[2020-06-18] MEDS: D5 0.45 NS 1,000 ML IV SCH (11:52)
[2020-06-18] MEDS ORDERED: NA CHLORIDE 0.9% 500 ML IV SCH (19:00)
[2020-06-18] MEDS: ATORVASTATIN 40 MG TAB PO SCH (20:57)
[2020-06-18] MEDS: DULOXETINE 20 MG CAP PO SCH (20:57)
[2020-06-18] MEDS: TRAZODONE 50 MG TABLET PO SCH (20:57)
[2020-06-18] MEDS: ENOXAPARIN 40 MG/0.4 ML SQ SCH (20:58)
[2020-06-19] MEDS: PIPER/TAZO/NS 3.375gm 3.375 GM/100 ML BAG IVPB SCH ×2 (00:34→06:50)
[2020-06-19] MEDS: PANTOPRAZOLE 40 MG INJ IVP SCH (06:46)
[2020-06-19] MEDS: LIDOCAINE 4% PATCH TOP SCH (06:47)
[2020-06-19] MEDS: SODIUM CHLORIDE 0.9% 10ML INJ IV PRN (06:47)
[2020-06-19] MEDS: ASPIRIN EC 81 MG TAB PO SCH (06:49)
[2020-06-19] MEDS: THIAMINE HCL 100 MG TABLET PO SCH (06:49)
[2020-06-19] MEDS: FERROUS SULFATE 325 MG TAB PO SCH (06:49)
[2020-06-19] MEDS: CYANOCOBALAMIN 1,000 MCG TAB PO SCH (06:50)
[2020-06-19] MEDS: CLOPIDOGREL 75 MG TABLET PO SCH (06:50)
[2020-06-19] MEDS: MAGNESIUM OXIDE 400 MG TAB PO SCH (06:50)
[2020-06-19] MEDS: LOSARTAN POTASSIUM 50 MG TABLET PO SCH (06:50)
[2020-06-19] MEDS: FOLIC ACID 1 MG TABLET PO SCH (06:50)
[2020-06-19] MEDS: LIDOCAINE 5% OINT 30 GM TUBE TOP SCH (06:52)
[2020-06-19] MEDS: NEBIVOLOL HCL 5 MG TAB PO SCH (06:53)
[2020-06-19] MEDS: NYSTATIN PWDR 100000 UNIT/GM TOP SCH (06:54)
[2020-06-19 07:01] VITALS: TEMP 97
[2020-06-19 08:09] LABS: Absolute Lymphocytes (CBC) 0.6 K/uL (0.7-4.9); Basophils % 0.6 % (0-1.3); Hematocrit 35.9 % (39.6-49.0); Lymphocytes % 6.4 % (15.3-44.8); MPV 8.9 fL (7.6-11.3)
--- NOTE | 2020-06-19 08:46 | RAD REPORT ---
EXAM DESCRIPTION: RAD - Chest Single View - 06/19/2020 8:17 am CLINICAL HISTORY: Labored breathing Chest pain. COMPARISON: Chest Single View dated 06/18/2020; Abdomen 1 View (KUB) dated 06/15/2020; Chest Single Vi ew dated 06/15/2020; Chest Single View dated 06/02/2020 FINDINGS: Portable technique limits examination quality. Linear opacities are present in both lung bases, greater on the right, likely representing subsegment al atelectasis. The heart is mildly to moderately enlarged. No displaced fractures.
[2020-06-19] MEDS ORDERED: ALBUTEROL 2.5 MG/3 ML NEB SOL NEB SCH ×2 (09:05→14:00)
[2020-06-19] MEDS ORDERED: FUROSEMIDE 40 MG/4 ML VIAL IV ONE (09:18)
[2020-06-19 09:34] VITALS: BP 166/73
[2020-06-19] MEDS ORDERED: IPRATROPIUM BROM 0.5MG/2.5ML NEB SCH ×2 (10:00→14:00)
--- NOTE | 2020-06-19 10:20 | R.DS ---
DISCHARGE SUMMARY FACILITY [facility] MR# [id number] NAME MABLE LUNDBERG [address]ESS [address] [place] [place] [address] PHONE DATE OF 1930 AGE 89 SSN# [id number] GENDER Male DEXTERITY Right-handed MARITAL STATUS RACE Unknown race ENCOUNTER PHYSICIAN Dr. Vanessa Amato REFERRING DOCTOR Rigo Cotton REFERRING FACILITY [facility] DISCHARGE DIAGNOSIS: - Stroke 01 - Left Body (Right Brain) (01.1) CVA. DATE OF ADMISSION 06/04/2020 17:08 (CDT) MEDICATION ALLERGIES: No Known Drug Allergies (NKDA) ENVIRONMENTAL ALLERGIES: - Substance Allergies None Known - Other Allergies None Known DISCHARGE MEDICATIONS: Other- ContinueSee attached MAR (Medication Administration Record). NURSING: - Shower allowing shower - Bladder care per protocol - Skin care per protocol PRECAUTIONS: - Weight Bearing Precaution WBAT left LE ACTIVITIES OOB only with supervision THERAPIES: - Occupational Therapy Cognitive Retraining Visual Perceptual Training - Dietary and Nutrition Adequate Nutrition Nutritional Education Nutritional Supplements - Speech Therapy Cognitive Training Expressive Language Skills Memory Strategies Receptive Language Skills Speech Intelligibility Training HISTORY OF PRESENT ILLNESS: Pt. is a 89 yo Right-handed male of unknown race.On 06/02/2020 Pt. presented to [facility] with sudden onset of left-side weakness.On 06/02/2020 he was admitted to [facility] w ith diagnosis CVA.His impairment category is Stroke 01 - Left Body (Right Brain) (01.1).Pre-morbidly , Pt. was independent/mod-I in Balance and Self-Care; and he had good Communication, Locomotion, and Transfers Control.Currently, he has deficits of Locomotion, Balance, Safety Awareness, Transfers Cont rol, Sphincter Control, Self-Care, and Endurance.Pt. is now referred to [facility] for acute in-patient rehabilitation in order to maximize patient's functional independence in ac tivities of daily living, strength, ROM, and mobility.- Rehab Goal Patient has realistic goal of being discharged at assistance level 7-Ind to reside at Home with Fami ly/Relatives. DIET - LIQUID TEXTURE: On 06/04/2020 Pt was upgraded to Regular Diet - Liquid Texture. DIET - SOLID TEXTURE: On 06/04/2020 Pt was upgraded to Regular Diet - Solid Texture. DIET TYPE: On 06/04/2020 Pt was upgraded to Regular Diet Type. TUBE FEED: On 06/04/2020 Pt was changed to N/A Tube Feed. WEIGHT BEARING PRECAUTION: On 06/04/2020 the following precautions were added for the patient: Weight Bearing Precaution - WBAT left LE. On 06/05/2020 the following precautions were added for the patient: Weight Bearing Precaution - WBAT left LE. On 06/08/2020 the following precautions were removed for the patient: Weight Bearing Precaution - WB AT left LE. On 06/09/2020 the following precautions were added for the patient: Weight Bearing Precaution - WBAT left LE. DISCHARGE PHYSICAL EXAM - Gen Alert and awake Lying in bed No apparent distress Oriented to: person, time, and place - Skin No skin breakdown. Atraumatic - Eyes No abnormalities - ENMT No abnormalities - Neck No abnormalities - CVS RRR - Chest Clear - Abd + bowel sounds - GI Soft Deferred - No abnormalities - Ext No significant edema - MSK Right arm and leg weakness, dysarthria. - Neuro Right arm and leg weakness, dysarthria. - Psych No abnormalities QI SCORES: - Self-Care A. Eating 03-Partial/moderate assistance B. Oral hygiene 03-Partial/moderate assistance C. Toileting hygiene 02-Substantial/maximal assistance E. Shower/bathe self 02-Substantial/maximal assistance F. Upper body dressing 02-Substantial/maximal assistance G. Lower body dressing 02-Substantial/maximal assistance H. Putting on/taking off footwear 88-Not attempted due to medical condition or safety concerns - Mobility A. Roll left and right 03-Partial/moderate assistance B. Sit to lying 03-Partial/moderate assistance C. Lying to sitting on side of bed 03-Partial/moderate assistance D. Sit to stand 03-Partial/moderate assistance E. Chair/flr-vj-pyeci transfer 03-Partial/moderate assistance F. Toilet transfer 02-Substantial/maximal assistance G. Car transfer 88-Not attempted due to medical condition or safety concerns I. Walk 10 feet 03-Partial/moderate assistance J. Walk 50 feet with two turns 88-Not attempted due to medical condition or safety concerns K. Walk 150 feet 88-Not attempted due to medical condition or safety concerns L. Walking 10 feet on uneven surfaces 88-Not attempted due to medical condition or safety concerns M. 1 step (curb) 88-Not attempted due to medical condition or safety concerns N. 4 steps 88-Not attempted due to medical condition or safety concerns O. 12 steps 88-Not attempted due to medical condition or safety concerns P. Picking up object R. Wheel 50 feet with two turns 88-Not attempted due to medical condition or safety concerns S. Wheel 150 feet 88-Not attempted due to medical condition or safety concerns - Bladder and Bowel Bladder continence Bowel continence - Endurance Fair - Balance Fair - Safety Awareness Fair DISCHARGE INSTRUCTIONS: - GENERAL MEDICAL FLOOR The patient will have a incentive spirometry on. DISCHARGE PLAN, FOLLOW UP CARE PROVISIONS: - Estimated Length of Stay (days) 17. - Consensus on plan Discharge plan has been discussed with primary caregiver. Patient/Family is in agreement with the venkatesh n. Primary caregiver is in agreement with the plan. - Patient/Family Goals Return home independently. - Planned Living Setting Upon Discharge Home, to live with Family/Relatives. Transitional Living. SIGNATURE PANEL: (CDT)
--- NOTE | 2020-06-19 10:27 | RAD REPORT ---
EXAM DESCRIPTION: CT - Soft Tissue Neck Wo Contr CLINICAL HISTORY: resp distress Neck, abdomen pain, difficulty breathing COMPARISON: C Spine Wo Con dated 06/02/2020; Chest Abd Pelvis Wo Con dated 06/19/[address] scans are performed using dose optimization technique as appropriate and may includ e automated exposure control or mA/KV adjustment according to patient size. FINDINGS: CT soft tissue of the neck and CT chest/abdomen/pelvis without contrast was performed No intrinsic or extrinsic neck mass is identified. The paranasal sinuses and mastoids appear clear. N o bulky lymphadenopathy in the neck. Mild bilateral carotid atherosclerosis. Mild infiltrate is noted in both lung bases, greater on the right in the medial right lung base, susp icious for pneumonia/aspiration. Cardiac size is normal. Small hiatal hernia. Trace pneumoperitoneum is seen likely attributable to recent PEG tube placement. PEG tube appears in expected positioning. There is no fluid collection or bowel between the entry site of the PEG tube in the abdominal wall. Stomach is decompressed. No acute solid organ finding. Cholecystectomy. Left lower quadrant ostomy is present with parastomal hernia. Prostatectomy clips. Mild lumbar degenerative spondylosis. 4 cm infrarenal abdominal aortic aneurysm. Mild lumbar degenerative changes are present. IMPRESSION: Bibasilar lung opacities, greater in the medial right lung base, probably represent pneu monia/ aspiration. No unusual or unexpected abnormality related to the PEG tube seen. No acute neck abnormality.
[2020-06-19] MEDS ORDERED: SCOPOLAMINE HYDROBROMIDE PATCH TD ONE (10:44)
[2020-06-19] MEDS ORDERED: METHYLPREDNISOLONE 125 MG INJ IV ONE (10:45)
--- NOTE | 2020-06-19 10:50 | RAD REPORT ---
EXAM DESCRIPTION: CT - Chest Abd Pelvis Wo Con - 06/19/2020 9:56 am CLINICAL HISTORY: Resp distress Neck, abdomen pain, difficulty breathing COMPARISON: C Spine Wo Con dated 06/02/2020; Chest Abd Pelvis Wo Con dated 06/19/2020 TECHNIQUE: All CT scans are performed using dose optimization technique as appropriate and may inclu de automated exposure control or mA/KV adjustment according to patient size. FINDINGS: CT soft tissue of the neck and CT chest/abdomen/pelvis without contrast was performed No intrinsic or extrinsic neck mass is identified. The paranasal sinuses and mastoids appear clear. N o bulky lymphadenopathy in the neck. Mild bilateral carotid atherosclerosis. Mild infiltrate is noted in both lung bases, greater on the right in the medial right lung base, susp icious for pneumonia/aspiration. Cardiac size is normal. Small hiatal hernia. Trace pneumoperitoneum is seen likely attributable to recent PEG tube placement. PEG tube appears in expected positioning. There is no fluid collection or bowel between the entry site of the PEG tube in the abdominal wall. Stomach is decompressed. No acute solid organ finding. Cholecystectomy. Left lower quadrant ostomy is present with parastomal hernia. Prostatectomy clips. Mild lumbar degenerative spondylosis. 4 cm infrarenal abdominal aortic aneurysm. Mild lumbar degenerative changes are present. IMPRESSION: Bibasilar lung opacities, greater in the medial right lung base, probably represent pneu monia/ aspiration. No unusual or unexpected abnormality related to the PEG tube seen. No acute neck abnormality.
[2020-06-19] MEDS ORDERED: D5 0.45 NS 1,000 ML IV SCH (11:00)
[2020-06-19] MEDS ORDERED: SCOPOLAMINE HYDROBROMIDE PATCH TD STA (11:00)
[2020-06-19] MEDS ORDERED: ACETYLCYST 20% 4 ML VIAL IH SCH (20:00)
[2020-06-22] MEDS ORDERED: SCOPOLAMINE HYDROBROMIDE PATCH TD SCH (09:00)
== END 2020-06-19 13:25 | disposition other institution (70) | DRG 57 ==
LOC: 5TH 17:08
PROVIDERS: ADMIT Psychiatry & Neurology Neurology with Special Qualifications in Child Neurology; ATTEND Psychiatry & Neurology Neurology with Special Qualifications in Child Neurology
PROC: 0HBQXZZ Excision of Finger Nail, External Approach (ICD-10-PCS; 2020-06-09)
PROC: 0DH63UZ Insertion of Feeding Device into Stomach, Percutaneous Approach (ICD-10-PCS; 2020-06-17)
PROC: 0DB98ZX Excision of Duodenum, Via Natural or Artificial Opening Endoscopic, Diagnostic (ICD-10-PCS; principal; 2020-06-17 14:00)
DX: I69.354 Hemiplegia and hemiparesis following cerebral infarction affecting left non-dominant side (principal); K29.70 Gastritis, unspecified, without bleeding; K29.80 Duodenitis without bleeding; K26.9 Duodenal ulcer, unspecified as acute or chronic, without hemorrhage or perforation; I69.322 Dysarthria following cerebral infarction; I25.10 Atherosclerotic heart disease of native coronary artery without angina pectoris; I70.91 Generalized atherosclerosis; I10 Essential (primary) hypertension; B35.1 Tinea unguium; Z85.51 Personal history of malignant neoplasm of bladder; Z85.46 Personal history of malignant neoplasm of prostate; Z85.038 Personal history of other malignant neoplasm of large intestine; Z79.82 Long term (current) use of aspirin; Z79.02 Long term (current) use of antithrombotics/antiplatelets; Z79.899 Other long term (current) drug therapy; Z60.2 Problems related to living alone; Z20.822 Contact with and (suspected) exposure to COVID-19
CPT/HCPCS: 36415; 49450; 70450; 70490; 70551; 71045; 71250; 74018; 74176; 74230; 80048; 81001; 82040; 82947; 83605; 83735; 84134; 84145; 85025; 87086; 87088; 88305; 92507; 92523; 92526; 92610; 92611; 93005; 94640; 97110; 97112; 97116; 97124; 97161; 97530; C9113; J0360; J0690; J1650; J1940; J2543; J2704; J2930; J7040; J7120; J7799; U0002; U0003

== ENCOUNTER 2020-06-19 09:32 | Inpatient (IN) | payer OTHER, MEDICARE ==
--- OUTSIDE RECORDS SUMMARY | 2020-06-19 14:37 | XMS REPORT | Continuity of Care Document ---
:1930 Author Organization [facility] t Address [address] [place] [address] Care Team Providers Name Role Phone Iban [...] DA Active [place] [facility] ins 06-19 00:00: [address] Medications This patient has no known medications. Procedures This patient has no known procedures. Encounters Start End Encounter Admission Attending Care Care Encounter Source Date/Time Date/Time Type Type Clinicians Facility Department ID 2019-06-19 2019-06-20 Emergency Dami Ferrera [facility] [id number]. [id number] 15:24:08 15:42:00 Chase Sears [id number] [place] [id number] [place] [id number] 2018-09-04 2018-09-04 Legal Support Specialist 1, Adc Lab [facility] [id number] 08:53:48 09:08:48 Visit Vinicio [id number] [place] [id number] [place] [id number] 2018-09-04 2018-09-04 Orders Doctor KORI [id number] 00:00:00 00:00:00 Only Unassigned, LENY [id number] [facility] [phone] [id number] Results Test Description Test Time Test Comments Results Result Comments Source ACT-ISTAT 2019-06-24 10:27:00 Test Item Value Reference Range Interpretation Comme nts -ISTA (test code = ACTI) 197 SEC 74-137 H BASIC METABOLIC [id number] 06:24:00 Test Item Value Reference Range Interpretation [...] 8.5 MG/DL 8.4-10.2 N CA) BASIC METABOLIC [id number] 06:23:00 Test Item Value Reference Range Interpretation [...] code = MG/DL 8.7-9.7 CA) BASIC METABOLIC [id number] 06:23:00 Test Item Value Reference Range Interpretation [...] code = MG/DL 8.7-9.7 CA) BASIC METABOLIC [id number] 06:21:00 Test Item Value Reference Range Interpretation [...] code = CA) MG/DL 8.7-9.7 BASIC METABOLIC [id number] 06:20:00 Test Item Value Reference Range Interpretation [...] code = CA) MG/DL 8.7-9.7 CBC W/AUTO [id number] 05:46:00 Test Item Value Reference Range Interpretation [...] 0.00 K/mm3 0.0-0.1 N NRBC#) GLUCOSE BEDSIDE [id number] 08:22:00 Test Item Value Reference Range Interpretation Comments GLUCOSE BEDSIDE TESTING (test code = 88 MG/DL 60-99 N GLUBED) GLUCOSE BEDSIDE [id number] 19:50:00 Test Item Value Reference Range Interpretation Comments GLUCOSE BEDSIDE TESTING (test code 136 MG/DL 60-99 H = GLUBED) GLUCOSE BEDSIDE [id number] 16:50:00 Test Item Value Reference Range Interpretation Comments GLUCOSE BEDSIDE TESTING (test code 127 MG/DL 60-99 H = GLUBED) GLUCOSE BEDSIDE [id number] 12:13:00 Test Item Value Reference Range Interpretation Comments GLUCOSE BEDSIDE TESTING (test code 120 MG/DL 60-99 H = GLUBED) GLUCOSE BEDSIDE [id number] 11:34:00 Test Item Value Reference Range Interpretation Comments GLUCOSE BEDSIDE TESTING (test code 128 MG/DL 60-99 H = GLUBED) - XR CHEST [id number] 07:56:00 Patient Name: MABLE LUNDBERG Unit No: [id number] EXAMS: CPT CODE: [id number] XR CHEST 1V 10041 Clinical Information: N STEMI. Chest pain. Dictation [...] Robin Orig Print D/T: S: 06/21/2019 (0759) [facility] NAME: MABLE LUNDBERG [address] [place] [address] PHYS: [place] [address] : 1930 AGE: 89 SEX: M LOC: [id number] A PHONE #: [phone] EXAM DATE: 06/21/2019 STATUS: ADM IN FAX #: [phone] RADIOLOGY NO: PAGE 1 Signed ReportGLUCOSE BEDSIDE [id number] 07:49:00 Test Item Value Reference Range Interpretation Comments GLUCOSE BEDSIDE TESTING (test code 103 MG/DL 60-99 H = GLUBED) COMPREHENSIVE METABOLIC [id number] 07:03:00 Test Item Value Reference Range Interpretation [...] 0-189 mg/dL VERY HIGH...... ...>/= 190 mg/dL [id number] 07:03:00 Test Item Value Reference Range Interpretation Comments MAGNESIUM (test code = MAG) 1.5 MG/DL 1.6-2.3 L LIPOPROTEIN LDL [id number] 07:03:00 Test Item Value Reference Range Interpretation Comments LIPOPROTEIN LDL DIRECT 59 mg/dL 100-129 L ===== (test code = LDLDIR) ======= ==Refe rence Interval: mg/dL mmol/L--------- ------ ------ ------ --Optimal <100 <2.6Near/abov e optimal 100-129 2.6-3.3Borderli ne High 130-159 3.4-4.1High 16 0-189 4.1-4.9Ve ry High >=190 >=4.9========= This LDL result is a direct measurement.=== ====== [id number] 07:03:00 Test Item Value Reference Range Interpretation Comments TROPONIN-I (test 0.195 NG/ML 0.012-0.033 CALLED TO Rena RODRIGUEZ R& code = TROPI) READBACK ON AT 0539 BY Dyllan Cotter COMPREHENSIVE METABOLIC [id number] 05:52:00 Test Item Value Reference Range Interpretation [...] 0-189 mg/dL VERY HIGH...... ...>/= 190 mg/dL [id number] 05:52:00 Test Item Value Reference Range Interpretation Comments MAGNESIUM (test code = MAG) 1.5 MG/DL 1.6-2.3 L LIPOPROTEIN LDL [id number] 05:52:00 Test Item Value Reference Range Interpretation Comments LIPOPROTEIN LDL DIRECT (test code = mg/dL 100-129 LDLDIR) [id number] 05:52:00 Test Item Value Reference Range Interpretation Comments TROPONIN-I (test 0.195 NG/ML 0.012-0.033 CALLED TO Rena RODRIGUEZ R& code = TROPI) READBACK ON AT 0539 BY Dyllan Cotter COMPREHENSIVE METABOLIC [id number] 05:39:00 Test Item Value Reference Range Interpretation [...] 0-189 mg/dL VERY HIGH...... ...>/= 190 mg/dL [id number] 05:39:00 Test Item Value Reference Range Interpretation Comments MAGNESIUM (test code = MAG) 1.5 MG/DL 1.6-2.3 L LIPOPROTEIN LDL [id number] 05:39:00 Test Item Value Reference Range Interpretation Comments LIPOPROTEIN LDL DIRECT (test code = mg/dL 100-129 LDLDIR) [id number] 05:39:00 Test Item Value Reference Range Interpretation Comments TROPONIN-I (test 0.195 NG/ML 0.012-0.033 CALLED TO Rena RODRIGUEZ R& code = TROPI) READBACK ON AT 0539 BY Dyllan Cotter COMPREHENSIVE METABOLIC [id number] 05:24:00 Test Item Value Reference Range Interpretation [...] LDL (test MG/DL 0-99 code = LDL) [id number] 05:24:00 Test Item Value Reference Range Interpretation Comments MAGNESIUM (test code = MAG) 1.5 MG/DL 1.6-2.3 L [id number] 05:24:00 Test Item Value Reference Range Interpretation Comments TROPONIN-I (test code = TROPI) NG/ML 0.0-0.045 PROTHROMBIN [id number] 05:17:00 Test Item Value Reference Range Interpretation [...] LABON 06/20/19AT 1630 BY Geovanna Feng W/AUTO [id number] 05:03:00 Test Item Value Reference Range Interpretation [...]
[2020-06-19] MEDS ORDERED: ACETAMINOPHEN 650MG/RECT SUPP PR PRN (15:12)
[2020-06-19] MEDS ORDERED: HYDRALAZINE HCL 20 MG/ML VIAL IV PRN (15:12)
[2020-06-19] MEDS ORDERED: ONDANSETRON 4 MG/2 ML VIAL IV PRN (15:12)
[2020-06-19] MEDS ORDERED: ACETAMINOPHEN 500 MG TAB PO PRN (15:12)
--- NOTE | 2020-06-19 15:37 | P.HP ---
Certification for Inpatient Patient admitted to: Inpatient With expected LOS: >2 Midnights Patient will require the following post-hospital care: Other (SNF vs Hospice) Practitioner: I am a practitioner with admitting privileges, knowledge of patient current condition, hospital course, and medical plan of care. Services: Services provided to patient in accordance with Admission requirements found in Title 42 Section 412.3 of the Code of Federal Regulations Patient History Date of Service: 06/19/20 Primary Care Provider: unknown Reason for admission: Aspiration pneumonia History of Present Illness: 89-year-old male with history of recent hospitalization for slurred speech, right-sided dysmetria/weakness, ataxia and multiple falls. 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 Patient also with underlying CAD, hypertension, chronic renal disease stage III, history of bladder/prostate/colon cancer with prior colostomy, anemia of chronic disease, hyperlipidemia and 3.9 cm abdominal aortic aneurysm. I was called to evaluate patient in ED rehab due to shortness of breath. Case discussed in detail with physician. Patient was given breathing treatment, steroid with slight improvement. Suctioning also addressed. Patient was sent for CT scan showing bilateral lung opacities, greater in the medial right lung base. This is likely aspiration pneumonia. Patient had recent PEG tube. There was no unexpected abnormality noted on CT scan. Patient was sent to the medical floor for further treatment. Prior to moving to the floor physician spoke to son who has medical power of consumer attorney. Advanced directives addressed in detail. Patient is DNR. Allergies No Known Allergies Allergy (Unverified 06/02/20 21:43) Home medications list reviewed: Yes Home Medications: Aspirin 81 mg PO DAILY 06/02/20 Clopidogrel Bisulfate [Plavix] 75 mg PO DAILY 06/02/20 Ferrous Sulfate [Iron] 325 mg PO DAILY 06/02/20 Nebivolol HCl [Bystolic] 10 mg PO DAILY 06/02/20 Atorvastatin Calcium [Lipitor] 40 mg PO DAILY #30 tablet 06/04/20 Cyanocobalamin (Vitamin B-12) [Vitamin B-12] 1,000 mcg PO DAILY #90 capsule 06/04/20 Losartan Potassium [Cozaar*] 50 mg PO DAILY #30 tablet 06/04/20 Thiamine HCl 100 mg PO DAILY #90 tablet 06/04/20 - Past Medical/Surgical History Diabetic: No -: CAD -: Hypertension -: Bladder, prostate, colon cancer,colostomy ,hx of prostectomy -: CVA -: Chronic renal disease -: Anemia chronic disease -: Recent PEG tube placement -: Colostomy -: Prostatectomy -: PEG tube Psychosocial/ Personal History: Patient is retired, lives alone - Family History Father -: Cancer Mother -: Cancer Brother -: Heart disease Sister -: Heart disease - Social History Smoking Status: Unknown if ever smoked Alcohol use: No CD- Drugs: No Caffeine use: Yes Place of Residence: Home (I believe patient was at home prior.) Review of Systems is unable to be obtained Physical Examination - Physical Exam General: Alert, Other (Patient was arousable to voice and pain.) HEENT: Other (Increased congestion noted to the oropharynx.) Neck: Supple Respiratory: Other (Patient appears much improved since earlier this morning. Crackles to the bases noted. Congestion also noted.) Cardiovascular: Normal pulses, Regular rate/rhythm Gastrointestinal: Normal bowel sounds, Other (Postoperative changes noted. Colostomy in place. PEG tube in place. 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 Continue with IV antibiotic therapyZosyn. Will provide to be prophylaxisLovenox. Will also continue with albuterol, Atrovent. We will add Mucomyst. Scopolamine patch restarted. Will review and restart other current medications. Aspiration precaution in place. Spoke with surgery who placed PEG tube. There was no residuals noted. We will keep the patient n.p.o. at this time for at least the next 24 hours. We will continue to monitor and reassess. Recheck lab and chest x-ray tomorrow. Care discussed with current family members in the room. Will discuss further with medical power of consumer attorney. Physician Dr. Amato who was covering for Dr. Morgan spoke to the medical power of consumer attorney. Advanced directives addressed in detail. Patient is DNR. We will continue to monitor and reassess. If his condition continues to decline will need to readdress with family on plan of care. History of slurred speech, right-sided dysmetria/weakness, ataxia, and multiple falls secondary to left acute pontine CVA affecting left posterior cerebral distribution with MRI showing abnormal signal within the christ slightly left of midline anteriorly measuring 4 mm and an additional abnormal signal within the left lateral christ measuring 6 mm: We will need to continue with DVT prophylaxisLovenox. Continue Plavix. Will restart previous medications. Recent PEG tube placement: Currently NPO for the next 24 hours. CAD: We will need to reassess and restart home Acacian. Hypertension : Reassess and restart current medication Chronic kidney disease stage III: We will monitor closely History of bladder, prostate, colon cancer status post colostomy placement: Continue with colostomy care Abnormal thyroid dysfunction: We will review lab Anemia of chronic disease: We will monitor closely Hyperlipidemia: Restart medication 3.9 cm abdominal aortic aneurysm: Monitor closely. Discharge Plan: Home Plan to discharge in: Greater than 2 days - Advance Directives Does patient have a Living Will: No Does patient have a Durable POA for Healthcare: No - Code Status/Comfort Care Code Status Assessed: Yes (Patient is DNR) Time Spent Managing Pts Care (In Minutes): 55
[2020-06-19 15:40] VITALS: BMI 28.1
[2020-06-19] MEDS ORDERED: SCOPOLAMINE HYDROBROMIDE PATCH TD SCH (17:00)
[2020-06-19] MEDS: ENOXAPARIN 40 MG/0.4 ML SQ SCH (17:35)
[2020-06-19] MEDS: D5 0.45 NS 1,000 ML IV SCH (17:35)
[2020-06-19] MEDS: PIPER/TAZO/NS 3.375gm 3.375 GM/100 ML BAG IVPB SCH (17:35)
[2020-06-19] MEDS: ACETYLCYST 20% 4 ML VIAL IH SCH (19:45)
[2020-06-19] MEDS: ALBUTEROL 2.5 MG/3 ML NEB SOL NEB PRN (19:45)
[2020-06-19] MEDS: IPRATROPIUM BROM 0.5MG/2.5ML NEB PRN (19:45)
[2020-06-19] MEDS: ATORVASTATIN 40 MG TAB PO SCH (21:00)
[2020-06-19] MEDS: MAGNESIUM OXIDE 400 MG TAB PO SCH (21:00)
[2020-06-19] MEDS: FAMOTIDINE 20 MG/2 ML VIAL IV SCH (22:51)
[2020-06-20] MEDS: PIPER/TAZO/NS 3.375gm 3.375 GM/100 ML BAG IVPB SCH ×3 (01:02→17:37)
[2020-06-20 05:28] LABS: Absolute Lymphocytes (CBC) 0.2 K/uL (0.7-4.9); Basophils % 0.1 % (0-1.3); Hematocrit 31.8 % (39.6-49.0); Lymphocytes % 2.3 % (15.3-44.8); RBC Red Blood Cell Count 3.31 M/uL (4.33-5.43)
[2020-06-20 05:54] LABS: Potassium 4.1 mmol/L (3.5-5.1)
[2020-06-20 07:36] LABS: Blood Morphology Comment NOT SEEN (NOT SEEN); Platelet Estimate ADEQ; White Blood Cell Scan OK (OK)
--- NOTE | 2020-06-20 07:46 | RAD REPORT ---
EXAM DESCRIPTION: Silvina Single View06/20/2020 6:06 am CLINICAL HISTORY: Shortness of breath COMPARISON: June 19, 2020 FINDINGS: No change in mild bibasilar lung opacities Upper lobes appear clear. Heart remains enlarged
[2020-06-20] MEDS: ALBUTEROL 2.5 MG/3 ML NEB SOL NEB PRN ×2 (08:38→14:07)
[2020-06-20] MEDS: ACETYLCYST 20% 4 ML VIAL IH SCH (08:38)
[2020-06-20] MEDS: IPRATROPIUM BROM 0.5MG/2.5ML NEB PRN ×2 (08:38→14:07)
[2020-06-20] MEDS ORDERED: FOLIC ACID 5 MG/ML VIAL IVP SCH (09:00)
[2020-06-20] MEDS: ENOXAPARIN 40 MG/0.4 ML SQ SCH (09:00)
[2020-06-20] MEDS: MAGNESIUM OXIDE 400 MG TAB PO SCH ×2 (09:00→20:49)
[2020-06-20] MEDS: NEBIVOLOL HCL 5 MG TAB PO SCH (09:00)
[2020-06-20] MEDS: CLOPIDOGREL 75 MG TABLET PO SCH (09:00)
[2020-06-20] MEDS: THIAMINE 200 MG/2 ML INJ IVP SCH (09:22)
[2020-06-20] MEDS: FAMOTIDINE 20 MG/2 ML VIAL IV SCH ×2 (09:23→20:50)
[2020-06-20] MEDS: FOLIC ACID 1 MG in NA CHLORIDE 0.9% 50 ML IV SCH (09:26)
--- NOTE | 2020-06-20 10:58 | P.CNS ---
Date of Consult: 06/20/20 Primary Care Provider: unknown Chief Complaint: Aspiration pneumonia History of Present Illness: Patient is 89 years of age transferred from rehab admitted with falls ataxia probably from a stroke many other multiple medical problems currently nonverbal became short of breath shows some interstitial changes on the chest x-ray DT scan no evidence of obvious pneumonia Allergies No Known Allergies Allergy (Unverified 06/02/20 21:43) Home Medications: Aspirin 81 mg PO DAILY 06/02/20 Clopidogrel Bisulfate [Plavix] 75 mg PO DAILY 06/02/20 Ferrous Sulfate [Iron] 325 mg PO DAILY 06/02/20 Nebivolol HCl [Bystolic] 10 mg PO DAILY 06/02/20 Atorvastatin Calcium [Lipitor] 40 mg PO DAILY #30 tablet 06/04/20 Cyanocobalamin (Vitamin B-12) [Vitamin B-12] 1,000 mcg PO DAILY #90 capsule 06/04/20 Losartan Potassium [Cozaar*] 50 mg PO DAILY #30 tablet 06/04/20 Thiamine HCl 100 mg PO DAILY #90 tablet 06/04/20 - Past Medical/Surgical History Diabetic: No -: CAD -: Hypertension -: Bladder, prostate, colon cancer,colostomy ,hx of prostectomy -: CVA -: Chronic renal disease -: Anemia chronic disease -: Recent PEG tube placement -: Colostomy -: Prostatectomy -: PEG tube Psychosocial/ Personal History: Patient is retired, lives alone - Family History Father Medical History: Cancer Mother Medical History: Cancer Brother Medical History: Heart disease Sister Medical History: Heart disease - Social History Alcohol use: No CD- Drugs: No Caffeine use: Yes Place of Residence: Home (I believe patient was at home prior.) Review of Systems is unable to be obtained Physical Examination Temp Pulse Resp BP Pulse Ox 98.6 F 63 18 148/63 H 98 06/20/20 08:00 06/20/20 08:00 06/20/20 08:00 06/20/20 08:00 06/20/20 08:00 Respiratory: Clear to auscultation bilaterally Cardiovascular: No edema, Normal S1 S2 Laboratory Data (last 24 hrs) 06/20/20 04:54: Sodium 138, Potassium 4.1, BUN 49 H, Creatinine 1.99 H, Glucose 273 H, Magnesium 2.0 06/20/20 04:54: WBC 10.30 D, Hgb 10.9 L, Hct 31.8 L, Plt Count 191 - Problems (1) Respiratory distress Current Visit: Yes Status: Acute Plan: Patient is 89 years of age multiple medical problems transfer from the rehab unit as currently nonverbal an audible wheezing chest x-ray shows some interstitial changes no evidence of obvious pneumonia white count is normal renal function is worse patient has a PEG tube increase water flushes pressure diagnosis PE he is at [facility] is the check with family members regarding use of anticoagulation are possibly hospice care Dc Mucomyst white count is normal oxygenation satisfactory prognosis poor will not be able to do a CT angio consider empiric anticoagulation with Eliquis 5 mg b.i.d. approved by family members patient is on Zosyn no indications for antibiotics right now can Dc
--- NOTE | 2020-06-20 12:38 | P.PN ---
Subjective Date of Service: 06/20/20 Primary Care Provider: unknown Chief Complaint: Aspiration pneumonia Subjective: Other (Unchanged as yesterday. Currently on 3 L per nasal cannula.) Physical Examination - Vital Signs Temperature: 99.6 F Blood Pressure: 167/77 Pulse: 85 Respirations: 20 Pulse Ox (%): 95 - Studies Laboratory Data (last 24 hrs) 06/20/20 04:54: Sodium 138, Potassium 4.1, BUN 49 H, Creatinine 1.99 H, Glucose 273 H, Magnesium 2.0 06/20/20 04:54: WBC 10.30 D, Hgb 10.9 L, Hct 31.8 L, Plt Count 191 Assessment & Plan Discharge Plan: Home Plan to discharge in: Greater than 2 days Physician Review Additional Text: Physical Exam: GENERAL: Patient alert but no significant cooperation noted. VITAL SIGNS: [Reviewed] HEENT: Neck supple. NECK: [Supple. No carotid bruits. No lymphadenopathy or thyromegaly.] LUNGS: Crackles to the bases. Patient remains on 3 L per nasal cannula. HEART: [Regular rate and rythem, no appreciable gallops, rubs, murmurs or extra heart sounds] ABDOMEN: [Soft, nontender, and nondistended. Positive bowel sounds. No hepatosplenomegaly was noted.] EXTREMITIES: [Without any cyanosis, clubbing, rash, lesions or peripheral edema.] NEUROLOGIC: Patient alert. Not cooperative with commands. SKIN: [Normal color, turgor and temperature. 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 Continue with IV antibiotic therapy. DVT prophylaxis in place. Discontinue Mucomyst. Continue with suction as needed. Will discuss with surgery on when to restart PEG tube feeds. Patient is DNR. Will discuss plan of care with family. If no significant change will consider continued care or hospice. 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 Continue Plavix. Will restart previous medications. Recent PEG tube placement: Currently NPO for the next 24 hours. CAD: Reviewed restart home medication. Hypertension : Review and restart medication Chronic kidney disease stage III: Continue IV fluids. History of bladder, prostate, colon cancer status post colostomy placement: Continue with colostomy care Abnormal thyroid dysfunction: We will review lab Anemia of chronic disease: We will monitor closely Hyperlipidemia: Continue medication 3.9 cm abdominal aortic aneurysm: Monitor closely. Code Status: Patient is DNR DVT prophylaxis: [Lovenox] Advanced Care Planning-30 minutes: Left message with son. Will discuss plan of care in detail concerning the patient. Time Spent Managing Pts Care (In Minutes): 55
[2020-06-20] MEDS: ATORVASTATIN 40 MG TAB PO SCH (20:49)
[2020-06-20] MEDS: D5 0.45 NS 1,000 ML IV SCH (20:51)
[2020-06-21] MEDS: PIPER/TAZO/NS 3.375gm 3.375 GM/100 ML BAG IVPB SCH ×2 (00:55→10:20)
[2020-06-21] MEDS: D5 0.45 NS 1,000 ML IV SCH (01:20)
[2020-06-21 05:56] LABS: Absolute Lymphocytes (CBC) 0.7 K/uL (0.7-4.9); Basophils % 0.2 % (0-1.3); Lymphocytes % 5.8 % (15.3-44.8); MPV 8.7 fL (7.6-11.3); RBC Red Blood Cell Count 3.78 M/uL (4.33-5.43)
[2020-06-21 06:08] LABS: Magnesium 2.2 mg/dL (1.8-2.4); Potassium 4.4 mmol/L (3.5-5.1)
[2020-06-21] MEDS: ALBUTEROL 2.5 MG/3 ML NEB SOL NEB PRN (08:15)
[2020-06-21] MEDS: IPRATROPIUM BROM 0.5MG/2.5ML NEB PRN (08:15)
[2020-06-21] MEDS: NEBIVOLOL HCL 5 MG TAB PO SCH (09:00)
[2020-06-21] MEDS: ENOXAPARIN 40 MG/0.4 ML SQ SCH (09:00)
[2020-06-21] MEDS: MAGNESIUM OXIDE 400 MG TAB PO SCH (09:00)
[2020-06-21] MEDS: CLOPIDOGREL 75 MG TABLET PO SCH (09:00)
[2020-06-21 09:31] VITALS: O2SAT 95
--- NOTE | 2020-06-21 09:37 | P.PN ---
Subjective Date of Service: 06/21/20 Primary Care Provider: unknown Chief Complaint: Aspiration pneumonia Subjective: Other (Patient remains stable. Unchanged since yesterday.) Physical Examination - Vital Signs Temperature: 98.7 F Blood Pressure: 177/83 Pulse: 89 Respirations: 26 Pulse Ox (%): 90 - Studies Laboratory Data (last 24 hrs) 06/21/20 05:27: Sodium 141, Potassium 4.4, BUN 52 H, Creatinine 1.76 H, Glucose 156 H, Magnesium 2.2 06/21/20 05:27: WBC 12.90 H D, Hgb 12.0 L, Hct 37.0 L D, Plt Count 280 D Assessment & Plan Discharge Plan: Other (Home with home health versus hospice versus skilled placement or long-term care) Plan to discharge in: 24 Hours Physician Review Additional Text: Physical Exam: GENERAL: Patient alert but not significantly cooperative. Patient with aphasia. VITAL SIGNS: Reviewed HEENT: Neck supple. NECK: Supple. No carotid bruits. No lymphadenopathy or thyromegaly. LUNGS: Lungs sound clear today. Patient remains on 3 L per nasal cannula. HEART: [Regular rate and rhythm ABDOMEN: Soft, nontender, and nondistended. Positive bowel sounds. No hepatosplenomegaly was noted. EXTREMITIES: Without any cyanosis, clubbing, rash, lesions or peripheral edema. NEUROLOGIC: Patient alert. Not cooperative with commands. SKIN: Normal color, turgor and temperature. No ulcerations or rashes noted. 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 Continue DVT prophylaxis. Patient remains on 3 L per nasal cannula. Case discussed with pulmonology yesterday. Case also discussed with surgery. Will initiate PEG tube feeds. We will start this slowly. Will need to monitor for aspiration. Patient is DNR. I will meet with son today to discuss plan of care for the patient. We will need to consider options including home with home health with hospice versus long-term care. Continue other home medications. DVT prophylaxis in place. Await decision on plan of care with son. I will turn to service over to the hospitalist team tomorrow. I will go over the plan of care with him. 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 Continue Plavix. Continue with medications Recent PEG tube placement: Dietary consulted to reinitiate PEG tube feeds. Will need to monitor for aspiration.. CAD: Continue medication. Hypertension : Continue medication. Will monitor and adjust appropriately. Chronic kidney disease stage III: PEG tube feeds to be reinitiated. Once this is done we will consider discontinuing IV fluids. Renal function overall improved. History of bladder, prostate, colon cancer status post colostomy placement: Continue with colostomy care Abnormal thyroid dysfunction: Overall stable. Continue to monitor. Anemia of chronic disease: Overall stable. We will continue to monitor Hyperlipidemia: Continue medication 3.9 cm abdominal aortic aneurysm: Monitor closely. Code Status: Patient is DNR DVT prophylaxis: Lovenox Advanced Care Planning-30 minutes: Spoke with son yesterday. Patient remains DNR. Will meet with son today to discuss plan of care for the patient. We will need to consider multiple options including home with home health and the possibility of hospice versus long-term care. Time Spent Managing Pts Care (In Minutes): 55
[2020-06-21] MEDS: THIAMINE 200 MG/2 ML INJ IVP SCH (10:21)
[2020-06-21] MEDS: FAMOTIDINE 20 MG/2 ML VIAL IV SCH (10:24)
[2020-06-21] MEDS: FOLIC ACID 1 MG in NA CHLORIDE 0.9% 50 ML IV SCH (12:56)
[2020-06-21 13:19] VITALS: BP 193/88; TEMP 99.1
[2020-06-21] MEDS ORDERED: JEVITY 1.5 CAL LIQUID 1,000 ML BOT RTH SCH (14:00)
--- NOTE | 2020-06-21 15:06 | P.DS ---
Admission Date: 06/19/20 Discharge Date: 06/21/20 Primary Care Provider: unknown Disposition: Discharge Condition: GOOD Reason for Admission: Aspiration pneumonia Consultations: Pulmonary-Dr. Rodriguez Procedures: COVID: Negative CT scan: COMPARISON: C Spine Wo Con dated 06/02/2020; Chest Abd Pelvis Wo Con dated 06/19/2020 TECHNIQUE: All CT scans are performed using dose optimization technique as appropriate and may include automated exposure control or mA/KV adjustment according to patient size. FINDINGS: CT soft tissue of the neck and CT chest/abdomen/pelvis without contrast was performed No intrinsic or extrinsic neck mass is identified. The paranasal sinuses and mastoids appear clear. No bulky lymphadenopathy in the neck. Mild bilateral carotid atherosclerosis. Mild infiltrate is noted in both lung bases, greater on the right in the medial right lung base, suspicious for pneumonia/aspiration. Cardiac size is normal. Small hiatal hernia. Trace pneumoperitoneum is seen likely attributable to recent PEG tube placement. PEG tube appears in expected positioning. There is no fluid collection or bowel between the entry site of the PEG tube in the abdominal wall. Stomach is decompressed. No acute solid organ finding. Cholecystectomy. Left lower quadrant ostomy is present with parastomal hernia. Prostatectomy clips. Mild lumbar degenerative spondylosis. 4 cm infrarenal abdominal aortic aneurysm. Mild lumbar degenerative changes are present. IMPRESSION: Bibasilar lung opacities, greater in the medial right lung base, probably represent pneumonia/ aspiration. No unusual or unexpected abnormality related to the PEG tube seen. No acute neck abnormality. CT neck: COMPARISON: C Spine Wo Con dated 06/02/2020; Chest Abd Pelvis Wo Con dated 06/19/[address] scans are performed using dose optimization technique as appropriate and may include automated exposure control or mA/KV adjustment according to patient size. FINDINGS: CT soft tissue of the neck and CT chest/abdomen/pelvis without contrast was performed No intrinsic or extrinsic neck mass is identified. The paranasal sinuses and mastoids appear clear. No bulky lymphadenopathy in the neck. Mild bilateral carotid atherosclerosis. Mild infiltrate is noted in both lung bases, greater on the right in the medial right lung base, suspicious for pneumonia/aspiration. Cardiac size is normal. Small hiatal hernia. Trace pneumoperitoneum is seen likely attributable to recent PEG tube placement. PEG tube appears in expected positioning. There is no fluid collection or bowel between the entry site of the PEG tube in the abdominal wall. Stomach is decompressed. No acute solid organ finding. Cholecystectomy. Left lower quadrant ostomy is present with parastomal hernia. Prostatectomy clips. Mild lumbar degenerative spondylosis. 4 cm infrarenal abdominal aortic aneurysm. Mild lumbar degenerative changes are present. IMPRESSION: Bibasilar lung opacities, greater in the medial right lung base, probably represent pneumonia/ aspiration. No unusual or unexpected abnormality related to the PEG tube seen. No acute neck abnormality. CXR: CLINICAL HISTORY: Shortness of breath COMPARISON: June 19, 2020 FINDINGS: No change in mild bibasilar lung opacities Upper lobes appear clear. 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 Patient also with underlying CAD, hypertension, chronic renal disease stage III, history of bladder/prostate/colon cancer with prior colostomy, anemia of chronic disease, hyperlipidemia and 3.9 cm abdominal aortic aneurysm. I was called to evaluate patient in inpt rehab due to shortness of breath. Case discussed in detail with physician. Patient was given breathing treatment, steroid with slight improvement. Suctioning also addressed. Patient was sent for CT scan showing bilateral lung opacities, greater in the medial right lung base. This is likely aspiration pneumonia. Patient had recent PEG tube. There was no unexpected abnormality noted on CT scan. Patient was sent to the medical floor for further treatment. Prior to moving to the floor physician spoke to son who has medical power of senior trial attorney. Advanced directives addressed in detail. Patient is DNR. Hospital Course: Patient was recently hospitalized for slurred speech, right-sided dysmetria/weakness, ataxia and multiple falls secondary to acute pontine CVA. This affected the left posterior cerebral distribution with MRI showing abnormal signal within the christ slightly left of midline anteriorly measuring 4 mm and additional abnormal signal within the left lateral christ measuring 6 mm. Patient also has a history of CAD, hypertension, chronic renal disease stage III, history of bladder/prostate/colon cancer with prior colostomy, anemia of chronic disease, hyperlipidemia and 3.9 cm abdominal aortic aneurysm. The patient was in inpatient rehab to help with the CVA. The patient did struggle during the course of his rehab stay. During his rehab patient was having dysphagia. He was evaluated for peg tube placement. Patient was seen by surgery. Family decided to proceed with PEG tube in hopes that his nutrition would improve and help his rehab. While in rehab after the procedure he had been doing well then became very dyspneic. Patient found to have acute respiratory failure with aspiration pneumonia primarily on the right side. Acute on chronic renal disease was noted. Patient was transferred to the medical floor for further treatment and evaluation. Pulmonology was consulted. Unfortunately his condition did not improve. Patient continued to decline. Patient continued with increase oxygen requirement. Patient remained on IV antibiotic therapy and IV fluids. I had spoken to the son at length concerning the patient's medical problems and prognosis. Advance care directives were addressed in detail. The patient remained to DO NOT RESUSCITATE. Son understood his prognosis was poor. He proceeded to discuss details with his family. After discussion with his family the son decided to place the patient in inpatient hospice. He was to continue with comfort measures. Before this occurred patient peacefully. May he rest in peace. Vital Signs/Physical Exam: Temp Pulse Resp BP Pulse Ox 99.1 F 95 H 26 H 193/88 H 92 06/21/20 12:00 06/21/20 12:00 06/21/20 12:00 06/21/20 12:00 06/21/20 12:00 Laboratory Data at Discharge: WBC 12.90 K/uL (4.3-10.9) H D 06/21/20 05:27 Hgb 12.0 g/dL (13.6-17.9) L 06/21/20 05:27 Hct 37.0 % (39.6-49.0) L D 06/21/20 05:27 Plt Count 280 K/uL (152-406) D 06/21/20 05:27 Sodium 141 mmol/L (136-145) 06/21/20 05:27 Potassium 4.4 mmol/L (3.5-5.1) 06/21/20 05:27 BUN 52 mg/dL (7-18) H 06/21/20 05:27 Creatinine 1.76 mg/dL (0.55-1.3) H 06/21/20 05:27 Glucose 156 mg/dL (74-106) H 06/21/20 05:27 Magnesium 2.2 mg/dL (1.8-2.4) 06/21/20 05:27 Home Medications: Aspirin 81 mg PO DAILY 06/02/20 Clopidogrel Bisulfate [Plavix] 75 mg PO DAILY 06/02/20 Ferrous Sulfate [Iron] 325 mg PO DAILY 06/02/20 Nebivolol HCl [Bystolic] 10 mg PO DAILY 06/02/20 Atorvastatin Calcium [Lipitor] 40 mg PO DAILY #30 tablet 06/04/20 Cyanocobalamin (Vitamin B-12) [Vitamin B-12] 1,000 mcg PO DAILY #90 capsule 06/04/20 Losartan Potassium [Cozaar*] 50 mg PO DAILY #30 tablet 06/04/20 Thiamine HCl 100 mg PO DAILY #90 tablet 06/04/20
[2020-06-22] MEDS ORDERED: FAMOTIDINE 20 MG/2 ML VIAL IV SCH (09:00)
== END 2020-06-21 17:18 | disposition expired | DRG 177 ==
LOC: 2ND 09:32 → 4TH 15:51 → 2ND 15:53
PROVIDERS: ADMIT Family Medicine; ATTEND Family Medicine
DX: J69.0 Pneumonitis due to inhalation of food and vomit (principal); J96.00 Acute respiratory failure, unspecified whether with hypoxia or hypercapnia; R47.01 Aphasia; I25.10 Atherosclerotic heart disease of native coronary artery without angina pectoris; E78.5 Hyperlipidemia, unspecified; I12.9 Hypertensive chronic kidney disease with stage 1 through stage 4 chronic kidney disease, or unspecified chronic kidney disease; N18.30 Chronic kidney disease, stage 3 unspecified; I71.4 Abdominal aortic aneurysm, without rupture; D63.8 Anemia in other chronic diseases classified elsewhere; I69.391 Dysphagia following cerebral infarction; R13.10 Dysphagia, unspecified; R94.6 Abnormal results of thyroid function studies; Z66 Do not resuscitate; Z85.46 Personal history of malignant neoplasm of prostate; Z85.51 Personal history of malignant neoplasm of bladder; Z79.82 Long term (current) use of aspirin; Z79.02 Long term (current) use of antithrombotics/antiplatelets; Z79.899 Other long term (current) drug therapy; Z60.2 Problems related to living alone; Z90.49 Acquired absence of other specified parts of digestive tract; Z93.3 Colostomy status
CPT/HCPCS: 36415; 71045; 80048; 83735; 85025; 94640; J1650; J2543; J3411; J7799